=== PATIENT | female | born 1945 | race Caucasian/White ===

== ENCOUNTER → 2016-09-20 | Outpatient (CLI) | payer MEDICARE, MEDICAID ==
[~2016-09-20] MED LIST: ALPH0.156 OU; ALPH0.1S OU; ARTIDRO OU; FOSA70TA PO; HYDR12.55 PO; MILKSUS PO; MULTCAP11 PO; RECL5INJ2 IV; TIMO5OPG OU; TRAV0.00 OP; TRAZ25TA PO; XALA0.002 OU; ZOCO40TA PO; [UNRECOGNIZED DRUG - CODE] PO
--- NOTE | 2016-09-20 14:56 | REPMRS ---
Patient History The patient states she had a clinical breast exam in Patient is postmenopausal and is nulliparous. No known family history of cancer. Digital Woman Screen Mammo: September 20, 2016 - Exam #: [id number] Bilateral CC and MLO view(s) were taken. Technologist: Lay Velasco, Technologist Prior study comparison: September 19, 2015, digital woman screen mammo performed at [facility]. August 21, 2014, digital woman screen mammo performed at [facility]. June 27, 2013, bilateral digital mammo screening bilat, performed at [facility]. FINDINGS: There are scattered fibroglandular densities. There has been no change in the appearance of the mammogram from the prior studies. There is a mild amount of scattered fibroglandular density which is fairly symmetric. There is no interval development of dominant mass, architectural distortion, or clustered microcalcification suggestive of malignancy. ASSESSMENT: BI-RADS/ACR category 1 mammogram. Negative. Recommendation Routine screening mammogram in 1 year (for women over age 40). This mammogram was interpreted with the aid of an FDA-approved computer-aided dectection system. Electronically Signed By: David Perez MD 09/20/16 1923
== END ==
LOC: M WHC 13:10
PROVIDERS: ATTEND Nurse Practitioner Family
DX: Z12.31 Encounter for screening mammogram for malignant neoplasm of breast (principal); Z78.0 Asymptomatic menopausal state; Z12.12 Encounter for screening for malignant neoplasm of rectum; Z92.89 Personal history of other medical treatment
CPT/HCPCS: 82270; G0101; G0202

== ENCOUNTER → 2016-09-25 | Outpatient (CLI) | payer MEDICARE, MEDICAID ==
[2016-09-25 18:18] LABS: BASO # 0.1 K/mm3 (0.0-0.2); BASO % 0.6 % (0.0-1.0); EOS # 0.3 K/mm3 (0.0-0.50); EOS % 2.9 % (0.0-3.0); LARGE UNSTAINED CELL # 0.1 K/mm3 (0.0-0.4); LARGE UNSTAINED CELL % 1.2 % (0.0-4.0); LYMPH # 2.3 K/mm3 (1.5-4.5); LYMPH % 20.7 % (24.0-44.0); MEAN CORPUSCULAR HEMOGLOBIN 31.3 pg (27.0-33.0); MEAN CORPUSCULAR HGB CONC 33.1 g/dl (32.0-36.5); MEAN CORPUSCULAR VOLUME 94.4 fl (80.0-96.0); MONO # 0.6 K/mm3 (0.0-0.8); MONO % 5.8 % (0.0-5.0); NEUTROPHILS # 7.1 K/mm3 (1.8-7.7); NEUTROPHILS % 68.9 % (36.0-66.0); PLATELET COUNT, AUTOMATED 261 k/mm3 (150-450); RED CELL DISTRIBUTION WIDTH 14.1 % (11.5-14.5); WHITE BLOOD COUNT 10.3 K/mm3 (4.0-10.0)
[2016-09-25 18:35] LABS: ALBUMIN 3.3 GM/DL (3.2-5.2); ALBUMIN/GLOBULIN RATIO 0.92 (1.00-1.93); ALKALINE PHOSPHATASE 137 U/L (45-117); ALT/SGPT 32 U/L (12-78); ANION GAP 9 MEQ/L (8-16); AST/SGOT 36 U/L (15-37); BILIRUBIN,TOTAL 0.3 MG/DL (0.2-1.0); BLOOD UREA NITROGEN 11 MG/DL (7-18); CALCIUM LEVEL 8.9 MG/DL (8.8-10.2); CARBON DIOXIDE LEVEL 33 MEQ/L (21-32); CHLORIDE LEVEL 101 MEQ/L (98-107); CHOLESTEROL LEVEL 190 MG/DL (<200); CREATININE FOR GFR 0.76 MG/DL (0.55-1.02); GLOMERULAR FILTRATION RATE > 60.0 (>39); GLUCOSE, FASTING 114 MG/DL (83-110); POTASSIUM SERUM 4.2 MEQ/L (3.5-5.1); SODIUM LEVEL 143 MEQ/L (136-145); TOTAL PROTEIN 6.9 GM/DL (6.4-8.2); TRIGLYCERIDES LEVEL 182 MG/DL (<150)
== END ==
LOC: M WUC 10:05
PROVIDERS: ATTEND Family Medicine
DX: M81.0 Age-related osteoporosis without current pathological fracture (principal); I10 Essential (primary) hypertension

== ENCOUNTER 2016-10-06 11:26 | Outpatient (CLI) | payer MEDICARE, MEDICAID ==
[~2016-10-06] VITALS: Ht 154.9 cm; Wt 80.0 kg
[2016-10-06] MEDS ORDERED: ZOLEDRONIC ACID 5 MG in APPROPRIATE DILUENT 1 EA IV ONE (12:00)
== END 2016-10-06 12:30 | disposition home or self-care (01) ==
LOC: M INFU 11:26
PROVIDERS: ATTEND Family Medicine
DX: M81.0 Age-related osteoporosis without current pathological fracture (principal); R13.10 Dysphagia, unspecified; Z79.899 Other long term (current) drug therapy
CPT/HCPCS: 96365; J3489

== ENCOUNTER 2017-02-14 17:22 | Emergency (ER) | payer MEDICARE, MEDICAID ==
--- NOTE | 2017-02-14 19:08 | REP ---
Clinical: Pain. Technique: AP and lateral views of the right tibia / fibula. Findings: Advanced arthritic degenerative changes at the knee and ankle joints noted including osteophytosis, chondrocalcinosis, subchondral sclerosis and joint space narrowing. No acute fracture dislocation. Surrounding soft tissues normal. Impression: Advanced arthritic degenerative changes at the knee and ankle. No acute fracture or dislocation. Signed by Renato Meadows MD 02/14/2017 07:00 P
--- NOTE | 2017-02-14 19:10 | REP ---
Clinical: Lower back pain. Technique: AP, lateral, bilateral oblique and coned-down views. Comparison: 09/21/2005. Findings: Multilevel degenerative changes include bridging fused osteophytes, endplate sclerosis, disc space narrowing, and hypertrophic facet changes. Compression fracture at T12 is relatively new compared to 2006 although likely nonacute given the adjacent osteophytosis. Impression: Advanced multilevel degenerative changes. Likely nonacute compression fracture at T12. Signed by Renato Meadows MD 02/14/2017 07:02 P
--- NOTE | 2017-02-14 19:11 | REP ---
Clinical: Right lower extremity pain. Technique: AP view of the pelvis. Comparison: 09/21/2005. Findings: Advanced degenerative changes include diffuse enthesopathy as well as advanced arthritic degenerative changes to the bilateral hips including osteophytosis, joint space narrowing, and increase sclerosis to the acetabulum. No acute fracture dislocation. Impression: Advanced degenerative changes. No acute fracture or dislocation. Signed by Renato Meadows MD 02/14/2017 07:03 P
--- NOTE | 2017-02-14 19:21 | REP ---
Clinical: Pain and swelling primarily noted at the calf. Technique: Segovia scale and color Doppler evaluation using linear high frequency transducer. Findings: Moderate subcutaneous edema noted. Ultrasound examination of the right lower extremity deep venous structures from the common femoral vein to the popliteal vein demonstrates normal compressibility flow and wave patterns in response to respiration and augmentation. There is no evidence for deep venous thrombosis. Luis's cyst in the popliteal fossa measures 13 x 9 x 9 mm. Impression: No evidence for deep venous thrombosis. Subcutaneous edema. Small Luis's cyst in the popliteal fossa. Signed by Renato Meadows MD 02/14/2017 07:13 P
[2017-02-14] MEDS ORDERED: TYLE325T5 PO (19:49)
[2017-02-14 19:55] VITALS: BP 127/63
== END 2017-02-14 19:56 | disposition home or self-care (01) ==
LOC: M ED 18:08
DX: M71.21 Synovial cyst of popliteal space [Baker], right knee (principal)

== ENCOUNTER → 2017-03-31 | Outpatient (REF) | payer MEDICARE, MEDICAID ==
[~2017-03-31] MED LIST changes: +TYLE325T5 PO; -XALA0.002 OU; +XALA0.007 OU
== END ==
LOC: M SFHCLERA 14:17
PROVIDERS: ATTEND Family Medicine
DX: Z13.1 Encounter for screening for diabetes mellitus (principal); Z79.899 Other long term (current) drug therapy
CPT/HCPCS: 83036; G0463

== ENCOUNTER → 2017-06-30 | Outpatient (REF) | payer MEDICARE, MEDICAID ==
[2017-06-30 17:11] LABS: ALBUMIN/GLOBULIN RATIO 0.91 (1.00-1.93); ALKALINE PHOSPHATASE 133 U/L (45-117); ALT/SGPT 37 U/L (12-78); ANION GAP 7 MEQ/L (8-16); AST/SGOT 32 U/L (7-37); BILIRUBIN,TOTAL 0.3 MG/DL (0.2-1.0); BLOOD UREA NITROGEN 11 MG/DL (7-18); CALCIUM LEVEL 9.4 MG/DL (8.8-10.2); CARBON DIOXIDE LEVEL 35 MEQ/L (21-32); CHLORIDE LEVEL 98 MEQ/L (98-107); CREATININE FOR GFR 0.72 MG/DL (0.55-1.02); GLOMERULAR FILTRATION RATE > 60.0 (>39); GLUCOSE, FASTING 129 MG/DL (83-110); POTASSIUM SERUM 3.8 MEQ/L (3.5-5.1); SODIUM LEVEL 140 MEQ/L (136-145); TOTAL PROTEIN 6.3 GM/DL (6.4-8.2)
[2017-06-30 17:16] LABS: MEAN CORPUSCULAR HEMOGLOBIN 31.1 pg (27.0-33.0); MEAN CORPUSCULAR HGB CONC 32.8 g/dl (32.0-36.5); MEAN CORPUSCULAR VOLUME 94.9 fl (80.0-96.0); PLATELET COUNT, AUTOMATED 279 10^3/uL (150-450); RED CELL DISTRIBUTION WIDTH 13.7 % (11.5-14.5); WHITE BLOOD COUNT 8.6 10^3/uL (4.0-10.0)
== END ==
LOC: M SFHCLERA 14:00
PROVIDERS: ATTEND Family Medicine
DX: E11.9 Type 2 diabetes mellitus without complications (principal)
CPT/HCPCS: 80053; 85027; G0463

== ENCOUNTER 2017-09-13 06:57 | Day surgery (SDC) | payer MEDICARE, MEDICAID ==
[2017-09-13] MEDS: NS 1,000 ML IV (07:21)
[2017-09-13] MEDS ORDERED: PROPOFOL 200 MG/20 ML VIAL As Ordered ×2 (08:01→08:29)
[2017-09-13] MEDS ORDERED: LIDOCAINE 2% INJ 100 MG/5 ML SDV (FOR ANES.) As Ordered (08:01)
[2017-09-13] MEDS ORDERED: ATROPINE SULF 0.4 MG/ML 1ML VIAL (J0461) As Ordered (08:29)
[2017-09-13] MEDS ORDERED: hydrALAZINE INJ 20 MG/ML VIAL As Ordered (08:30)
[2017-09-13] MEDS: ALBUTEROL SULFATE 2.5 MG/0.5 ML INH NEB SOLN INH (09:24)
== END 2017-09-13 09:46 | disposition home or self-care (01) ==
LOC: M OPP 06:57
DX: Z12.11 Encounter for screening for malignant neoplasm of colon (principal); D12.0 Benign neoplasm of cecum; D12.5 Benign neoplasm of sigmoid colon; K57.30 Diverticulosis of large intestine without perforation or abscess without bleeding; K64.8 Other hemorrhoids; E11.9 Type 2 diabetes mellitus without complications; Z87.81 Personal history of (healed) traumatic fracture; J44.9 Chronic obstructive pulmonary disease, unspecified; E78.5 Hyperlipidemia, unspecified; M81.0 Age-related osteoporosis without current pathological fracture; G31.84 Mild cognitive impairment of uncertain or unknown etiology; Z79.899 Other long term (current) drug therapy
CPT/HCPCS: 45385

== ENCOUNTER → 2017-09-20 | Outpatient (CLI) | payer MEDICARE, MEDICAID ==
[2017-09-20 10:29] LABS: ESTIMATED AVERAGE GLUCOSE 126 MG/DL (60-110)
== END ==
LOC: M WUC 08:08
DX: E11.9 Type 2 diabetes mellitus without complications (principal)
CPT/HCPCS: 84443

== ENCOUNTER → 2017-09-21 | Outpatient (REF) | payer MEDICARE, MEDICAID ==
[2017-09-21 20:05] LABS: CREATININE, URINE 14.3 MG/DL; MALB URINE SIEMENS < 5.0 MG/L; MAU/CREAT RATIO 34.9 MCG/MG (0.0-30.0)
== END ==
LOC: M LAB REF 18:00
DX: E11.9 Type 2 diabetes mellitus without complications (principal)
CPT/HCPCS: 82043

== ENCOUNTER → 2017-10-20 | Outpatient (CLI) | payer MEDICARE, MEDICAID | LOC: M LRY 14:36 | DX: R05 Cough (principal) | CPT/HCPCS: 71046; 87804 ==

== ENCOUNTER 2017-11-03 14:54 | Emergency (ER) | payer MEDICARE, MEDICAID ==
[2017-11-03 16:33] LABS: BASO # 0.1 10^3/uL (0.0-0.2); BASO % 0.4 % (0.0-1.0); EOS # 0.1 10^3/uL (0.0-0.50); IMMATURE GRANULOCYTE % 0.6 % (0-3.0); LYMPH # 0.6 10^3/uL (1.5-4.5); LYMPH % 4.8 % (24.0-44.0); MEAN CORPUSCULAR HEMOGLOBIN 30.5 pg (27.0-33.0); MEAN CORPUSCULAR HGB CONC 33.3 g/dl (32.0-36.5); MEAN CORPUSCULAR VOLUME 91.5 fl (80.0-96.0); MONO # 0.7 10^3/uL (0.0-0.8); MONO % 5.5 % (0.0-5.0); NEUTROPHILS # 11.4 10^3/uL (1.8-7.7); NEUTROPHILS % 87.7 % (36.0-66.0); PLATELET COUNT, AUTOMATED 244 10^3/uL (150-450); RED BLOOD COUNT 4.92 10^6/uL (4.00-5.40); RED CELL DISTRIBUTION WIDTH 13.3 % (11.5-14.5)
[2017-11-03 17:01] LABS: ALBUMIN 3.5 GM/DL (3.2-5.2); ALKALINE PHOSPHATASE 136 U/L (45-117); ALT/SGPT 26 U/L (12-78); ANION GAP 10 MEQ/L (8-16); AST/SGOT 23 U/L (7-37); BILIRUBIN,DIRECT 0.1 MG/DL (0.0-0.2); BILIRUBIN,TOTAL 0.5 MG/DL (0.2-1.0); BLOOD UREA NITROGEN 8 MG/DL (7-18); CALCIUM LEVEL 8.6 MG/DL (8.8-10.2); CARBON DIOXIDE LEVEL 29 MEQ/L (21-32); CHLORIDE LEVEL 98 MEQ/L (98-107); CPK CREATINE PHOSPHOKINASE 76 U/L (26-192); CREATININE FOR GFR 0.67 MG/DL (0.55-1.30); GLOMERULAR FILTRATION RATE > 60.0 (>39); GLUCOSE, FASTING 115 MG/DL (70-100); POTASSIUM SERUM 3.9 MEQ/L (3.5-5.1); SODIUM LEVEL 137 MEQ/L (136-145); TROPONIN I < 0.02 NG/ML (< 0.10)
[2017-11-03 17:02] LABS: MB/CK RELATIVE INDEX 1.31 (< OR =4); NT-PRO BNP 55 PG/ML (<125)
== END 2017-11-03 18:05 | disposition home or self-care (01) ==
LOC: M ED 14:54
DX: J06.9 Acute upper respiratory infection, unspecified (principal); E11.9 Type 2 diabetes mellitus without complications; F71 Moderate intellectual disabilities; G93.9 Disorder of brain, unspecified; H40.9 Unspecified glaucoma; Z79.84 Long term (current) use of oral hypoglycemic drugs; Z79.899 Other long term (current) drug therapy
CPT/HCPCS: 71045

== ENCOUNTER → 2017-11-07 | Outpatient (REF) | payer MEDICARE, MEDICAID | LOC: M SFHCLERA 08:03 | DX: R05 Cough (principal) ==

== ENCOUNTER → 2017-11-07 | Outpatient (CLI) | payer MEDICARE, MEDICAID ==
[2017-11-07 20:03] LABS: BASO % 0.3 % (0.0-1.0); EOS # 0.1 10^3/uL (0.0-0.50); EOS % 0.7 % (0.0-3.0); HEMATOCRIT 44.7 % (36.0-47.0); HEMOGLOBIN 14.7 g/dl (12.0-16.0); IMMATURE GRANULOCYTE % 0.4 % (0-3.0); LYMPH # 1.8 10^3/uL (1.5-4.5); LYMPH % 25.6 % (24.0-44.0); MEAN CORPUSCULAR HEMOGLOBIN 30.2 pg (27.0-33.0); MEAN CORPUSCULAR HGB CONC 32.9 g/dl (32.0-36.5); MONO # 0.9 10^3/uL (0.0-0.8); MONO % 12.3 % (0.0-5.0); NEUTROPHILS # 4.3 10^3/uL (1.8-7.7); NEUTROPHILS % 60.7 % (36.0-66.0); PLATELET COUNT, AUTOMATED 196 10^3/uL (150-450); RED BLOOD COUNT 4.86 10^6/uL (4.00-5.40); RED CELL DISTRIBUTION WIDTH 13.9 % (11.5-14.5)
[2017-11-07 20:08] LABS: ANION GAP 11 MEQ/L (8-16); BLOOD UREA NITROGEN 8 MG/DL (7-18); CALCIUM LEVEL 8.9 MG/DL (8.8-10.2); CARBON DIOXIDE LEVEL 34 MEQ/L (21-32); CHLORIDE LEVEL 89 MEQ/L (98-107); CREATININE FOR GFR 0.57 MG/DL (0.55-1.30); GLOMERULAR FILTRATION RATE > 60.0 (>39); GLUCOSE, FASTING 99 MG/DL (70-100); POTASSIUM SERUM 3.6 MEQ/L (3.5-5.1); SODIUM LEVEL 134 MEQ/L (136-145)
== END ==
LOC: M WUC 15:45
DX: R05 Cough (principal)
CPT/HCPCS: 80048

== ENCOUNTER 2017-12-12 07:28 | Day surgery (SDC) | payer MEDICARE, MEDICAID ==
[2017-12-12] MEDS ORDERED: NS 1,000 ML IV (08:00)
[2017-12-12] MEDS ORDERED: PROPOFOL 500 MG/50 ML VIAL As Ordered (09:20)
[2017-12-12] MEDS ORDERED: LIDOCAINE 2% INJ 100 MG/5 ML SDV (FOR ANES.) As Ordered (09:20)
== END 2017-12-12 09:39 | disposition home or self-care (01) ==
LOC: M OPP 07:28
DX: K64.8 Other hemorrhoids (principal); K63.5 Polyp of colon; K57.30 Diverticulosis of large intestine without perforation or abscess without bleeding; Z86.010 Personal history of colon polyps; E11.9 Type 2 diabetes mellitus without complications; E78.00 Pure hypercholesterolemia, unspecified; K59.00 Constipation, unspecified; J44.9 Chronic obstructive pulmonary disease, unspecified; F79 Unspecified intellectual disabilities; M81.0 Age-related osteoporosis without current pathological fracture; Z79.84 Long term (current) use of oral hypoglycemic drugs; Z79.899 Other long term (current) drug therapy; Z78.0 Asymptomatic menopausal state; Z09 Encounter for follow-up examination after completed treatment for conditions other than malignant neoplasm
CPT/HCPCS: 45385

== ENCOUNTER → 2018-02-02 | Outpatient (CLI) | payer MEDICARE, MEDICAID | LOC: M WHC 11:20 | DX: Z12.31 Encounter for screening mammogram for malignant neoplasm of breast (principal); Z01.419 Encounter for gynecological examination (general) (routine) without abnormal findings (principal) | CPT/HCPCS: 77067 ==

== ENCOUNTER → 2018-03-01 | Outpatient (CLI) | payer MEDICARE, MEDICAID | LOC: M LRY 15:30 | DX: R05 Cough (principal) | CPT/HCPCS: 71046; G0463 ==

== ENCOUNTER → 2018-03-09 | Outpatient (CLI) | payer MEDICARE, MEDICAID | LOC: M LRY 10:05 | DX: R05 Cough (principal); W19.XXXA Unspecified fall, initial encounter; V48.4XXA Person boarding or alighting a car injured in noncollision transport accident, initial encounter; R06.1 Stridor; Y92.481 Parking lot as the place of occurrence of the external cause | CPT/HCPCS: 70360; 94640 ==

== ENCOUNTER → 2018-04-04 | Outpatient (REF) | payer MEDICARE, MEDICAID ==
[2018-04-04 17:44] LABS: ESTIMATED AVERAGE GLUCOSE 126 MG/DL (60-110)
[2018-04-04 17:49] LABS: BASO # 0.1 10^3/uL (0.0-0.2); BASO % 0.7 % (0.0-1.0); EOS # 0.2 10^3/uL (0.0-0.50); EOS % 2.2 % (0.0-3.0); HEMATOCRIT 42.3 % (36.0-47.0); HEMOGLOBIN 13.8 g/dl (12.0-15.5); IMMATURE GRANULOCYTE % 0.7 % (0-3.0); LYMPH % 27.7 % (24.0-44.0); MEAN CORPUSCULAR HEMOGLOBIN 30.5 pg (27.0-33.0); MEAN CORPUSCULAR HGB CONC 32.6 g/dl (32.0-36.5); MEAN CORPUSCULAR VOLUME 93.6 fl (80.0-96.0); MONO # 1.1 10^3/uL (0.0-0.8); MONO % 9.9 % (0.0-5.0); NEUTROPHILS # 6.3 10^3/uL (1.8-7.7); NEUTROPHILS % 58.8 % (36.0-66.0); PLATELET COUNT, AUTOMATED 303 10^3/uL (150-450); RED BLOOD COUNT 4.52 10^6/uL (4.00-5.40); RED CELL DISTRIBUTION WIDTH 13.5 % (11.5-14.5); WHITE BLOOD COUNT 10.7 10^3/uL (4.0-10.0)
[2018-04-04 18:07] LABS: ALBUMIN/GLOBULIN RATIO 0.91 (1.00-1.93); ALKALINE PHOSPHATASE 114 U/L (45-117); ALT/SGPT 25 U/L (12-78); ANION GAP 9 MEQ/L (8-16); AST/SGOT 21 U/L (7-37); BILIRUBIN,TOTAL 0.2 MG/DL (0.2-1.0); BLOOD UREA NITROGEN 12 MG/DL (7-18); CALCIUM LEVEL 9.1 MG/DL (8.8-10.2); CARBON DIOXIDE LEVEL 32 MEQ/L (21-32); CHLORIDE LEVEL 99 MEQ/L (98-107); CHOLESTEROL LEVEL 195 MG/DL (<200); CHOLESTEROL RISK RATIO 3.362 (<5); CREATININE FOR GFR 0.57 MG/DL (0.55-1.30); GLOMERULAR FILTRATION RATE > 60.0 (>39); GLUCOSE, FASTING 88 MG/DL (70-100); HDL CHOLESTEROL 58 MG/DL (>40); LDL CHOLESTEROL 88.8 MG/DL (<100); NON-HDL-C 137 MG/DL; POTASSIUM SERUM 3.9 MEQ/L (3.5-5.1); SODIUM LEVEL 140 MEQ/L (136-145); THYROID STIMULATING HORMONE 0.923 uIU/ML (0.358-3.740); TOTAL PROTEIN 6.3 GM/DL (6.4-8.2); TRIGLYCERIDES LEVEL 241 MG/DL (<150)
[2018-04-05 11:03] LABS: CREATININE, URINE 41.2 MG/DL; MALB URINE SIEMENS < 5.0 MG/L; MAU/CREAT RATIO 12.1 MCG/MG (0.0-30.0)
== END ==
LOC: M SFHCLERA 14:47
DX: E11.9 Type 2 diabetes mellitus without complications (principal)
CPT/HCPCS: 84443

== ENCOUNTER → 2018-06-07 | Outpatient (CLI) | payer MEDICARE, MEDICAID | LOC: M WHC 08:56 | DX: M81.0 Age-related osteoporosis without current pathological fracture (principal) | CPT/HCPCS: 77080 ==

== ENCOUNTER → 2018-09-24 | Outpatient (CLI) | payer MEDICARE, MEDICAID ==
[~2018-09-24] MED LIST changes: +ALBU83IN INH; +CALCTAB29 PO; +COLA100C5 PO; +DEBR6.5S4 AU; +DULC10SU2 PR; +METF500T13 PO; +MILK120011 PO; -MILKSUS PO; +OYST1TAB5 PO; +PROAAER10 INH
[2018-09-24 18:40] LABS: HEMOGLOBIN A1c 5.9 %
== END ==
LOC: M WUC 13:58
PROVIDERS: ATTEND Family Medicine
DX: E11.9 Type 2 diabetes mellitus without complications (principal)

== ENCOUNTER → 2019-02-05 | Outpatient (CLI) | payer MEDICARE, MEDICAID ==
[~2019-02-05] MED LIST changes: +TIMO0.5S7 OU; -TIMO5OPG OU; +TRAZ1TAB36 PO; -TRAZ25TA PO
--- NOTE | 2019-02-05 11:54 | REPMRS ---
Patient History The patient states she had a clinical breast exam in 01/2019. Patient is postmenopausal and is nulliparous. No known family history of cancer. No Hormone Replacement Therapy [facility] lifetime risk for breast cancer is 5.4%. Digital Woman Screen Mammo: February 05, 2019 - Exam #: [id number] Bilateral CC and MLO view(s) were taken. Technologist: Jeniffer Trejo, Technologist Prior study comparison: February 02, 2018, bilateral digital woman screen mammo performed at [facility]. September 20, 2016, digital woman screen mammo performed at [facility] [employer] [facility]. FINDINGS: There are scattered fibroglandular densities. There has been no change in the appearance of the mammogram from the prior studies. There is a mild amount of residual fibroglandular tissue which is fairly symmetric. There is no interval development of dominant mass, architectural distortion, or clustered microcalcification suggestive of malignancy. Assessment: BI-RADS/ACR category 1 mammogram. Negative Mammogram. Recommendation Routine screening mammogram in 1 year (for women over age 40). This mammogram was interpreted with the aid of an FDA-approved computer-aided dectection system. Electronically Signed By: Jaiden Segovia MD 02/05/19 [id number]
== END ==
LOC: M WHC 10:20
PROVIDERS: ATTEND Nurse Practitioner Family
DX: Z01.419 Encounter for gynecological examination (general) (routine) without abnormal findings (principal); Z12.31 Encounter for screening mammogram for malignant neoplasm of breast; Z78.0 Asymptomatic menopausal state
CPT/HCPCS: 77067; G0101

== ENCOUNTER → 2019-03-20 | Outpatient (REF) | payer MEDICARE, MEDICAID ==
[2019-03-20 20:27] LABS: BASO # 0.1 10^3/uL (0.0-0.2); BASO % 0.4 % (0.0-1.0); EOS # 0.2 10^3/uL (0.0-0.50); HEMATOCRIT 41.5 % (36.0-47.0); HEMOGLOBIN 13.4 g/dl (12.0-15.5); LYMPH # 2.9 10^3/uL (1.5-4.5); LYMPH % 25.4 % (24.0-44.0); MEAN CORPUSCULAR HEMOGLOBIN 32.1 pg (27.0-33.0); MEAN CORPUSCULAR HGB CONC 32.3 g/dl (32.0-36.5); MEAN CORPUSCULAR VOLUME 99.5 fl (80.0-96.0); MONO # 1.1 10^3/uL (0.0-0.8); MONO % 9.9 % (0.0-5.0); NEUTROPHILS # 6.9 10^3/uL (1.8-7.7); NEUTROPHILS % 61.8 % (36.0-66.0); PLATELET COUNT, AUTOMATED 262 10^3/uL (150-450); RED BLOOD COUNT 4.17 10^6/uL (4.00-5.40); WHITE BLOOD COUNT 11.2 10^3/uL (4.0-10.0)
[2019-03-20 20:31] LABS: ALBUMIN 3.3 GM/DL (3.2-5.2); ALT/SGPT 25 U/L (12-78); BILIRUBIN,TOTAL 0.3 MG/DL (0.2-1.0); BLOOD UREA NITROGEN 13 MG/DL (7-18); CALCIUM LEVEL 9.4 MG/DL (8.8-10.2); CARBON DIOXIDE LEVEL 30 MEQ/L (21-32); CHLORIDE LEVEL 103 MEQ/L (98-107); CHOLESTEROL LEVEL 208 MG/DL (<200); CREATININE FOR GFR 0.63 MG/DL (0.55-1.30); GLOMERULAR FILTRATION RATE > 60.0 (>39); GLUCOSE, FASTING 81 MG/DL (70-100); HDL CHOLESTEROL 52 MG/DL (>40); NON-HDL-C 156 MG/DL; POTASSIUM SERUM 4.5 MEQ/L (3.5-5.1); SODIUM LEVEL 139 MEQ/L (136-145); TOTAL PROTEIN 6.5 GM/DL (6.4-8.2); TRIGLYCERIDES LEVEL 404 MG/DL (<150)
[2019-03-20 20:42] LABS: HEMOGLOBIN A1c 5.6 %
== END ==
LOC: M SFHCLERA 15:11
PROVIDERS: ATTEND Family Medicine
DX: E11.9 Type 2 diabetes mellitus without complications (principal)
CPT/HCPCS: 80053; 80061; 83036; 85025; G0463

== ENCOUNTER → 2019-10-25 | Outpatient (REF) | payer MEDICARE, MEDICAID ==
[2019-10-25 17:13] LABS: BLOOD UREA NITROGEN 14 MG/DL (7-18); CALCIUM LEVEL 9.4 MG/DL (8.8-10.2); CARBON DIOXIDE LEVEL 32 MEQ/L (21-32); CHLORIDE LEVEL 101 MEQ/L (98-107); CREATININE FOR GFR 0.62 MG/DL (0.55-1.30); GLOMERULAR FILTRATION RATE > 60.0 (>39); GLUCOSE, FASTING 102 MG/DL (70-100); SODIUM LEVEL 137 MEQ/L (136-145)
[2019-10-25 17:24] LABS: HEMOGLOBIN A1c 5.5 %
== END ==
LOC: M SFHCLERA 13:55
PROVIDERS: ATTEND Family Medicine
DX: E11.9 Type 2 diabetes mellitus without complications (principal)
CPT/HCPCS: 80048; 83036; G0463

== ENCOUNTER → 2020-03-06 | Outpatient (CLI) | payer MEDICARE, MEDICAID ==
[~2020-03-06] MED LIST changes: +BRIM0.2S13 OD; +CALC600C3 PO; +DEBR6.5S4 OU; +DULC5TAB PO; +LISI-542 PO; +MOM30SS PO; +MULT1TAB7 PO; +TIMO0.2529 OU; +TRAZ-252 PO; +VENTAER INH
== END ==
LOC: M LABSMTC 12:23
PROVIDERS: ATTEND Anesthesiology
DX: Z01.818 Encounter for other preprocedural examination (principal); Z11.59 Encounter for screening for other viral diseases
CPT/HCPCS: C9803; U0003

== ENCOUNTER 2020-03-11 06:55 | Day surgery (SDC) | payer MEDICARE, MEDICAID ==
[~2020-03-11] VITALS: Ht 152.4 cm; Wt 72.1 kg
[~2020-03-11 06:55] MED LIST changes: +NS 1,000 ML IV ONE
[2020-03-11] MEDS ORDERED: propofoL 200 MG/20 ML VIAL As Ordered ONE (07:53)
[2020-03-11] MEDS ORDERED: LIDOCAINE 2% 100MG/5ML SDV (FOR ANES.) As Ordered ONE (07:53)
[2020-03-11] MEDS ORDERED: ePHEDrine SULFATE 25 MG/5 ML(5MG/ML) SYRINGE As Ordered ONE (08:49)
--- NOTE | 2020-03-11 08:55 | ROOR ---
Patient Name: Carmen Chambers Procedure Date: 03/11/2020 8:17 AM Date of : 1945 Age: 74 Room: [facility] Gender: Female Note Status: Finalized Procedure: Colonoscopy Indications: High risk colon cancer surveillance: Personal history of colonic polyps, Surveillance: History of piecemeal removal adenoma on last colonoscopy (< 3 yrs), Last colonoscopy: November 2017 Providers: Chris MICHAUD MD Referring MD: Valentin Carwtright DO Requesting Provider: Medicines: Monitored Anesthesia Care Complications: No immediate complications. Procedure: Pre-Anesthesia Assessment: - The heart rate, respiratory rate, oxygen saturations, blood pressure, adequacy of pulmonary ventilation, and response to care were monitored throughout the procedure. The Colonoscope was introduced through the anus and advanced to the terminal ileum, with identification of the appendiceal orifice and IC valve. The colonoscopy was performed without difficulty. The patient tolerated the procedure well. The quality of the bowel preparation was adequate. Findings: The perianal and digital rectal examinations were normal. A 8 mm polyp was found in the ileocecal valve. The polyp was flat. The polyp was removed with a cold snare. Resection and retrieval were complete. A 5 mm polyp was found in the sigmoid colon. The polyp was sessile. The polyp was removed with a cold snare. Resection and retrieval were complete. Multiple medium-mouthed diverticula were found in the sigmoid colon. Internal hemorrhoids were found during retroflexion. The hemorrhoids were medium-sized. Impression: - One 8 mm polyp at the ileocecal valve, removed with a cold snare. Resected and retrieved. - One 5 mm polyp in the sigmoid colon, removed with a cold snare. Resected and retrieved. - Diverticulosis in the sigmoid colon. - Internal hemorrhoids. Recommendation: - Repeat colonoscopy in 3 years for surveillance of polyps greater than 1 cm in size (2018). - Incomplete removal of cecal adenoma 08/2017. repeat exam 11/2017 showed small residual. Todays exam again showed small residual. This was visually removed completely today. Rec repeat exam in about 3 years, before increasing intervals. Chris Michaud MD Chris MICHAUD MD 03/11/2020 8:55:04 AM Electronically signed by Chris MICHAUD MD Number of Addenda: 0 Note Initiated On: 03/11/2020 8:17 AM Estimated Blood Loss: Estimated blood loss: none.
[2020-03-11 09:38] VITALS: BP 147/69
== END 2020-03-11 09:35 | disposition home or self-care (01) ==
LOC: M OPP 06:55
PROVIDERS: ATTEND Internal Medicine Gastroenterology
DX: Z12.11 Encounter for screening for malignant neoplasm of colon (principal); Z86.010 Personal history of colon polyps; K64.8 Other hemorrhoids; K57.30 Diverticulosis of large intestine without perforation or abscess without bleeding; K63.5 Polyp of colon; Z79.84 Long term (current) use of oral hypoglycemic drugs; Z79.899 Other long term (current) drug therapy

== ENCOUNTER → 2020-05-29 | Outpatient (CLI) | payer MEDICARE, MEDICAID ==
[~2020-05-29] MED LIST changes: -NS 1,000 ML IV ONE
--- NOTE | 2020-06-02 09:46 | DEXA ---
AP SPINE L1 - L4 1.743 4.4 6.2 LT FEMUR TOTAL 0.816 -1.5 0.1 LT NECK 0.764 -2.0 -0.1 RT FEMUR TOTAL 0.797 -1.7 0.0 RT NECK 0.775 -1.9 0.0 TOTAL BODY TOTAL OTHER COMMENTS: Normal bone densitometry of the spine. There is low bone density of the hips. The density of the spine has increased 48.1% since initial exam on 06/10/2004. The increased 0.9% since most recent exam on 06/07/2018. The density of the left hip has increased 6.0% since the initial exam on 06/10/2004. The density of the left hip has increased 3.3% since the most recent exam on 06/07/2018. The density of the right hip has increased 10.8% since the initial exam on 06/10/2004. The density of the right hip has decreased 3.0% since the most recent exam on 06/07/2018. FOLLOW-UP: Recommendation for the next bone density exam: 2 years. SHERIF
== END ==
LOC: M WHC 09:07
PROVIDERS: ATTEND Family Medicine
DX: Z13.820 Encounter for screening for osteoporosis (principal); M85.851 Other specified disorders of bone density and structure, right thigh; M85.852 Other specified disorders of bone density and structure, left thigh

== ENCOUNTER → 2020-11-19 | Outpatient (CLI) | payer MEDICARE, MEDICAID ==
[~2020-11-19] MED LIST changes: -LISI-542 PO; +LISI-898 PO
[2020-11-19 10:35] LABS: BLOOD UREA NITROGEN 17 MG/DL (7-18); CALCIUM LEVEL 9.6 MG/DL (8.8-10.2); CARBON DIOXIDE LEVEL 33 MEQ/L (21-32); CHLORIDE LEVEL 104 MEQ/L (98-107); CHOLESTEROL LEVEL 227 MG/DL (<200); CHOLESTEROL RISK RATIO 3.783 (<5); CREATININE FOR GFR 0.66 MG/DL (0.55-1.30); GLOMERULAR FILTRATION RATE > 60.0 (>39); GLUCOSE, FASTING 87 MG/DL (70-100); HDL CHOLESTEROL 60 MG/DL (>40); LDL CHOLESTEROL 102 MG/DL (<100); NON-HDL-C 167 MG/DL; POTASSIUM SERUM 5.2 MEQ/L (3.5-5.1); SODIUM LEVEL 140 MEQ/L (136-145); TRIGLYCERIDES LEVEL 327 MG/DL (<150)
[2020-11-19 10:43] LABS: HEMOGLOBIN A1c 5.4 %
[2020-11-19 17:11] LABS: CREATININE, URINE 16.2 MG/DL; MALB URINE SIEMENS 18.1 MG/L; MAU/CREAT RATIO 111.7 MCG/MG (0.0-30.0)
== END ==
LOC: M WUC 08:21
PROVIDERS: ATTEND Family Medicine
DX: E11.9 Type 2 diabetes mellitus without complications (principal); E78.5 Hyperlipidemia, unspecified; I10 Essential (primary) hypertension

== ENCOUNTER → 2021-03-02 | Outpatient (CLI) | payer MEDICARE, MEDICAID ==
--- NOTE | 2021-03-02 13:10 | REPMRS ---
Patient History The patient states she had a clinical breast exam in February 2021. Patient is postmenopausal and is nulliparous. No Hormone Replacement Therapy [facility] Direct care staff states no breast complaints today. Digital Woman Screen Mammo: March 02, 2021 - Exam #: [id number] Bilateral CC and MLO view(s) were taken. Technologist: Mei Hurtado, Technologist Prior study comparison: February 28, 2020, bilateral digital woman screen mammo performed at [facility]. February 05, 2019, bilateral digital woman screen mammo performed at [facility]. FINDINGS: There are scattered fibroglandular densities. Screening. Digital screening (2D) mammography was performed bilaterally in the CC and MLO projections. Todays exam was compared to the prior exam/exams. By history, the patient has no complaints of a palpable breast abnormality or other significant breast complaints. The breasts are unchanged in size and shape. There are no juan-soft tissue densities or spiculated masses. There is no internal architectural distortion.Once again, stable benign appearing calcifications are seen. There are no suspicious juan-calcific clusters. Skin thickening or nipple retraction is not present. IMPRESSION: BI-RADS Category 2- Benign Findings. There is no evidence of malignant alteration of the breasts. Followup examination recommended in one year. The Volpara volumetric breast density category is B, there are scattered areas of fibroglandular densities. This mammogram was read with the assistance of [employer] [employer],an FDA approved computer aided detection system for mammography. The lifetime Tyrer-Cuzick score is 4.7 % Negative x-ray reports should not delay surgical consultation if a dominant or clinically suspicious mass is present. Not all breast cancers can be identified by mammography. Therefore, we recommend that you continue to perform regular breast self-examination and physical examination and then promptly contact your physician of any concerns or changes. Adenosis and dense breasts may obscure an underlying neoplasm. Assessment: BI-RADS/ACR category 2 mammogram. Benign Findings. Recommendation Routine screening mammogram in 1 year. Electronically Signed By: Nikolas Paz DO 03/02/21 [id number]
== END ==
LOC: M WHC 10:53
PROVIDERS: ATTEND Nurse Practitioner Women's Health
DX: Z12.31 Encounter for screening mammogram for malignant neoplasm of breast (principal); Z78.0 Asymptomatic menopausal state

== ENCOUNTER → 2021-04-30 | Outpatient (CLI) | payer MEDICARE, MEDICAID | LOC: M LABSMTC 09:16 | PROVIDERS: ATTEND Pediatrics | DX: Z20.822 Contact with and (suspected) exposure to COVID-19 (principal) | CPT/HCPCS: C9803; U0003 ==

== ENCOUNTER → 2021-05-08 | Outpatient (REF) | payer MEDICARE, MEDICAID ==
[2021-05-08 20:10] LABS: APPEARANCE, URINE CLEAR (CLEAR); BACTERIA, URINE AUTO 3+ (NEGATIVE); BILIRUBIN, URINE AUTO NEGATIVE (NEGATIVE); BLOOD, URINE BLOOD NEGATIVE (NEGATIVE); COLOR, URINE STRAW (YELLOW); GLUCOSE, URINE (UA) AUTO NEGATIVE (NEGATIVE); KETONE, URINE AUTO NEGATIVE (NEGATIVE); LEUKOCYTE ESTERASE, URINE AUTO 1+ (NEGATIVE); MUCUS, URINE SMALL (NEGATIVE); NITRITE, URINE AUTO NEGATIVE (NEGATIVE); PROTEIN, URINE AUTO NEGATIVE (NEGATIVE); RBC, URINE AUTO 1 /HPF (0-3); SPECIFIC GRAVITY URINE AUTO 1.004 (1.002-1.035); SQUAMOUS EPITHELIAL CELL UR AU 1 /HPF (0-6); UROBILINOGEN, URINE AUTO 0.2 mg/dL (0.0-2.0); WBC, URINE AUTO 10 /HPF (0-3)
== END ==
LOC: M LAB REF 19:35
PROVIDERS: ATTEND Family Medicine
DX: R35.0 Frequency of micturition (principal)

== ENCOUNTER → 2021-05-20 | Outpatient (REF) | payer MEDICARE, MEDICAID ==
[2021-05-20 18:13] LABS: APPEARANCE, URINE CLEAR (CLEAR); BACTERIA, URINE AUTO NEGATIVE (NEGATIVE); BILIRUBIN, URINE AUTO NEGATIVE (NEGATIVE); BLOOD, URINE BLOOD NEGATIVE (NEGATIVE); COLOR, URINE STRAW (YELLOW); GLUCOSE, URINE (UA) AUTO NEGATIVE (NEGATIVE); KETONE, URINE AUTO NEGATIVE (NEGATIVE); LEUKOCYTE ESTERASE, URINE AUTO NEGATIVE (NEGATIVE); NITRITE, URINE AUTO NEGATIVE (NEGATIVE); PROTEIN, URINE AUTO NEGATIVE (NEGATIVE); RBC, URINE AUTO 0 /HPF (0-3); SPECIFIC GRAVITY URINE AUTO 1.003 (1.002-1.035); SQUAMOUS EPITHELIAL CELL UR AU 1 /HPF (0-6); UROBILINOGEN, URINE AUTO 0.2 mg/dL (0.0-2.0); WBC, URINE AUTO 1 /HPF (0-3)
== END ==
LOC: M SFHCLERA 15:32
PROVIDERS: ATTEND Family Medicine
DX: R32 Unspecified urinary incontinence (principal)

== ENCOUNTER → 2021-06-24 | Outpatient (CLI) | payer MEDICARE, MEDICAID ==
--- NOTE | 2021-06-24 16:40 | REPVR ---
PROCEDURE INFORMATION: Exam: CT Head Without Contrast Exam date and time: 06/24/2021 1:28 PM Age: 75 years old Clinical indication: Dizziness TECHNIQUE: Imaging protocol: Computed tomography of the head without contrast. Radiation optimization: All CT scans at this facility use at least one of these dose optimization techniques: automated exposure control; mA and/or kV adjustment per patient size (includes targeted exams where dose is matched to clinical indication); or iterative reconstruction. COMPARISON: CR SOFT TISSUE NECK 03/09/2018 10:13 AM FINDINGS: Brain: There is no acute intracranial hemorrhage or mass effect. Moderate diffuse volume loss is within the range of normal for patient age. There are small vessel ischemic changes within the periventricular and subcortical white matter, but the normal melendez-white matter delineation is maintained. Cerebral ventricles: N prominence of the ventricular system is commensurate with volume loss. Paranasal sinuses: Visualized sinuses are unremarkable. No fluid levels. Mastoid air cells: Visualized mastoid air cells are well aerated. Bones/joints: Unremarkable. No acute fracture. Soft tissues: Unremarkable. IMPRESSION: No acute hemorrhage or edema. Electronically signed by: Anny Correa On 06/24/2021 16:39:57 PM
== END ==
LOC: M PLAIMG 13:03
PROVIDERS: ATTEND Psychiatry & Neurology Neurology
DX: F48.2 Pseudobulbar affect (principal); R26.81 Unsteadiness on feet

== ENCOUNTER 2021-07-13 02:08 | Emergency (ER) | payer MEDICARE, MEDICAID ==
--- NOTE | 2021-07-13 02:48 | REPVR ---
PROCEDURE INFORMATION: Exam: CT Head Without Contrast Exam date and time: 07/13/2021 2:30 AM Age: 75 years old Clinical indication: Injury or trauma; Fall; Blunt trauma (contusions or hematomas); Additional info: Fall with head trauma TECHNIQUE: Imaging protocol: Computed tomography of the head without contrast. Radiation optimization: All CT scans at this facility use at least one of these dose optimization techniques: automated exposure control; mA and/or kV adjustment per patient size (includes targeted exams where dose is matched to clinical indication); or iterative reconstruction. COMPARISON: 1. CT Head without contrast 2021-06-24 13:08 2. CR SOFT TISSUE NECK 2018-03-09 10:13 FINDINGS: Brain: Diffuse severe cerebral volume loss. Diffuse moderate to severe patchy low attenuation in the white matter compatible with chronic small vessel ischemic disease. No midline shift, mass, fluid collection, or evidence of hemorrhage. Scattered chronic appearing lacunae in the deep melendez structures and/or periventricular white matter. Cerebral ventricles: Ventricular enlargement proportional to volume loss. Paranasal sinuses: Visualized sinuses are unremarkable. No fluid levels. Mastoid air cells: Visualized mastoid air cells are well aerated. Bones/joints: Unremarkable. No acute fracture. Soft tissues: Unremarkable. IMPRESSION: Moderate to severe involutional changes, no acute intracranial abnormality. Electronically signed by: Chris Evans On 07/13/2021 02:47:49 AM
--- NOTE | 2021-07-13 03:04 | REPVR ---
PROCEDURE INFORMATION: Exam: CT Cervical Spine Without Contrast Exam date and time: 07/13/2021 2:30 AM Age: 75 years old Clinical indication: Injury or trauma; Fall; Blunt trauma; Additional info: Fall with head trauma TECHNIQUE: Imaging protocol: Computed tomography images of the cervical spine without contrast. Radiation optimization: All CT scans at this facility use at least one of these dose optimization techniques: automated exposure control; mA and/or kV adjustment per patient size (includes targeted exams where dose is matched to clinical indication); or iterative reconstruction. COMPARISON: 1. CT Head without contrast 2021-06-24 13:08 2. CR SOFT TISSUE NECK 2018-03-09 10:13 FINDINGS: Bones/joints: Maintained vertebral body heights. No acute vertebral fracture/subluxation. Discs/Spinal canal/Neural foramina: Ankylosis of the cervical spine. 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 The spinal canal in general measures 6 mm. Trachea: Tracheal malacia. Lungs: Lung apices are normal. Soft tissues: Unremarkable. IMPRESSION: 1. Ankylosis of the cervical spine. 2. No acute vertebral fracture/subluxation. 3. 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 The spinal canal in general measures 6 mm. Electronically signed by: Chris Evans On 07/13/2021 03:04:02 AM
[2021-07-13 04:27] VITALS: BP 146/62
--- OUTSIDE RECORDS SUMMARY | 2021-07-13 04:33 | CCD ---
Author Author [facility] Organization [facility] Address Unknown Phone Unavailable Care Team Providers Care Clinical Education Assistant Name Role Phone Gabbie Valentin Unavailable PROBLEMS Type Condition ICD9-CM Code VWY10-LS Code Onset Dates Condition S tatus W/U Status Risk SNOMED Code Notes Problem Compression fracture of body of thoracic vertebra M48.54XA Active confirmed 459255262 Problem New onset of diabetes mellitus in pediatric patient E11.9 Active confirmed 424164489 Problem Type 2 diabetes mellitus wit hout complication, without long-term current use of insulin E11.9 Active confirmed 410310583 Problem Senile osteoporosis M81.0 Active confirmed 36837125 Problem Age related osteoporosis, unspecified pathologic al fracture presence M81.0 Active confirmed 343743943 Problem Mental retardation F79 Active confirmed 9 7997649 Problem Dyslipidemia E78.5 Active confirmed 7710149 07 Problem Constipation, unspecified constipation type K59.00 Active confirmed 94781527 Problem Essential hypertension I10 Active confirmed 84317502 Problem Sinusitis, unspecified chronicity, unspecified location J32.9 Active confirmed 11378037 Problem Bronchitis, mucopurulent recurrent J41.1 Activ e confirmed 05657045 Problem Osteoporosis, unspecified os teoporosis type, unspecified pathological fracture presence M81.0 Active confirmed 91662911 ALLERGIES No Known Allergies ENCOUNTERS from 1945 to 2021-04-15 Encounter Location Date Provider Diagnosis [facility] [address] [phone] [place] [address] Mar, Valentin Cartwright IMMUNIZATIONS Vaccine Route Administration Date Status Influenza 18 yrs & older Flublok IM Intramuscular Jun 11, 2020 Administered Pneumococcal 0.5mL Prevnar 13 Unknown January 05, 2016 Ad ministered TD Adult 0.5mL Tetanus Unknown December 04, 2014 Administe red Influenza 6mo & up Fluzone Unknown Jun 20, 2017 Admin istered Hepatitis B Adult 1.0mL Engerix-B IM Intramuscular October 28 1 Administered Hepatitis B Adult 1.0mL Engerix-B IM Intramuscular Jun 11, 2020 Administered Hepatitis B Adult 1.0mL Engerix-B IM Intramuscular Apr 29, 2020 Administered SOCIAL HISTORY Tobacco Use: Social History Observation Description Date Details (start date - stop date) Never Smoker Sex Assigned At : Social History Observation Description Sex Assigned At Unknown Language: Question Answer Notes Languages spoken: Bangladeshi Alcohol Screening: Question Answer Notes Did you have a drink containing alcohol in the past year? No Points 0 Interpretation Negative BMI Care Goal Follow-Up Question Answer Notes Above Normal BMI Follow-Up Giving encouragement to exercise Tobacco Use: Question Answer Notes Are you a: never smoker never smoker REASON FOR REFERRAL No Information VITAL SIGNS No information MEDICATIONS Medication SIG (Take, Route, Frequency, Duration) Notes Start Da te End Date Status Albuterol Sulfate HFA 108 (90 Base) MCG/ACT 2 puffs as needed for wheezing Inhalation every 6 hrs for 25 Ac tive May Use - Food allergy: None Diet cons istency: one inch pieces Diet: Meditteranean, heart healty, diabetic, regular liquids May, 020 Active Lisinopril 5 MG 1 tablet orally Once a day for 90 days Active Tab-A-Yashira - TAKE ONE TABLET BY MOUTH ONCE DAILY for 60 Not-Taking guaiFENesin 200 MG 2 tablet as needed Orally ev may 4 hrs (MDD 2400mg) for 15 days Feb, Not-Taking Multivitamins MULTIVITAMIN 1 tab(s) Orally daily for 90 days Jul, Active Debrox 6.5 % 5 drops into affected ear Otic once a we ek for 30 day(s) May drop into patient's ears as directed Active Trazodone HCl 50 MG TAKE ONE TABLET BY MOUTH AT BEDTIME Orally Daily for 90 days Active Reclast 5 MG/100ML Intravenous yearly/last given 08/20/13 Not-Taking Multivitamin - TAKE ONE TABLET BY MOUTH ONCE DAILY for 30 Active Sudafed 30 MG 1 tablet as needed Orally every 6 hrs for 5 day(s) Feb, Not-Taking Milk of Magnesia 30 ml on day 3 or 4 if no bm. Active Augmentin 875-125 MG 1 tablet Orally every 12 hrs for 10 day(s) Feb, Not-Taking Colace 100 MG 1 capsule Orally bid for 90 days Active Medrol 4 MG as directed per dose pack Or ally as directed per dose pack for 6 days Feb, Not-Taking predniSONE 20 MG 2 tablet Orally Once a day for 5 day(s) 2 Jan, Not-Taking Fleet Enema 7-19 GM/118ML 1 Rectal on day 6 if no bm Not-Taking Latanoprost 0.005 % 1 drop into affected eye in the evening Ophthalmic Once a day Active Trazodone 50 50mg 1 tab orally qhs for 90 day(s) Not-Taking Occupational Therapy as directed fine motor tasks and ADLsDx: F79 Mar, Active Shingrix 50 mcg/0.5 mL As Directed Intramuscular as directed for 2 days Apr, Not-Taking Timolol Hemihydrate 0.5 % 1 drop into affected eye Ophthalmic Once a day Active Mucinex DM 30-600 MG 1 tablet as needed Orally every 12 hrs for 10 day(s) Feb, Not-Taking Zocor 40 40mg 1 tab(s) oral before bedtime Active Calcium + D3 600-200 MG-UNIT 1 tablet with a meal Orally Once a day Active Brimonidine Tartrate 0.2 % 1 drop into affected eye Ophthalmic twic e daily Active Simvastatin 40 MG 1 tablet in the evening Daily for 90 days Active metFORMIN HCl 500 MG 1 tablet with food Orally Daily for 90 days Active PROCEDURES No Information RESULTS No Results REASON FOR VISIT Refills MEDICAL (GENERAL) HISTORY Type Description Date Medical History mental retardation Medical History hyperlipidemia Medical History osteoporosis/RIGHT HIP-2008, LOW BONE DENSITY-LEFT HIP started bisphosphonates [place] in 2003 then reclast 2012 Medical History HX. 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 Michaud, repeat 3 years 2019 Goals Section No Information Health Concerns No Information MEDICAL EQUIPMENT No Information MENTAL STATUS No Information FUNCTIONAL STATUS No Information ASSESSMENTS No Information PLAN OF TREATMENT Medication Medication Name Sig Start Date Stop Date Simvastatin 40 MG 1 tablet in the evening Daily for 90 days metFORMIN HCl 500 MG 1 tablet with food Orally Daily for 90 days Lisinopril 5 MG 1 tablet orally Once a day for 90 days Zocor 40 40mg 1 tab(s) oral before bedtime Multivitamin - TAKE ONE TABLET BY MOUTH ONCE DAILY for 30 Albuterol Sulfate HFA 108 (90 Base) MCG/ACT 2 puffs as needed for wheezing Inhalation every 6 hrs for 25 Trazodone HCl 50 MG TAKE ONE TABLET BY MOUTH AT BEDTIME Orally Daily for 90 days Occupational Therapy as directed Mar, Next Appt Details Provider Name:Valentin Cartwright, 2021-04-28 11:30:00 AM, [id number] [phone], [place], [address], Provider Name:Valentin Cartwright, 2021-06-15 10:00:00 AM, [address] [phone], [place], [address], Insurance Providers Payer Name Payer Address Payer Phone Insured Name Patient Relati onship to Insured Coverage Start Date Coverage End Date MEDICAID [employer] [address] [facility] [id number] SANDY BREWER MEDICARE Part A and B [address] [facility] [phone] SANDY BREWER self
--- OUTSIDE RECORDS SUMMARY | 2021-07-13 04:33 | CCD ---
Author Author [facility] Organization [facility] Address Unknown Phone Unavailable Care Team Providers Care Slide Fastener Repairer Name Role Phone Valentin Cartwright Unavailable PROBLEMS Type Condition ICD9-CM Code XII53-PK Code Onset Dates Condition S tatus W/U Status Risk SNOMED Code Notes Problem Senile osteoporosis M81.0 Active confirmed 93531601 Problem Mental retardation F79 Active confirmed 9 9641427 Problem Constipation, unspecified constipation type K59.00 Active confirmed 25036375 Problem Essential hypertension I10 Active confirmed 75990137 Problem Type 2 diabetes mellitus wit hout complication, without long-term current use of insulin E11.9 Active confirmed 534672337 Problem Sinusitis, unspecified chronicity, unspecified location J32.9 Active confirmed 05515588 Problem Pseudobulbar affect F48.2 Active confirmed 694868767 Problem New onset of diabetes mellitus in pediatric patient E11.9 Active confirmed 647613671 Problem Urinary incontinence, unspecified type R32 A ctive confirmed 527988124 Problem Compression fracture of body of thoracic vertebra M48.54XA Active confirmed 583598923 Problem Bronchitis, mucopurulent recurrent J41.1 Activ e confirmed 48822150 Problem Osteoporosis, unspecified os teoporosis type, unspecified pathological fracture presence M81.0 Active confirmed 73843639 Problem Age related osteoporosis, unspecified pathologic al fracture presence M81.0 Active confirmed 632058444 Problem Dyslipidemia E78.5 Active confirmed 7307451 07 ALLERGIES No Known Allergies ENCOUNTERS from 1945 to 2021-06-18 Encounter Location Date Provider Diagnosis [facility] [id number] [place] [address] [place] [address] May, Valentin Cartwright Pseudobulbar affect F48.2 ; Annual physical exam Z00.00 ; Bronchitis, mucopurulent recurrent J41.1 ; Urinary frequency R35.0 ; Breast cancer screening by mammogram Z12.31 ; Cervical cancer screening Z12.4 and Impacted cerumen of both ears H61.23 IMMUNIZATIONS Vaccine Route Administration Date Status COVID-19 dose #2 given elsewhere Unspecified Unknown Oct 15, 2020 Administered COVID-19 dose #1 given elsewhere Unspecified Unknown Aug 26, 2020 Administered Influenza 18 yrs & older Flublok IM Intramuscular Jun 11, 2020 Administered Pneumococcal 0.5mL Prevnar 13 Unknown January 05, 2016 Ad ministered TD PED 0.5mL Tetanus Unknown December 04, 2014 Administere d Influenza 6mo & up Fluzone Unknown Jun 20, 2017 Admin istered Hepatitis B Adult 1.0mL Engerix-B IM Intramuscular October 28 Administered Hepatitis B Adult 1.0mL Engerix-B IM Intramuscular Jun 11, 2020 Administered Hepatitis B Adult 1.0mL Engerix-B IM Intramuscular Apr 29, 2020 Administered SOCIAL HISTORY Tobacco Use: Social History Observation Description Date Details (start date - stop date) Never Smoker Sex Assigned At : Social History Observation Description Sex Assigned At Unknown Language: Question Answer Notes Languages spoken: Eritrean Alcohol Screening: Question Answer Notes Did you have a drink containing alcohol in the past year? No Points 0 Interpretation Negative BMI Care Goal Follow-Up Question Answer Notes Above Normal BMI Follow-Up Giving encouragement to exercise Tobacco Use: Question Answer Notes Are you a: never smoker never smoker REASON FOR REFERRAL from 1945 to 2021-06-18 Reason Please evaluate and treat as needed|Dr. Weaver or raffaele caldwell please Diagnosis 1 Pseudobulbar affect (F48.2) Referral Organization [facility] Rylie Referring Provider First Name Valentin Referring Provider Last Name Gabbie Referring Provider Specialty Family Medicine Referred Provider [facility],Neurology Referred Provider Specialty Neurology Referral Priority Routine General Notes Martha Ortez 06/15/2021 12:43:35 PM > referral sent. VITAL SIGNS Weight 164 lbs May, Weight-kg 74.39 kg May, Height 59 in May, BMI 33.12 kg/m2 May, Heart Rate 59 /min May, Respiratory Rate 18 /min May, Temperature 97.5 degrees Fahrenheit May, Oximetry 99 May, Blood pressure systolic 113 mm Hg May, Blood pressure diastolic 73 mm Hg May, MEDICATIONS Medication SIG (Take, Route, Frequency, Duration) Notes Start Da te End Date Status Simvastatin 40 MG 1 tablet in the evening Daily for 90 days Unknown Trazodone 50 50mg 1 tab orally qhs for 90 day(s) Active predniSONE 20 MG 2 tablet Orally Once a day for 5 day(s) 2 Jan, Unknown Lisinopril 5 MG 1 tablet orally Once a day for 90 days Active metFORMIN HCl 500 MG 1 tablet with food Orally Daily for 90 days Unknown Albuterol Sulfate HFA 108 (90 Base) MCG/ACT 2 puffs as needed for wheezing Inhalation every 6 hrs for 25 Ac tive guaiFENesin 200 MG 2 tablet as needed Orally ev may 4 hrs (MDD 2400mg) for 15 days Feb, Unknown Zocor 40 40mg 1 tab(s) oral before bedtime Active Debrox 6.5 % 5 drops into affected ear Otic once a we ek for 30 day(s) May drop into patient's ears as directed Active May Use - Food allergy: None Diet cons istency: one inch pieces Diet: Meditteranean, heart healty, diabetic, regular liquids May, 2 020 Unknown Multivitamins MULTIVITAMIN 1 tab(s) Orally daily for 90 days Jul, Active Sudafed 30 MG 1 tablet as needed Orally every 6 hrs for 5 day(s) Feb, Unknown Bactrim DS 800-160 MG 1 tablet Orally Twice a day for 3 days Apr, Not-Taking Fleet Enema 7-19 GM/118ML 1 Rectal on day 6 if no bm Unknown Augmentin 875-125 MG 1 tablet Orally every 12 hrs for 10 day(s) Feb, Unknown Tab-A-Yashira - TAKE ONE TABLET BY MOUTH ONCE DAILY for 60 Unknown Timolol Hemihydrate 0.5 % 1 drop into affected eye Ophthalmic Once a day Unknown Mucinex DM 30-600 MG 1 tablet as needed Orally every 12 hrs for 10 day(s) Feb, Unknown Shingrix 50 mcg/0.5 mL As Directed Intramuscular as directed for 2 days Apr, Unknown Occupational Therapy as directed fine motor tasks and ADLsDx: F79 Mar, Unknown Brimonidine Tartrate 0.2 % 1 drop into affected eye Ophthalmic twic e daily Unknown Reclast 5 MG/100ML Intravenous yearly/last given 08/20/13 Unknown Latanoprost 0.005 % 1 drop into affected eye in the evening Ophthalmic Once a day Active metFORMIN HCl 500 MG 1 tablet with a meal Orally Once a day for 30 da y(s) Active Timolol Maleate 10 MG 1 tablet with food Orally Twice a day for 30 da y(s) Active Trazodone HCl 50 MG TAKE ONE TABLET BY MOUTH AT BEDTIME Orally Daily for 90 days Active Medrol 4 MG as directed per dose pack Or ally as directed per dose pack for 6 days Feb, Unknown Calcium + D3 600-200 MG-UNIT 1 tablet with a meal Orally Once a day Active Milk of Magnesia 30 ml on day 3 or 4 if no bm. Active Colace 100 MG 1 capsule Orally bid for 90 days Active PROCEDURES No Information RESULTS No Results REASON FOR VISIT AWV MEDICAL (GENERAL) HISTORY Type Description Date Medical [...] No Information FUNCTIONAL STATUS No Information ASSESSMENTS Encounter Date Diagnosis Assessment Notes Treatment Notes Treatm ent Clinical Notes May, Pseudobulbar affect (ICD-10 - F48.2) Nurse at [facility] has concern for this. Unsure medication used for this. Refer to neurology for further assistance. Has had these laughter outbursts for many years. Do not seem to affect patient. May, Annual physical exam (ICD-10 - Z00.00) Reviewed PMH, medications, allergies, social history, surgeries, hospitalizations. Preventative medicine discussed. Uptodate with vaccines. Has not had covid booster yet. DEXA scan last year noted osteopenia. Repeat in 1-2 years to determine if need to resume treatment. May, Bronchitis, mucopurulent recurrent (ICD-10 - J41 .1) Has history of. Can use nebulizer as needed. Has not needed lately. Monitor for now. May, Urinary frequency (ICD-10 - R35.0) Noted history of. Nurse suspect from behavior. Monitor for now. Recent urine culture negative. May, Breast cancer screening by mammogram (ICD-10 - Z 12.31) Repeat next year. Uptodate at this time. May, Cervical cancer screening (ICD-10 - Z12.4) Likely up todate and discontinue at this time. Can follow up with PHARMACY TECHNOLOGIST as needed. May, Impacted cerumen of both ears (ICD-10 - H61.23) Some cerumen, not impacted, using debrox the other day. Monitor for now. PLAN OF TREATMENT Treatment Notes Assessment Notes Clinical Notes Pseudobulbar affect Nurse at [facility] has con cern for this. Unsure medication used for this. Refer to neurology for further assistance.Has had these laughter outbursts for many years. Do not seem to affect patient. Annual physical exam Reviewed PMH, medic ations, allergies, social history, surgeries, hospitalizations. Preventative medicine discussed. Uptodate with vaccines. Has not had covid booster yet.DEXA scan last year noted osteopenia. Repeat in 1-2 years to determine if need to resume treatment. Bronchitis, mucopurulent recurrent Has h istory of. Can use nebulizer as needed. Has not needed lately. Monitor for now. Urinary frequency Noted history of. Nu rse suspect from behavior. Monitor for now. Recent urine culture negative. Breast cancer screening by mammogram Rep eat next year. Uptodate at this time. Cervical cancer screening Likely up toda te and discontinue at this time. Can follow up with PHARMACY TECHNOLOGIST as needed. Impacted cerumen of both ears Some cerum en, not impacted, using debrox the other day. Monitor for now. Referrals Referral Date Details Please evaluate and treat as needed|Dr. Weaver or raffaele caldwell please, Neurology [facility] Next Appt Details 6 mth Reason: Provider Name:Valentin Cartwright, 2021-12-14 10:00:00 AM, [address] [facility], , [place], [address], Insurance Providers Payer Name Payer Address Payer Phone Insured Name Patient Relati onship to Insured Coverage Start Date Coverage End Date MEDICARE Part A and B [address] [facility] [id number] SANDY BREWER MEDICAID [employer] [address] [facility] [id number] SANDY BREWER self"
--- OUTSIDE RECORDS SUMMARY | 2021-07-13 04:33 | CCD ---
Author Author [facility] Organization [facility] Address Unknown Phone Unavailable Care Team Providers Care Photograph Finisher Name Role Phone Valentin Cartwrihgt Unavailable PROBLEMS Type Condition ICD9-CM Code ZKT68-NJ Code Onset Dates Condition S tatus W/U Status Risk SNOMED Code Notes Problem Compression fracture of body of thoracic vertebra M48.54XA Active confirmed 994743544 Problem New onset of diabetes mellitus in pediatric patient E11.9 Active confirmed 692281056 Problem Type 2 diabetes mellitus wit hout complication, without long-term current use of insulin E11.9 Active confirmed 698283830 Problem Senile osteoporosis M81.0 Active confirmed 19186587 Problem Age related osteoporosis, unspecified pathologic al fracture presence M81.0 Active confirmed 593974573 Problem Mental retardation F79 Active confirmed 9 0985705 Problem Dyslipidemia E78.5 Active confirmed 1404927 07 Problem Constipation, unspecified constipation type K59.00 Active confirmed 70053496 Problem Essential hypertension I10 Active confirmed 42335389 Problem Sinusitis, unspecified chronicity, unspecified location J32.9 Active confirmed 29159906 Problem Bronchitis, mucopurulent recurrent J41.1 Activ e confirmed 71454338 Problem Osteoporosis, unspecified os teoporosis type, unspecified pathological fracture presence M81.0 Active confirmed 48651185 ALLERGIES No Known Allergies ENCOUNTERS from 1945 to 2021-05-07 Encounter Location Date Provider Diagnosis [facility] [address] [phone] [place] [address] 07 Apr, 2021 Valentin Cartwright Essential hypertension I10 ; Exposure to COVID-19 virus Z20.822 and Mental retardation F79 IMMUNIZATIONS Vaccine Route Administration Date Status Influenza [...] Unknown Language: Question Answer Notes Languages spoken: Occitan Alcohol Screening: Question Answer Notes Did you have a drink containing alcohol in the past year? No Points 0 Interpretation Negative BMI Care Goal Follow-Up Question Answer Notes Above Normal BMI Follow-Up Giving encouragement to exercise Tobacco Use: Question Answer Notes Are you a: never smoker never smoker REASON FOR REFERRAL No Information VITAL SIGNS Weight 161 lbs Apr, Weight-kg 73.03 kg Apr, Height 59 in Apr, BMI 32.51 kg/m2 Apr, Heart Rate 67 /min Apr, Respiratory Rate 18 /min Apr, Temperature 97.7 degrees Fahrenheit Apr, Oximetry 99 Apr, Blood pressure systolic 185 mm Hg Apr, Blood pressure diastolic 85 mm Hg Apr, MEDICATIONS Medication SIG (Take, Route, Frequency, Duration) Notes Start Da te End Date Status Reclast 5 MG/100ML Intravenous yearly/last given 08/20/13 Unknown Tab-A-Yashira - TAKE ONE TABLET BY MOUTH ONCE DAILY for 60 Unknown Calcium + D3 600-200 MG-UNIT 1 tablet with a meal Orally Once a day Unknown Occupational Therapy as directed fine motor tasks and ADLsDx: F79 Mar, Unknown Albuterol Sulfate HFA 108 (90 Base) MCG/ACT 2 puffs as needed for wheezing Inhalation every 6 hrs for 25 Un known Trazodone 50 50mg 1 tab orally qhs for 90 day(s) Unknown Trazodone HCl 50 MG TAKE ONE TABLET BY MOUTH AT BEDTIME Orally Daily for 90 days Unknown guaiFENesin 200 MG 2 tablet as needed Orally ev may 4 hrs (MDD 2400mg) for 15 days Feb, Unknown Zocor 40 40mg 1 tab(s) oral before bedtime Unknown Simvastatin 40 MG 1 tablet in the evening Daily for 90 days Unknown Mucinex DM 30-600 MG 1 tablet as needed Orally every 12 hrs for 10 day(s) Feb, Unknown Medrol 4 MG as directed per dose pack Or ally as directed per dose pack for 6 days Feb, Unknown Timolol Hemihydrate 0.5 % 1 drop into affected eye Ophthalmic Once a day Unknown May Use - Food allergy: None Diet cons istency: one inch pieces Diet: Meditteranean, heart healty, diabetic, regular liquids May, 020 Unknown Lisinopril 5 MG 1 tablet orally Once a day for 90 days Unknown Brimonidine Tartrate 0.2 % 1 drop into affected eye Ophthalmic twic e daily Unknown Multivitamins MULTIVITAMIN 1 tab(s) Orally daily for 90 days Jul, Unknown Debrox 6.5 % 5 drops into affected ear Otic once a we ek for 30 day(s) May drop into patient's ears as directed Unknown metFORMIN HCl 500 MG 1 tablet with food Orally Daily for 90 days Unknown Milk of Magnesia 30 ml on day 3 or 4 if no bm. Unknown Colace 100 MG 1 capsule Orally bid for 90 days Unknown Sudafed 30 MG 1 tablet as needed Orally every 6 hrs for 5 day(s) Feb, Unknown predniSONE 20 MG 2 tablet Orally Once a day for 5 day(s) 2 Jan, Unknown Shingrix 50 mcg/0.5 mL As Directed Intramuscular as directed for 2 days Apr, Unknown Fleet Enema 7-19 GM/118ML 1 Rectal on day 6 if no bm Unknown Augmentin 875-125 MG 1 tablet Orally every 12 hrs for 10 day(s) Feb, Unknown Latanoprost 0.005 % 1 drop into affected eye in the evening Ophthalmic Once a day Unknown PROCEDURES No Information RESULTS No Results REASON FOR VISIT 4-6 Month F/U MEDICAL (GENERAL) HISTORY Type Description Date Medical [...] Notes Treatment Notes Treatm ent Clinical Notes Apr, Essential hypertension (ICD-10 - I10) BP not well controlled. Monitor outside office. Call office if not controlled/ concerned. Repeat next visit. Apr, Exposure to COVID-19 virus (ICD-10 - Z20.822) Caregiver at work tested positive Tuesday, 4 days ago. No symptoms at this time. No testing at this time. If symptoms develop, call office/ get tested. Apr, Mental retardation (ICD-10 - F79) Continued care under [facility]. PLAN OF TREATMENT Treatment Notes Assessment Notes Clinical Notes Essential hypertension BP not well contr olled. Monitor outside office. Call office if not controlled/ concerned. Repeat next visit. Exposure to COVID-19 virus Caregiver at work tested positive Tuesday, 4 days ago. No symptoms at this time. No testing at this time. If symptoms develop, call office/ get tested. Mental retardation Continued care under [facility]. Next Appt Details scheduled appt Reason: Provider Name:MariuszGene Cartwright, 2021-06-15 10:00:00 AM, [address] [facility], , [place], [address], Insurance Providers Payer Name Payer Address Payer Phone Insured Name Patient Relati onship to Insured Coverage Start Date Coverage End Date MEDICARE Part A and B [address] [facility] [address] [phone] SANDY BREWER MEDICAID [employer] [address] [facility] [id number] SANDY BREWER self
--- OUTSIDE RECORDS SUMMARY | 2021-07-13 04:33 | CCD ---
Author Author [facility] Organization [facility] Address Unknown Phone Unavailable Care Team Providers Care Cloth Measurer Machine Name Role Phone Valentin Cartwright Unavailable PROBLEMS Type Condition ICD9-CM Code MOG71-LS Code Onset Dates Condition S tatus W/U Status Risk SNOMED Code Notes Problem Compression fracture of body of thoracic vertebra M48.54XA Active confirmed 819824389 Problem New onset of diabetes mellitus in pediatric patient E11.9 Active confirmed 250301701 Problem Type 2 diabetes mellitus wit hout complication, without long-term current use of insulin E11.9 Active confirmed 162129295 Problem Senile osteoporosis M81.0 Active confirmed 03886733 Problem Age related osteoporosis, unspecified pathologic al fracture presence M81.0 Active confirmed 786265328 Problem Mental retardation F79 Active confirmed 9 7905465 Problem Dyslipidemia E78.5 Active confirmed 1878894 07 Problem Constipation, unspecified constipation type K59.00 Active confirmed 07709619 Problem Essential hypertension I10 Active confirmed 34634004 Problem Sinusitis, unspecified chronicity, unspecified location J32.9 Active confirmed 74941672 Problem Bronchitis, mucopurulent recurrent J41.1 Activ e confirmed 16985691 Problem Osteoporosis, unspecified os teoporosis type, unspecified pathological fracture presence M81.0 Active confirmed 58357324 ALLERGIES No Known Allergies ENCOUNTERS from 1945 to 2021-05-08 Encounter Location Date Provider Diagnosis [facility] [address] [phone] [place] [address] 16 Apr, 2021 Valentin Cartwright Urinary frequency R35.0 IMMUNIZATIONS Vaccine Route Administration Date Status Influenza [...] Unknown Language: Question Answer Notes Languages spoken: Malay Alcohol Screening: Question Answer Notes Did you [...] Information RESULTS No Results REASON FOR VISIT UA Order MEDICAL (GENERAL) HISTORY Type Description Date Medical [...] Treatment Notes Treatm ent Clinical Notes Apr, Urinary frequency (ICD-10 - R35.0) PLAN OF TREATMENT Treatment Notes Test Name Order Date URINE CULTURE 2021-05-07 [facility] URINALYSIS 2021-05-07 Next Appt Details Provider Name:Valentin Cartwright, 2021-06-15 10:00:00 AM, [address] [facility], , [place], [address], Insurance Providers Payer Name Payer Address Payer Phone Insured Name Patient Relati onship to Insured Coverage Start Date Coverage End Date MEDICARE Part A and B [address] [facility] [id number] JONATHAN BREWERIA self MEDICAID [employer] [address] [facility] [id number] OSMAN,SANDY self
--- OUTSIDE RECORDS SUMMARY | 2021-07-13 04:33 | CCD ---
Author Author [facility] Organization [facility] Address Unknown Phone Unavailable Care Team Providers Care Corporate Quality Engineer Name Role Phone Gabbie Valentin Unavailable PROBLEMS Type Condition ICD9-CM Code LXV72-BL Code Onset Dates Condition S tatus W/U Status Risk SNOMED Code Notes Problem Constipation, unspecified constipation type K59.00 Active confirmed 18586343 Problem Senile osteoporosis M81.0 Active confirmed 88327050 Problem New onset of diabetes mellitus in pediatric patient E11.9 Active confirmed 879840890 Problem Type 2 diabetes mellitus wit hout complication, without long-term current use of insulin E11.9 Active confirmed 130526743 Problem Essential hypertension I10 Active confirmed 81955773 Problem Dyslipidemia E78.5 Active confirmed 7131587 07 Problem Compression fracture of body of thoracic vertebra M48.54XA Active confirmed 424173973 Problem Urinary incontinence, unspecified type R32 A ctive confirmed 462789110 Problem Mental retardation F79 Active confirmed 9 7064769 Problem Sinusitis, unspecified chronicity, unspecified location J32.9 Active confirmed 63324173 Problem Bronchitis, mucopurulent recurrent J41.1 Activ e confirmed 15583997 Problem Osteoporosis, unspecified os teoporosis type, unspecified pathological fracture presence M81.0 Active confirmed 73945297 Problem Age related osteoporosis, unspecified pathologic al fracture presence M81.0 Active confirmed 359704127 ALLERGIES No Known Allergies ENCOUNTERS from 1945 to 2021-06-04 Encounter Location Date Provider Diagnosis [facility] [address] [facility] [phone] [place] [address] May, Valentin Cartwright IMMUNIZATIONS Vaccine Route Administration Date [...] Unknown Language: Question Answer Notes Languages spoken: Ukrainian Alcohol Screening: Question Answer Notes Did you [...] Notes Start Da te End Date Status Colace 100 MG 1 capsule Orally bid for 90 days Unknown Occupational Therapy as directed fine motor tasks and ADLsDx: F79 Mar, Unknown May Use - Food allergy: None Diet cons istency: one inch pieces Diet: Meditteranean, heart healty, diabetic, regular liquids May, 020 Unknown metFORMIN HCl 500 MG 1 tablet with food Orally Daily for 90 days Unknown Reclast 5 MG/100ML Intravenous yearly/last given 08/20/13 Unknown guaiFENesin 200 MG 2 tablet as needed Orally ev may 4 hrs (MDD 2400mg) for 15 days Feb, Unknown Calcium + D3 600-200 MG-UNIT 1 tablet with a meal Orally Once a day Unknown Tab-A-Yashira - TAKE ONE TABLET BY MOUTH ONCE DAILY for 60 Unknown Simvastatin 40 MG 1 tablet in the evening Daily for 90 days Unknown Albuterol Sulfate HFA 108 (90 Base) MCG/ACT 2 puffs as needed for wheezing Inhalation every 6 hrs for 25 Un known Trazodone 50 50mg 1 tab orally qhs for 90 day(s) Unknown Sudafed 30 MG 1 tablet as needed Orally every 6 hrs for 5 day(s) Feb, Unknown Brimonidine Tartrate 0.2 % 1 drop into affected eye Ophthalmic twic e daily Unknown predniSONE 20 MG 2 tablet Orally Once a day for 5 day(s) 2 Jan, Unknown Mucinex DM 30-600 MG 1 tablet as needed Orally every 12 hrs for 10 day(s) Feb, Unknown Debrox 6.5 % 5 drops into affected ear Otic once a we ek for 30 day(s) May drop into patient's ears as directed Unknown Milk of Magnesia 30 ml on day 3 or 4 if no bm. Unknown Medrol 4 MG as directed per dose pack Or ally as directed per dose pack for 6 days Feb, Unknown Zocor 40 40mg 1 tab(s) oral before bedtime Unknown Lisinopril 5 MG 1 tablet orally Once a day for 90 days Unknown Timolol Hemihydrate 0.5 % 1 drop into affected eye Ophthalmic Once a day Unknown Multivitamins MULTIVITAMIN 1 tab(s) Orally daily for 90 days Jul, Unknown Trazodone HCl 50 MG TAKE ONE TABLET BY MOUTH AT BEDTIME Orally Daily for 90 days Active Fleet Enema 7-19 GM/118ML 1 Rectal on day 6 if no bm Unknown Augmentin 875-125 MG 1 tablet Orally every 12 hrs for 10 day(s) Feb, Unknown Shingrix 50 mcg/0.5 mL As Directed Intramuscular as directed for 2 days Apr, Unknown Latanoprost 0.005 % 1 drop into affected eye in the evening Ophthalmic Once a day Unknown Bactrim DS 800-160 MG 1 tablet Orally Twice a day for 3 days Apr, Active PROCEDURES No Information RESULTS No Results REASON FOR VISIT Trazodone Refill MEDICAL (GENERAL) HISTORY Type Description Date Medical [...] Medication Name Sig Start Date Stop Date Trazodone HCl 50 MG TAKE ONE TABLET BY MOUTH AT BEDTIME Orally Daily for 90 days Bactrim DS 800-160 MG 1 tablet Orally Twice a day for 3 days Apr, Next Appt Details Provider Name:Valentin Cartwright, 2021-06-15 10:00:00 AM, [address] [facility], , [place], [address], Insurance Providers Payer Name Payer Address Payer Phone Insured Name Patient Relati onship to Insured Coverage Start Date Coverage End Date MEDICAID [employer] [address] [facility] [address] SANDY BREWER MEDICARE Part A and B [address] [facility] [id number] SANDY BREWER self
--- OUTSIDE RECORDS SUMMARY | 2021-07-13 04:33 | CCD ---
Author Author [facility] Organization [facility] Address Unknown Phone Unavailable Care Team Providers Care Box Office Clerk Name Role Phone Valentin Cartwright Unavailable PROBLEMS Type Condition ICD9-CM Code BIQ79-OR Code Onset Dates Condition S tatus W/U Status Risk SNOMED Code Notes Problem Senile osteoporosis M81.0 Active confirmed 64995530 Problem Mental retardation F79 Active confirmed 9 2479311 Problem Constipation, unspecified constipation type K59.00 Active confirmed 36374494 Problem Essential hypertension I10 Active confirmed 61072908 Problem Type 2 diabetes mellitus wit hout complication, without long-term current use of insulin E11.9 Active confirmed 775690301 Problem Sinusitis, unspecified chronicity, unspecified location J32.9 Active confirmed 95908666 Problem Pseudobulbar affect 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 Active confirmed 937734643 Problem New onset of diabetes mellitus in pediatric patient E11.9 Active confirmed 730717567 Problem Urinary incontinence, unspecified type R32 A ctive confirmed 318010248 Problem Compression fracture of body of thoracic vertebra M48.54XA Active confirmed 151192015 Problem Bronchitis, mucopurulent recurrent J41.1 Activ e confirmed 15771379 Problem Osteoporosis, unspecified os teoporosis type, unspecified pathological fracture presence M81.0 Active confirmed 30758233 Problem Age related osteoporosis, unspecified pathologic al fracture presence M81.0 Active confirmed 550617726 Problem Dyslipidemia E78.5 Active confirmed 8509347 07 ALLERGIES No Known Allergies ENCOUNTERS from 1945 to 2021-06-18 Encounter Location Date Provider Diagnosis [address] [phone] [place] [address] May, Valentin [place] IMMUNIZATIONS Vaccine Route Administration Date Status COVID-19 [...] Unknown Language: Question Answer Notes Languages spoken: Mongolian Alcohol Screening: Question Answer Notes Did you [...] Information RESULTS No Results REASON FOR VISIT referral, question? MEDICAL (GENERAL) HISTORY Type Description Date Medical [...] Information ASSESSMENTS No Information PLAN OF TREATMENT Next Appt Details Provider Name:Valentin Cartwright, 2021-12-14 10:00:00 AM, [address] [facility], , [place], [address], Insurance Providers Payer Name Payer Address Payer Phone Insured Name Patient Relati onship to Insured Coverage Start Date Coverage End Date MEDICARE Part A and B [address] [facility] [id number] [phone] SANDY BREWER self MEDICAID [employer] [address] [facility] [id number] SANDY BREWER self
--- OUTSIDE RECORDS SUMMARY | 2021-07-13 04:33 | CCD | Continuity of Care Document ---
Author Author Carmen WHEELER M.D. Organization Unknown Address [address] [place] [address] Phone [phone] Care Team Providers Care Hospital Nurse Liaison Name Role Phone Valentin Cartwright M.D. AUTM [phone] Problems Active Problems Provider Date Delayed milestone Robert Wheeler M.D. Onset: 06/17/2021 Abnormal gait Robert Wheeler M.D. Onset: 06/17/2021 Pseudobulbar affect Robert Wheeler M.D. Onset: 06/17/2021 Social History Type Date Description Comments Sex Unknown Tobacco Use Start: Unknown Patient has never smoked Allergies and adverse reactions Description No Known Drug Allergies Medications Active Medications SIG Qnty Indications Ordering Provide r Date Nuedexta 20-10mg Capsules 1 by mouth bid. 60caps Robert Wheeler M.D. 06/17/2021 Immunizations Description No Information Available Vital Signs Date Vital Result Comment 06/17/2021 12:15pm BP Systolic 115 mmHg BP Diastolic 70 mmHg Heart Rate 70 /min Respiratory Rate 14 /min Height 60 inches 5'0" Weight 162.00 lb BMI (Body Mass Index) 31.6 kg/m2 [place] Body Weight 100 lb Results Description No Information Available Procedures Date Code Description Status 06/17/2021 80850 Office/Outpatient New Low MDM 30 -44 Minutes Completed Medical Devices Description No Information Available Encounters Type Date Location Provider Dx Diagnosis Office Visit 06/17/2021 11:45a Main office - [place] Kika Hinojosa F48.2 Pseudobulbar affect R62.0 Delayed milestone in childho od R26.81 Unsteadiness on feet Assessments Date Code Description Provider 06/17/2021 F48.2 Pseudobulbar affect Robert Wheeler M.D. 06/17/2021 R62.0 Delayed milestone in childhood Maxim Wheeler M.D. 06/17/2021 R26.81 Unsteadiness on feet Robert Wheeler M.D. Plan of Treatment Future Appointment(s):* 08/04/2021 2:00 pm - Michell Humphreys P.A.-C. at Main office - [place] Functional Status Description No Information Available Mental Status Description No Information Available Referrals Description No Information Available
--- OUTSIDE RECORDS SUMMARY | 2021-07-13 04:33 | CCD ---
Author Author [facility] Organization [facility] Address Unknown Phone Unavailable Care Team Providers Care Tracer Bullet Section Supervisor Name Role Phone Valentin Cartwright Unavailable PROBLEMS Type Condition ICD9-CM Code EHH99-SV Code Onset Dates Condition S tatus W/U Status Risk SNOMED Code Notes Problem Compression fracture of body of thoracic vertebra M48.54XA Active confirmed 799030402 Problem New onset of diabetes mellitus in pediatric patient E11.9 Active confirmed 702580099 Problem Type 2 diabetes mellitus wit hout complication, without long-term current use of insulin E11.9 Active confirmed 933578003 Problem Senile osteoporosis M81.0 Active confirmed 86915916 Problem Age related osteoporosis, unspecified pathologic al fracture presence M81.0 Active confirmed 174050975 Problem Mental retardation F79 Active confirmed 9 0190441 Problem Dyslipidemia E78.5 Active confirmed 5411503 07 Problem Constipation, unspecified constipation type K59.00 Active confirmed 23421654 Problem Essential hypertension I10 Active confirmed 21785409 Problem Sinusitis, unspecified chronicity, unspecified location J32.9 Active confirmed 52474248 Problem Bronchitis, mucopurulent recurrent J41.1 Activ e confirmed 55783958 Problem Osteoporosis, unspecified os teoporosis type, unspecified pathological fracture presence M81.0 Active confirmed 08309268 ALLERGIES No Known Allergies ENCOUNTERS from 1945 to 2021-05-11 Encounter Location Date Provider Diagnosis [facility] [address] [phone] [place] [address] Apr, Valentin Cartwright Urinary tract infection with out hematuria, site unspecified N39.0 IMMUNIZATIONS Vaccine Route Administration Date Status Influenza [...] Unknown Language: Question Answer Notes Languages spoken: Hong Konger Alcohol Screening: Question Answer Notes Did you [...] Notes Start Da te End Date Status Calcium + D3 600-200 MG-UNIT 1 tablet with a meal Orally Once a day Unknown Occupational Therapy as directed fine motor tasks and ADLsDx: F79 Mar, Unknown Colace 100 MG 1 capsule Orally bid for 90 days Unknown metFORMIN HCl 500 MG 1 tablet with food Orally Daily for 90 days Unknown Trazodone HCl 50 MG TAKE ONE TABLET BY MOUTH AT BEDTIME Orally Daily for 90 days Unknown guaiFENesin 200 MG 2 tablet as needed Orally ev mya 4 hrs (MDD 2400mg) for 15 days Feb, Unknown Reclast 5 MG/100ML Intravenous yearly/last given [...] tab orally qhs for 90 day(s) Unknown Medrol 4 MG as directed per dose pack Or ally as directed per dose pack for 6 days Feb, Unknown Sudafed 30 MG 1 tablet as needed Orally every 6 hrs for 5 day(s) Feb, Unknown predniSONE 20 MG 2 tablet Orally Once a day for 5 day(s) 2 8 Jan, 2019 Unknown Multivitamins MULTIVITAMIN 1 tab(s) Orally daily for 90 days Jul, Unknown Debrox 6.5 % 5 drops into affected ear Otic once a we ek for 30 day(s) May drop into patient's ears as directed Unknown Milk of Magnesia 30 ml on day 3 or 4 if no bm. Unknown Mucinex DM 30-600 MG 1 tablet as needed Orally every 12 hrs for 10 day(s) Feb, Unknown Zocor 40 40mg 1 tab(s) oral before bedtime Unknown Lisinopril 5 MG 1 tablet orally Once a day for 90 days Unknown Timolol Hemihydrate 0.5 % 1 drop into affected eye Ophthalmic Once a day Unknown May Use - Food allergy: None Diet cons istency: one inch pieces Diet: Meditteranean, heart healty, diabetic, regular liquids May, 2 020 Unknown Brimonidine Tartrate 0.2 % 1 drop into affected eye Ophthalmic twic e daily Unknown Fleet Enema 7-19 GM/118ML 1 Rectal [...] Information RESULTS No Results REASON FOR VISIT UTI MEDICAL (GENERAL) HISTORY Type Description Date Medical [...] Surgical History colonscopy Dr. Michaud, repeat 3 2019 Goals Section No Information Health Concerns No Information MEDICAL EQUIPMENT No Information MENTAL STATUS No Information FUNCTIONAL STATUS No Information ASSESSMENTS Encounter Date Diagnosis Assessment Notes Treatment Notes Treatm ent Clinical Notes Apr, Urinary tract infection with out hematuria, site unspecified (ICD-10 - N39.0) PLAN OF TREATMENT Medication Medication Name Sig Start Date Stop Date Bactrim DS 800-160 MG 1 tablet Orally Twice a day for 3 days Apr, Next Appt Details Provider Name:Mariusz Cartwright, 2021-06-15 10:00:00 AM, [address] [facility], , [place], [address], Insurance Providers Payer Name Payer Address Payer Phone Insured Name Patient Relati onship to Insured Coverage Start Date Coverage End Date MEDICAID L-3 [employer] [address] [facility] [id number] [phone] SANDY BREWER MEDICARE Part A and B [address] [facility] [address] [phone] SANDY BREWER self
--- OUTSIDE RECORDS SUMMARY | 2021-07-13 04:33 | CCD ---
Author Author [facility] Organization [facility] Address Unknown Phone Unavailable Care Team Providers Care Library Circulation Technician Name Role Phone Valentin Cartwright Unavailable PROBLEMS Type Condition ICD9-CM Code GXV75-LQ Code Onset Dates Condition S tatus W/U Status Risk SNOMED Code Notes Problem Constipation, unspecified constipation type K59.00 Active confirmed 30732622 Problem Senile osteoporosis M81.0 Active confirmed 67826282 Problem New onset of diabetes mellitus in pediatric patient E11.9 Active confirmed 526803547 Problem Type 2 diabetes mellitus wit hout complication, without long-term current use of insulin E11.9 Active confirmed 140133851 Problem Essential hypertension I10 Active confirmed 93895017 Problem Dyslipidemia E78.5 Active confirmed 1095882 07 Problem Compression fracture of body of thoracic vertebra M48.54XA Active confirmed 172966266 Problem Urinary incontinence, unspecified type R32 A ctive confirmed 140546312 Problem Mental retardation F79 Active confirmed 9 0157705 Problem Sinusitis, unspecified chronicity, unspecified location J32.9 Active confirmed 45274212 Problem Bronchitis, mucopurulent recurrent J41.1 Activ e confirmed 81771038 Problem Osteoporosis, unspecified os teoporosis type, unspecified pathological fracture presence M81.0 Active confirmed 51533273 Problem Age related osteoporosis, unspecified pathologic al fracture presence M81.0 Active confirmed 246978590 ALLERGIES No Known Allergies ENCOUNTERS from 1945 to 2021-05-15 Encounter Location Date Provider Diagnosis [facility] [address] [facility] [phone] [place] [address] Apr, Valentin Cartwright Urinary incontinence, unspec ified type R32 IMMUNIZATIONS Vaccine Route Administration Date Status Influenza [...] Unknown Language: Question Answer Notes Languages spoken: Beninese Alcohol Screening: Question Answer Notes Did you [...] day for 5 day(s) 2 Jan, Unknown Multivitamins MULTIVITAMIN 1 tab(s) Orally daily [...] Information RESULTS No Results REASON FOR VISIT another MEDICAL (GENERAL) HISTORY Type Description Date Medical [...] Notes Treatm ent Clinical Notes Apr, Urinary incontinence, unspecified type (ICD-10 - R32) PLAN OF TREATMENT Medication Medication Name Sig Start Date Stop Date Bactrim DS 800-160 MG 1 tablet Orally Twice a day for 3 days Apr, Treatment Notes Test Name Order Date UA URINALYSIS 2021-05-15 URINE CULTURE 2021-05-15 Next Appt Details Provider Name:Valentin Mills Cartwright, 2021-06-15 10:00:00 AM, [address] [facility], , [place], [address], Insurance Providers Payer Name Payer Address Payer Phone Insured Name Patient Relati onship to Insured Coverage Start Date Coverage End Date MEDICARE Part A and B [address] [facility] [phone] SANDY BREWER self MEDICAID [employer] [address] [facility] [address] SANDY BREWER self
--- OUTSIDE RECORDS SUMMARY | 2021-07-13 04:33 | CCD | Continuity of Care Document ---
Author Author Carmen GHOSH DPM Organization Unknown Address [address] [place] [address], [address] [place] [address] Phone [phone] Care Team Providers Care Rn Discharge Name Role Phone Sylvie Lorenz MD AUTM [phone] Problems Active Problems Provider Date Onychomycosis Dennis Ghosh DPM Onset: 06/21/2017 Type 2 diabetes mellitus Dennis Ghosh DPM Onset: 017 Social History Type Date Description Comments Sex Unknown ETOH Use Never used alcohol Tobacco Use Start: Unknown Patient has never smoked Allergies and adverse reactions Description No Known Drug Allergies Medications Active Medications SIG Qnty Indications Ordering Provide r Date Fluzone High-Dose 0.5ml Kristen Administer as Directed Unknown Brimonidine Tartrate 0.2% Solution Unknown Lisinopril 5mg Tablets MD Homer, Jaiden Timolol Maleate 0.5% Solution Unknown Latanoprost 0.005% Solution Unknown Trazodone HCL 50mg Tablets MD Homer, Jaiden Metformin HCL 500mg Tablets MD Homer, Jaiden Simvastatin 40mg Tablets MD Homer, Jaiden Ventolin HFA 108(90Base) mcg/Act A erosol Mari Murray [employer] Prednisone 10mg Tablets Mari Murray [employer] Immunizations Description No Information Available Vital Signs Date Vital Result Comment 06/20/2017 10:01am Height 59 inches 4'11" Weight 169.00 lb BP Systolic 141 mmHg BP Diastolic 80 mmHg Heart Rate 59 /min BMI (Body Mass Index) 34.1 kg/m2 Results Description No Information Available Procedures Date Code Description Status 05/14/2021 67338 Debridement 6-10 Nails Electric Completed 03/05/2021 32668 Office/Outpatient Established SF MDM 10-19 Min Completed 12/25/2020 20380 Office/Outpatient Established SF MDM 10-19 Min Completed Medical Devices Description No Information Available Encounters Type Date Location Provider Dx Diagnosis Office Visit 03/05/2021 1:30p [place] [facility] Dennis Ghosh DPM B35.1 Tinea unguium E11.9 Type 2 diabetes mellitus wit hout complications Office Visit 12/25/2020 1:30p [place] [facility] Dennis Ghosh DPM B35.1 Tinea unguium E11.9 Type 2 diabetes mellitus wit hout complications Assessments Date Code Description Provider 05/14/2021 B35.1 Tinea unguium Dennis Ghosh DPM 05/14/2021 L60.0 Ingrowing nail Dennis Ghosh DPM 05/14/2021 M79.676 Pain in unspecified toe(s) Rosendo Ghosh DPM 05/14/2021 E11.9 Type 2 diabetes mellitus without complications Dennis Ghosh DPM 03/05/2021 B35.1 Tinea unguium Dennis Ghosh DPM 03/05/2021 E11.9 Type 2 diabetes mellitus without complications Dennis Ghosh DPM 12/25/2020 B35.1 Tinea unguium Dennis Ghosh DPM 12/25/2020 E11.9 Type 2 diabetes mellitus without complications Dennis Ghosh DPM Plan of Treatment Future Appointment(s):* 07/23/2021 11:00 am - Dennis Ghosh DPM at [facility] Functional Status Description No Information Available Mental Status Description No Information Available Referrals Description No Information Available
--- OUTSIDE RECORDS SUMMARY | 2021-07-13 04:33 | CCD | Continuity of Care Document ---
Author Author Carmen WHEELER M.D. Organization Unknown Address [address] [place] [address] Phone [phone] Care Team Providers Care Aprn Name Role Phone Valentin Cartwright M.D. AUTM [phone] Problems Active Problems Provider Date Delayed milestone [...] lb BMI (Body Mass Index) 31.6 kg/m2 [place] Body Weight 100 lb Results Description No Information Available Procedures Date Code Description Status 06/17/2021 74071 Office/Outpatient New Low MDM 30 -44 Minutes Completed Medical Devices Description No Information Available Encounters Type Date Location Provider Dx Diagnosis Office Visit 06/17/2021 11:45a Main office - [place] Kika Hinojosa F48.2 Pseudobulbar affect R62.0 Delayed milestone in childho od R26.81 Unsteadiness on feet Assessments Date Code Description Provider 06/17/2021 F48.2 Pseudobulbar affect Robert Wheeler M.D. 06/17/2021 R62.0 Delayed milestone in childhood Maxim Wheeler M.D. 06/17/2021 R26.81 Unsteadiness on feet Robert Wheeler M.D. Plan of Treatment No Information Available Functional Status Description No Information Available Mental Status Description No Information Available Referrals Description No Information Available
--- OUTSIDE RECORDS SUMMARY | 2021-07-13 04:34 | CCD ---
Author Author [facility] Organization [facility] Address Unknown Phone Unavailable Care Team Providers Care Nut Sorter Operator Name Role Phone Umesh Solorzano MD Unavailable Unavailable Umesh Solorzano MD Unavailable Unavailable Umesh Solorzano MD Unavailable Unavailable Umesh Solorzano MD Unavailable Unavailable Umesh Solorzano MD Unavailable Unavailable Umesh Solorzano MD Unavailable Unavailable Umesh Solorzano MD Unavailable Unavailable Umesh Solorzano MD Unavailable Unavailable Umesh Solorzano MD Unavailable Unavailable Umesh Solorzano MD Unavailable Unavailable Umesh Solorzano MD Unavailable Unavailable Umesh Solorzano MD Unavailable Unavailable Umesh Solorzano MD Unavailable Unavailable Umesh Solorzano MD Unavailable Unavailable Umesh Solorzano MD Unavailable Unavailable Umesh Solorzano MD Unavailable Unavailable Umesh Solorzano MD Unavailable Unavailable Umesh Solorzano MD Unavailable Unavailable Umesh Solorzano MD Unavailable Unavailable Umesh Solorzano MD Unavailable Unavailable Umesh Solorzano MD Unavailable Unavailable Umesh Solorzano MD Unavailable Unavailable Umesh Solorzano MD Unavailable Unavailable Umesh Solorzano MD Unavailable Unavailable Umesh Solorzano MD Unavailable Unavailable Umesh Solorzano MD Unavailable Unavailable Umesh Solorzano MD Unavailable Unavailable Umesh Solorzano MD Unavailable Unavailable Umesh Solorzano MD Unavailable Unavailable Umesh Solorzano MD Unavailable Unavailable Umesh Solorzano MD Unavailable Unavailable Umesh Solorzano MD Unavailable Unavailable Umesh Solorzano MD Unavailable Unavailable Umesh Solorzano MD Unavailable Unavailable Umesh Solorzano MD Unavailable Unavailable Umesh Solorzano MD Unavailable Unavailable Umesh Solorzano MD Unavailable Unavailable Umesh Solorzano MD Unavailable Unavailable Umesh Solorzano MD Unavailable Unavailable Umesh Solorzano MD Unavailable Unavailable Umesh Solorzano MD Unavailable Unavailable Umesh Solorzano MD Unavailable Unavailable Umesh Solorzano MD Unavailable Unavailable Umesh Solorzano MD Unavailable Unavailable Umesh Solorzano MD Unavailable Unavailable Umesh Solorzano MD Unavailable Unavailable Umesh Solorzano MD Unavailable Unavailable Umesh Solorzano MD Unavailable Unavailable Umesh Solorzano MD Unavailable Unavailable Umesh Solorzano MD Unavailable Unavailable Umesh Solorzano MD Unavailable Unavailable Umesh Solorzano MD Unavailable Unavailable Umesh Solorzano MD Unavailable Unavailable Umesh Solorzano MD Unavailable Unavailable Umesh Solorzano MD Unavailable Unavailable Umesh Solorzano MD Unavailable Unavailable Umesh Solorzano MD Unavailable Unavailable Umesh Solorzano MD Unavailable Unavailable Umesh Solorzano MD Unavailable Unavailable Umesh Solorzano MD Unavailable Unavailable Umesh Solorzano MD Unavailable Unavailable Umesh Solorzano MD Unavailable Unavailable Umesh Solorzano MD Unavailable Unavailable Umesh Solorzano MD Unavailable Unavailable Umesh Solorzano MD Unavailable Unavailable Umesh Solorzano MD Unavailable Unavailable Umesh Solorzano MD Unavailable Unavailable Umesh Solorzano MD Unavailable Unavailable Umesh Solorzano MD Unavailable Unavailable Umesh Solorzano MD Unavailable Unavailable Umesh Solorzano MD Unavailable Unavailable Umesh Solorzano MD Unavailable Unavailable Umesh Solorzano MD Unavailable Unavailable Umesh Solorzano MD Unavailable Unavailable Umesh Solorzano MD Unavailable Unavailable Umesh Solorzano MD Unavailable Unavailable Umesh Solorzano MD Unavailable Unavailable Umesh Solorzano MD Unavailable Unavailable Umesh Solorzano MD Unavailable Unavailable Umesh Solorzano MD Unavailable Unavailable Umesh Solorzano MD Unavailable Unavailable Umesh Solorzano MD Unavailable Unavailable Umesh Solorzano MD Unavailable Unavailable Umesh Solorzano MD Unavailable Unavailable Umesh Solorzano MD Unavailable Unavailable Umesh Solorzano MD Unavailable Unavailable Umesh Solorzano MD Unavailable Unavailable Umesh Solorzano MD Unavailable Unavailable Umesh Solorzano MD Unavailable Unavailable Umesh Solorzano MD Unavailable Unavailable Umesh Solorzano MD Unavailable Unavailable Umesh Solorzano MD Unavailable Unavailable Umseh Solorzano MD Unavailable Unavailable Ali, Robert MD Unavailable Unavailable Ali, Robert MAXWELL Unavailable Unavailable Ali, Robert MD Unavailable Unavailable Ali, Robert MD Unavailable Unavailable Ali, Robert Unavailable Unavailable Ali, Robert Unavailable Unavailable Ali, Robert Unavailable Unavailable Ali, Robert MD Unavailable Unavailable Ali, Robert MD Unavailable Unavailable Ali, Robert MD Unavailable Unavailable Ali, Robert MD Unavailable Unavailable Ali, Robert MD Unavailable Unavailable Ali, Robert MD Unavailable Unavailable Ali, Robert MD Unavailable Unavailable Ali, Robert MD Unavailable Unavailable Ali, Robert MD Unavailable Unavailable Ali, Robert MD Unavailable Unavailable Ali, Robert MD Unavailable Unavailable Ali, Robert MD Unavailable Unavailable Ali, Robert MD Unavailable Unavailable Ali, Robert MD Unavailable Unavailable Ali, Robert MD Unavailable Unavailable Ali, Robert MD Unavailable Unavailable Ali, Robert MD Unavailable Unavailable Ali, Robert MD Unavailable Unavailable Ali, Robert MD Unavailable Unavailable Ali, Robert Unavailable Unavailable Ali, Robert MAXWELL Unavailable Unavailable Ali, Robert MAXWELL Unavailable Unavailable Ali, Robert MD Unavailable Unavailable Ali, Robert MD Unavailable Unavailable Ali, Robert MD Unavailable Unavailable Ali, Robert MD Unavailable Unavailable Ali, Robert MAXWELL Unavailable Unavailable Ali, Robert Unavailable Unavailable Ali, Robert MAXWELL Unavailable Unavailable Ali, Robert MAXWELL Unavailable Unavailable Ali, Robert MAXWELL Unavailable Unavailable Ali, Robert MAXWELL Unavailable Unavailable Ali, Robert MAXWELL Unavailable Unavailable Ali, Robert Unavailable Unavailable Ali, Robert Unavailable Unavailable Ali, Robert MAXWELL Unavailable Unavailable Ali, Robert MAXWELL Unavailable Unavailable Ali, Robert MAXWELL Unavailable Unavailable Ali, Robert MAXWELL Unavailable Unavailable Ali, Robert MAXWELL Unavailable Unavailable Ali, Robert MAXWELL Unavailable Unavailable Ali, Robert MAXWELL Unavailable Unavailable Ali, Robert MAXWELL Unavailable Unavailable Ali, Robert MAXWELL Unavailable Unavailable Ali, Robert MAXWELL Unavailable Unavailable MAJAK, R MINISTERIO DPM Unavailable Unavailable MAJAK, R MINISTERIO DPM Unavailable Unavailable MAJAK, R MINISTERIO DPM Unavailable Unavailable MAJAK, R MINISTERIO DPM Unavailable Unavailable MAJAK, R MINISTERIO DPM Unavailable Unavailable MAJAK, R MINISTERIO DPM Unavailable Unavailable MAJAK, R MINITSERIO DPM Unavailable Unavailable MAJAK, R MINISTERIO DPM Unavailable Unavailable MAJAK, R MINISTERIO DPM Unavailable Unavailable MAJAK, R MINISTERIO DPM Unavailable Unavailable MAJAK, R MINISTERIO DPM Unavailable Unavailable MAJAK, R MINISTERIO DPM Unavailable Unavailable MAJAK, R MINISTERIO DPM Unavailable Unavailable MAJAK, R MINISTERIO DPM Unavailable Unavailable MAJAK, R MINISTERIO DPM Unavailable Unavailable MAJAK, R MINISTERIO DPM Unavailable Unavailable MAJAK, R MINISTERIO DPM Unavailable Unavailable MAJAK, R MINISTERIO DPM Unavailable Unavailable MAJAK, R MINISTERIO DPM Unavailable Unavailable MAJAK, R MINISTERIO DPM Unavailable Unavailable MAJAK, R MINISTERIO DPM Unavailable Unavailable MAJAK, R MINISTERIO DPM Unavailable Unavailable MAJAK, R MINISTERIO DPM Unavailable Unavailable MAJAK, R MINISTERIO DPM Unavailable Unavailable MAJAK, R MINISTERIO DPM Unavailable Unavailable MAJAK, R MINISTERIO DPM Unavailable Unavailable MAJAK, R MINISTERIO DPM Unavailable Unavailable MAJAK, R MINISTERIO DPM Unavailable Unavailable MAJAK, R MINISTERIO DPM Unavailable Unavailable MAJAK, R MINISTERIO DPM Unavailable Unavailable MAJAK, R MINISTERIO DPM Unavailable Unavailable MAJAK, R MINISTERIO DPM Unavailable Unavailable Dille, E Jacque DDS Unavailable Unavailable Dille, E Jacque DDS Unavailable Unavailable Dille, E Jacque DDS Unavailable Unavailable Dille, E Jacque DDS Unavailable Unavailable Re-disclosure Warning The records that you are about to access may contain information from federally-assisted alcohol or drug abuse programs. If such information is present, then the following federally mandated warning applies: This information has been disclosed to you from records protected by federal confidentiality rules (42 CFR part 2). The federal rules prohibit you from making any further disclosure of this information unless further disclosure is expressly permitted by the written consent of the person to whom it pertains or as otherwise permitted by 42 CFR part 2. A general authorization for the release of medical or other information is NOT sufficient for this purpose. The Federal rules restrict any use of the information to criminally investigate or prosecute any alcohol or drug abuse patient.The records that you are about to access may contain highly sensitive health information, the redisclosure of which is protected by Article 27-F of the [facility] Public Health law. If you continue you may have access to information: Regarding HIV / AIDS; Provided by facilities licensed or operated by the [facility] Office of Mental Health; or Provided by the [facility] Office for People With Developmental Disabilities. If such information is present, then the following [facility] mandated warning applies: This information has been disclosed to you from confidential records which are protected by state law. State law prohibits you from making any further disclosure of this information without the specific written consent of the person to whom it pertains, or as otherwise permitted by law. Any unauthorized further disclosure in violation of state law may result in a fine or detention sentence or both. A general authorization for the release of medical or other information is NOT sufficient authorization for further disc losure. Allergies and Adverse Reactions Type Description Substance Reaction Status Data Source(s ) Allergy to substance Allergy to substance Allergy to substance [facility] ([facility]) Allergy to substance Allergy to substance Allergy to substance [facility] ([facility]) Family History Family Member Name Family Member Gender Family Member Status Date o f Status Description Data Source(s) Unknown Unknown Problem [facility] ([facility] Unknown Unknown Problem MEDENT ([facility], ) Unknown Unknown Problem MEDENT ([facility] Unknown Unknown Problem MEDENT ([facility]) Encounters Encounter Providers Location Date Indications Data Source(s ) Outpatient Attender: Robert Wheeler MD Main office - [place] 06/17/2021 11:45:00 AM EDT MED[facility] ([facility], ) [place] [address] [facility] [place] [address] 06/15/2021 12:00:00 AM EDT eCW1 ([facility]) Outpatient [address] [facility] [place] [address] 06/15/2021 12:00:00 AM EDT eCW1 ([facility]) Unknown [address] [facility] [place] [address] 06/03/2021 12:00:00 AM EDT eCW1 ([facility]) Unknown [address] [facility] [place] [address] 05/15/2021 12:00:00 AM EDT eCW1 ([facility]) Unknown [address] [facility] [place] [address] 05/11/2021 12:00:00 AM EDT eCW1 ([facility]) Unknown [address] [facility] [place] [address] 05/07/2021 12:00:00 AM EDT eCW1 ([facility]) Outpatient [address] [facility] [place] [address] 04/28/2021 12:00:00 AM EDT eCW1 ([facility]) Unknown [address] [facility] [address] 04/15/2021 12:00:00 AM EDT eCW1 ([facility]) Unknown [address] [facility] [address] 03/30/2021 12:00:00 AM EDT eCW1 ([facility]) Outpatient Attender: MINISTERIO GHOSH [facility] Office 02/19 01:30:00 PM EDT MED[facility] ([facility] Unknown [address] [facility] [place] [address] 03/03/2021 12:00:00 AM EDT eCW1 ([facility]) Outpatient Attender: MINISTERIO GHOSH [facility] Office 01/2021 01:30:00 PM EDT MED[facility] ([facility] [place] [address] [facility] [address] 12/03/2020 12:00:00 AM EDT eCW1 ([facility]) Outpatient [address] [facility] [place] [address] 11/26/2020 12:00:00 AM EDT eCW1 ([facility]) Unknown [address] [facility] [place] [address] 10/28/2020 12:00:00 AM EST eCW1 ([facility]) Outpatient [address] [facility] [place] [address] 10/28/2020 12:00:00 AM EST eCW1 ([facility]) Outpatient Attender: MINISTERIO GHOSH [facility] Office 09/23 01:30:00 PM EST MEDENT ([facility] Unknown [address] [facility] [address] 10/14/2020 12:00:00 AM EST eCW1 ([facility]) Unknown [address] [facility] [address] 10/06/2020 12:00:00 AM EST eCW1 ([facility]) Unknown [address] [facility] [id number] 10/01/2020 12:00:00 AM EST eCW1 ([facility]) Unknown [address] [facility] [address] 09/29/2020 12:00:00 AM EST eCW1 ([facility]) Victorino Solorzano MD: [address] [place] [phone], Ph. Attender: Victorino Solorzano MD [facility] Medical 08/26/2020 12:00:00 AM EST [facility] ([facility]) Victorino Solorzano MD: [address] [place] [phone], Ph. Attender: Victorino Solorzano MD [facility] Medical 08/26/2020 12:00:00 AM EST [facility] ([facility]) Outpatient Attender: MINISTERIO GHOSH [facility] Office 07/22 01:15:00 PM EST MEDENT ([facility] Unknown [address] [facility] [id number] 07/24/2020 12:00:00 AM EST eCW1 ([facility]) Unknown [address] [facility] [address] 07/14/2020 12:00:00 AM EST eCW1 ([facility]) Outpatient Attender: Jacque FANGTram 06/20/2020 09:32:00 A M EDT [facility] Outpatient Attender: Jacque FANG 06/20/2020 09:31:01 A M EDT [facility] Outpatient Attender: Jacque RAMIRES 06/19/2020 12:46:00 P M EDT [facility] Unknown [address] [facility] [place] [address] 06/18/2020 12:00:00 AM EDT eCW1 ([facility]) Unknown [address] [facility] [place] [address] 06/17/2020 12:00:00 AM EDT eCW1 ([facility]) Outpatient Attender: Jacque FANGTram 06/16/2020 09:51:01 A M EDT [facility] Outpatient Attender: Jacque RAMIRES 06/13/2020 02:48:01 P M EDT [facility] Outpatient [address] [facility] [place] [address] 06/11/2020 12:00:00 AM EDT eCW1 ([facility]) Unknown [address] [facility] [place] [address] 06/11/2020 12:00:00 AM EDT eCW1 ([facility]) Unknown [address] [facility] [place] [address] 05/23/2020 12:00:00 AM EDT eCW1 ([facility]) Unknown [address] [facility] [place] [address] 05/22/2020 12:00:00 AM EDT eCW1 ([facility]) Immunizations Vaccine Date Status Description Data Source(s) VARICELLA-ZOSTER [id number] 04/22/2021 12:00:00 AM EDT completed [facility] As of April 1999, a 2-dose hepatitis B schedule for adolescents (11-15 year olds) was FDA approved for [employer]'s Recombivax HB adult formulation. Use code 43 for the 2-dose. This code should be used for any use of standard adult formulation of hepatitis B vaccine. 10/28/2020 10:51:00 AM EST completed eCW1 ([facility]) As of April 1999, a 2-dose hepatitis B schedule for adolescents (11-15 year olds) was FDA approved for [employer]'s Recombivax HB adult formulation. Use code 43 for the 2-dose. This code should be used for any use of standard adult formulation of hepatitis B vaccine. 10/28/2020 10:51:00 AM EST completed eCW1 ([facility]) As of April 1999, a 2-dose hepatitis B schedule for adolescents (11-15 year olds) was FDA approved for [employer]'s Recombivax HB adult formulation. Use code 43 for the 2-dose. This code should be used for any use of standard adult formulation of hepatitis B vaccine. 10/28/2020 10:51:00 AM EST completed eCW1 ([facility]) As of April 1999, a 2-dose hepatitis B schedule for adolescents (11-15 year olds) was FDA approved for [employer]'s Recombivax HB adult formulation. Use code 43 for the 2-dose. This code should be used for any use of standard adult formulation of hepatitis B vaccine. 10/28/2020 10:51:00 AM EST completed eCW1 ([facility]) As of April 1999, a 2-dose hepatitis B schedule for adolescents (11-15 year olds) was FDA approved for [employer]'s Recombivax HB adult formulation. Use code 43 for the 2-dose. This code should be used for any use of standard adult formulation of hepatitis B vaccine. 10/28/2020 10:51:00 AM EST completed eCW1 ([facility]) As of April 1999, a 2-dose hepatitis B schedule for adolescents (11-15 year olds) was FDA approved for Mer[employer]'s Recombivax HB adult formulation. Use code 43 for the 2-dose. This code should be used for any use of standard adult formulation of hepatitis B vaccine. 10/28/2020 10:51:00 AM EST completed eCW1 ([facility]) As of April 1999, a 2-dose hepatitis B schedule for adolescents (11-15 year olds) was FDA approved for Merck's Recombivax HB adult formulation. Use code 43 for the 2-dose. This code should be used for any use of standard adult formulation of hepatitis B vaccine. 10/28/2020 10:51:00 AM EST completed eCW1 ([facility]) As of April 1999, a 2-dose hepatitis B schedule for adolescents (11-15 year olds) was FDA approved for Merck's Recombivax HB adult formulation. Use code 43 for the 2-dose. This code should be used for any use of standard adult formulation of hepatitis B vaccine. 10/28/2020 10:51:00 AM EST completed eCW1 ([facility]) As of April 1999, a 2-dose hepatitis B schedule for adolescents (11-15 year olds) was FDA approved for Merck's Recombivax HB adult formulation. Use code 43 for the 2-dose. This code should be used for any use of standard adult formulation of hepatitis B vaccine. 10/28/2020 10:51:00 AM EST completed eCW1 ([facility]) As of April 1999, a 2-dose hepatitis B schedule for adolescents (11-15 year olds) was FDA approved for Merck's Recombivax HB adult formulation. Use code 43 for the 2-dose. This code should be used for any use of standard adult formulation of hepatitis B vaccine. 10/28/2020 10:51:00 AM EST completed eCW1 ([facility]) As of April 1999, a 2-dose hepatitis B schedule for adolescents (11-15 year olds) was FDA approved for Merck's Recombivax HB adult formulation. Use code 43 for the 2-dose. This code should be used for any use of standard adult formulation of hepatitis B vaccine. 10/28/2020 10:51:00 AM EST completed eCW1 ([facility]) As of April 1999, a 2-dose hepatitis B schedule for adolescents (11-15 year olds) was FDA approved for Merck's Recombivax HB adult formulation. Use code 43 for the 2-dose. This code should be used for any use of standard adult formulation of hepatitis B vaccine. 10/28/2020 10:51:00 AM EST completed eCW1 ([facility]) As of April 1999, a 2-dose hepatitis B schedule for adolescents (11-15 year olds) was FDA approved for Merck's Recombivax HB adult formulation. Use code 43 for the 2-dose. This code should be used for any use of standard adult formulation of hepatitis B vaccine. 10/28/2020 10:51:00 AM EST completed eCW1 ([facility]) As of April 1999, a 2-dose hepatitis B schedule for adolescents (11-15 year olds) was FDA approved for Merck's Recombivax HB adult formulation. Use code 43 for the 2-dose. This code should be used for any use of standard adult formulation of hepatitis B vaccine. 10/28/2020 10:51:00 AM EST completed eCW1 ([facility]) COVID-19 dose #2 given elsewhere Unspecified 10/15/2020 10:1 9:00 AM EST completed eCW1 ([facility]) COVID-19 dose #2 given elsewhere Unspecified 10/15/2020 10:1 9:00 AM EST completed eCW1 ([facility]) COVID-19 VACCINE Moderna 09/25/2020 12:00:00 AM EST completed [facility] Vaccine Series Complete: YESThis Data wa s Submitted to [facility] Via [employer]. COVID-19, mRNA, LNP-S, PF, 100 mcg/0.5 mL dose 08/26/2020 10 :42:26 AM EST completed 10.5 mL [facility] ([facility]) COVID-19, mRNA, LNP-S, PF, 100 mcg/0.5 mL dose 08/26/2020 10 :42:26 AM EST completed .5 mL [facility] ([facility]) COVID-19 dose #1 given elsewhere Unspecified 08/26/2020 10:1 8:00 AM EST completed eCW1 ([facility]) COVID-19 dose #1 given elsewhere Unspecified 08/26/2020 10:1 8:00 AM EST completed eCW1 ([facility]) COVID-19 VACCINE Moderna 08/26/2020 12:00:00 AM EST completed [facility] Vaccine Series Complete: NOThis Data was Submitted to [facility] Via [employer]. As of April 1999, a 2-dose hepatitis B schedule for adolescents (11-15 year olds) was FDA approved for Merck's Recombivax HB adult formulation. Use code 43 for the 2-dose. This code should be used for any use of standard adult formulation of hepatitis B vaccine. 06/11/2020 02:18:00 PM EDT completed eCW1 ([facility]) influenza, recombinant, quadrIvalent,injectable, prese rvative free 06/11/2020 02:18:00 PM EDT completed eCW1 ([facility]) As of April 1999, a 2-dose hepatitis B schedule for adolescents (11-15 year olds) was FDA approved for Merck's Recombivax HB adult formulation. Use code 43 for the 2-dose. This code should be used for any use of standard adult formulation of hepatitis B vaccine. 06/11/2020 02:18:00 PM EDT completed eCW1 ([facility]) influenza, recombinant, quadrIvalent,injectable, prese rvative free 06/11/2020 02:18:00 PM EDT completed eCW1 ([facility]) As of April 1999, a 2-dose hepatitis B schedule for adolescents (11-15 year olds) was FDA approved for Merck's Recombivax HB adult formulation. Use code 43 for the 2-dose. This code should be used for any use of standard adult formulation of hepatitis B vaccine. 06/11/2020 02:18:00 PM EDT completed eCW1 ([facility]) influenza, recombinant, quadrIvalent,injectable, prese rvative free 06/11/2020 02:18:00 PM EDT completed eCW1 ([facility]) As of April 1999, a 2-dose hepatitis B schedule for adolescents (11-15 year olds) was FDA approved for Merck's Recombivax HB adult formulation. Use code 43 for the 2-dose. This code should be used for any use of standard adult formulation of hepatitis B vaccine. 06/11/2020 02:18:00 PM EDT completed eCW1 ([facility]) influenza, recombinant, quadrIvalent,injectable, prese rvative free 06/11/2020 02:18:00 PM EDT completed eCW1 ([facility]) As of April 1999, a 2-dose hepatitis B schedule for adolescents (11-15 year olds) was FDA approved for Merck's Recombivax HB adult formulation. Use code 43 for the 2-dose. This code should be used for any use of standard adult formulation of hepatitis B vaccine. 06/11/2020 02:18:00 PM EDT completed eCW1 ([facility]) influenza, recombinant, quadrIvalent,injectable, prese rvative free 06/11/2020 02:18:00 PM EDT completed eCW1 ([facility]) As of April 1999, a 2-dose hepatitis B schedule for adolescents (11-15 year olds) was FDA approved for Merck's Recombivax HB adult formulation. Use code 43 for the 2-dose. This code should be used for any use of standard adult formulation of hepatitis B vaccine. 06/11/2020 02:18:00 PM EDT completed eCW1 ([facility]) influenza, recombinant, quadrIvalent,injectable, prese rvative free 06/11/2020 02:18:00 PM EDT completed eCW1 ([facility]) As of April 1999, a 2-dose hepatitis B schedule for adolescents (11-15 year olds) was FDA approved for Merck's Recombivax HB adult formulation. Use code 43 for the 2-dose. This code should be used for any use of standard adult formulation of hepatitis B vaccine. 06/11/2020 02:18:00 PM EDT completed eCW1 ([facility]) influenza, recombinant, quadrIvalent,injectable, prese rvative free 06/11/2020 02:18:00 PM EDT completed eCW1 ([facility]) As of April 1999, a 2-dose hepatitis B schedule for adolescents (11-15 year olds) was FDA approved for Merck's Recombivax HB adult formulation. Use code 43 for the 2-dose. This code should be used for any use of standard adult formulation of hepatitis B vaccine. 06/11/2020 02:18:00 PM EDT completed eCW1 ([facility]) influenza, recombinant, quadrIvalent,injectable, prese rvative free 06/11/2020 02:18:00 PM EDT completed eCW1 ([facility]) As of April 1999, a 2-dose hepatitis B schedule for adolescents (11-15 year olds) was FDA approved for Merck's Recombivax HB adult formulation. Use code 43 for the 2-dose. This code should be used for any use of standard adult formulation of hepatitis B vaccine. 06/11/2020 02:18:00 PM EDT completed eCW1 ([facility]) influenza, recombinant, quadrIvalent,injectable, prese rvative free 06/11/2020 02:18:00 PM EDT completed eCW1 ([facility]) As of April 1999, a 2-dose hepatitis B schedule for adolescents (11-15 year olds) was FDA approved for Merck's Recombivax HB adult formulation. Use code 43 for the 2-dose. This code should be used for any use of standard adult formulation of hepatitis B vaccine. 06/11/2020 02:18:00 PM EDT completed eCW1 ([facility]) influenza, recombinant, quadrIvalent,injectable, prese rvative free 06/11/2020 02:18:00 PM EDT completed eCW1 ([facility]) As of April 1999, a 2-dose hepatitis B schedule for adolescents (11-15 year olds) was FDA approved for Merck's Recombivax HB adult formulation. Use code 43 for the 2-dose. This code should be used for any use of standard adult formulation of hepatitis B vaccine. 06/11/2020 02:18:00 PM EDT completed eCW1 ([facility]) influenza, recombinant, quadrIvalent,injectable, prese rvative free 06/11/2020 02:18:00 PM EDT completed eCW1 ([facility]) As of April 1999, a 2-dose hepatitis B schedule for adolescents (11-15 year olds) was FDA approved for Merck's Recombivax HB adult formulation. Use code 43 for the 2-dose. This code should be used for any use of standard adult formulation of hepatitis B vaccine. 06/11/2020 02:18:00 PM EDT completed eCW1 ([facility]) influenza, recombinant, quadrIvalent,injectable, prese rvative free 06/11/2020 02:18:00 PM EDT completed eCW1 ([facility]) As of April 1999, a 2-dose hepatitis B schedule for adolescents (11-15 year olds) was FDA approved for Merck's Recombivax HB adult formulation. Use code 43 for the 2-dose. This code should be used for any use of standard adult formulation of hepatitis B vaccine. 06/11/2020 02:18:00 PM EDT completed eCW1 ([facility]) influenza, recombinant, quadrIvalent,injectable, prese rvative free 06/11/2020 02:18:00 PM EDT completed eCW1 ([facility]) As of April 1999, a 2-dose hepatitis B schedule for adolescents (11-15 year olds) was FDA approved for Merck's Recombivax HB adult formulation. Use code 43 for the 2-dose. This code should be used for any use of standard adult formulation of hepatitis B vaccine. 06/11/2020 02:18:00 PM EDT completed eCW1 ([facility]) influenza, recombinant, quadrIvalent,injectable, prese rvative free 06/11/2020 02:18:00 PM EDT completed eCW1 ([facility]) As of April 1999, a 2-dose hepatitis B schedule for adolescents (11-15 year olds) was FDA approved for Merck's Recombivax HB adult formulation. Use code 43 for the 2-dose. This code should be used for any use of standard adult formulation of hepatitis B vaccine. 06/11/2020 02:18:00 PM EDT completed eCW1 ([facility]) influenza, recombinant, quadrIvalent,injectable, prese rvative free 06/11/2020 02:18:00 PM EDT completed eCW1 ([facility]) As of April 1999, a 2-dose hepatitis B schedule for adolescents (11-15 year olds) was FDA approved for Merck's Recombivax HB adult formulation. Use code 43 for the 2-dose. This code should be used for any use of standard adult formulation of hepatitis B vaccine. 06/11/2020 02:18:00 PM EDT completed eCW1 ([facility]) influenza, recombinant, quadrIvalent,injectable, prese rvative free 06/11/2020 02:18:00 PM EDT completed eCW1 ([facility]) As of April 1999, a 2-dose hepatitis B schedule for adolescents (11-15 year olds) was FDA approved for Merck's Recombivax HB adult formulation. Use code 43 for the 2-dose. This code should be used for any use of standard adult formulation of hepatitis B vaccine. 06/11/2020 02:18:00 PM EDT completed eCW1 ([facility]) influenza, recombinant, quadrIvalent,injectable, prese rvative free 06/11/2020 02:18:00 PM EDT completed eCW1 ([facility]) As of April 1999, a 2-dose hepatitis B schedule for adolescents (11-15 year olds) was FDA approved for Merck's Recombivax HB adult formulation. Use code 43 for the 2-dose. This code should be used for any use of standard adult formulation of hepatitis B vaccine. 06/11/2020 02:18:00 PM EDT completed eCW1 ([facility]) influenza, recombinant, quadrIvalent,injectable, prese rvative free 06/11/2020 02:18:00 PM EDT completed eCW1 ([facility]) As of April 1999, a 2-dose hepatitis B schedule for adolescents (11-15 year olds) was FDA approved for Merck's Recombivax HB adult formulation. Use code 43 for the 2-dose. This code should be used for any use of standard adult formulation of hepatitis B vaccine. 06/11/2020 02:18:00 PM EDT completed eCW1 ([facility]) influenza, recombinant, quadrIvalent,injectable, prese rvative free 06/11/2020 02:18:00 PM EDT completed eCW1 ([facility]) As of April 1999, a 2-dose hepatitis B schedule for adolescents (11-15 year olds) was FDA approved for Merck's Recombivax HB adult formulation. Use code 43 for the 2-dose. This code should be used for any use of standard adult formulation of hepatitis B vaccine. 06/11/2020 02:18:00 PM EDT completed eCW1 ([facility]) influenza, recombinant, quadrIvalent,injectable, prese rvative free 06/11/2020 02:18:00 PM EDT completed eCW1 ([facility]) As of April 1999, a 2-dose hepatitis B schedule for adolescents (11-15 year olds) was FDA approved for Merck's Recombivax HB adult formulation. Use code 43 for the 2-dose. This code should be used for any use of standard adult formulation of hepatitis B vaccine. 06/11/2020 02:18:00 PM EDT completed eCW1 ([facility]) influenza, recombinant, quadrIvalent,injectable, prese rvative free 06/11/2020 02:18:00 PM EDT completed eCW1 ([facility]) As of April 1999, a 2-dose hepatitis B schedule for adolescents (11-15 year olds) was FDA approved for Merck's Recombivax HB adult formulation. Use code 43 for the 2-dose. This code should be used for any use of standard adult formulation of hepatitis B vaccine. 06/11/2020 02:18:00 PM EDT completed eCW1 ([facility]) influenza, recombinant, quadrIvalent,injectable, prese rvative free 06/11/2020 02:18:00 PM EDT completed eCW1 ([facility]) As of April 1999, a 2-dose hepatitis B schedule for adolescents (11-15 year olds) was FDA approved for Merck's Recombivax HB adult formulation. Use code 43 for the 2-dose. This code should be used for any use of standard adult formulation of hepatitis B vaccine. 06/11/2020 02:18:00 PM EDT completed eCW1 ([facility]) influenza, recombinant, quadrIvalent,injectable, prese rvative free 06/11/2020 02:18:00 PM EDT completed eCW1 ([facility]) As of April 1999, a 2-dose hepatitis B schedule for adolescents (11-15 year olds) was FDA approved for Merck's Recombivax HB adult formulation. Use code 43 for the 2-dose. This code should be used for any use of standard adult formulation of hepatitis B vaccine. 06/11/2020 02:18:00 PM EDT completed eCW1 ([facility]) influenza, recombinant, quadrIvalent,injectable, prese rvative free 06/11/2020 02:18:00 PM EDT completed eCW1 ([facility]) Medications Medication Brand Name Start Date Product Form Dose Route Admi nistrative Instructions Pharmacy Instructions Status Indications Reaction Description Data Source(s) Dextromethorphan Hydrobromide 20 MG / Qu inidine Sulfate 10 MG Oral Capsule [Nuedexta] Nuedexta 06/17/2021 12:00:00 AM EDT ORAL act jonelle MEDENT ([facility], ) Sulfamethoxazole 800 MG / Trimethoprim 1 60 MG Oral Tablet [Bactrim] Bactrim DS 800-160 MG Bactrim DS 800-160 MG 05/11/2021 12:00:00 AM EDT 1.0 {table t} suspended Bactrim DS 800-160 MG eCW1 ( [facility]) Sulfamethoxazole 800 MG / Trimethoprim 1 60 MG Oral Tablet [Bactrim] Bactrim DS 800-160 MG Bactrim DS 800-160 MG 05/11/2021 12:00:00 AM EDT 1.0 {table t} active Bactrim DS 800-160 MG eCW1 ( [facility]) Sulfamethoxazole 800 MG / Trimethoprim 1 60 MG Oral Tablet [Bactrim] Bactrim DS 800-160 MG Bactrim DS 800-160 MG 05/11/2021 12:00:00 AM EDT 1.0 {table t} suspended Bactrim DS 800-160 MG eCW1 ( [facility]) Sulfamethoxazole 800 MG / Trimethoprim 1 60 MG Oral Tablet [Bactrim] Bactrim DS 800-160 MG Bactrim DS 800-160 MG 05/11/2021 12:00:00 AM EDT 1.0 {table t} active Bactrim DS 800-160 MG eCW1 ( [facility]) Sulfamethoxazole 800 MG / Trimethoprim 1 60 MG Oral Tablet [Bactrim] Bactrim DS 800-160 MG Bactrim DS 800-160 MG 05/11/2021 12:00:00 AM EDT 1.0 {table t} active Bactrim DS 800-160 MG eCW1 ( [facility]) Occupational Therapy UNK 03/30/2021 12:00:00 AM EDT active Occupational Therapy eCW1 ([facility]) Occupational Therapy UNK 03/30/2021 12:00:00 AM EDT active Occupational Therapy eCW1 ([facility]) Occupational Therapy UNK 03/30/2021 12:00:00 AM EDT active Occupational Therapy eCW1 ([facility]) Occupational Therapy UNK 03/30/2021 12:00:00 AM EDT active Occupational Therapy eCW1 ([facility]) Occupational Therapy UNK 03/30/2021 12:00:00 AM EDT active Occupational Therapy eCW1 ([facility]) Occupational Therapy UNK 03/30/2021 12:00:00 AM EDT active Occupational Therapy eCW1 ([facility]) Occupational Therapy UNK 03/30/2021 12:00:00 AM EDT active Occupational Therapy eCW1 ([facility]) Occupational Therapy UNK 03/30/2021 12:00:00 AM EDT active Occupational Therapy eCW1 ([facility]) Occupational Therapy UNK 03/30/2021 12:00:00 AM EDT active Occupational Therapy eCW1 ([facility]) May Use - UNK 06/18/2020 12:00:00 AM EDT active May Use - eCW1 ([facility]) May Use - UNK 06/18/2020 12:00:00 AM EDT active May Use - eCW1 ([facility]) May Use - UNK 06/18/2020 12:00:00 AM EDT active May Use - eCW1 ([facility]) May Use - UNK 06/18/2020 12:00:00 AM EDT active May Use - eCW1 ([facility]) May Use - UNK 06/18/2020 12:00:00 AM EDT active May Use - eCW1 ([facility]) May Use - UNK 06/18/2020 12:00:00 AM EDT active May Use - eCW1 ([facility]) May Use - UNK 06/18/2020 12:00:00 AM EDT active May Use - eCW1 ([facility]) May Use - UNK 06/18/2020 12:00:00 AM EDT active May Use - eCW1 ([facility]) May Use - UNK 06/18/2020 12:00:00 AM EDT active May Use - eCW1 ([facility]) May Use - UNK 06/18/2020 12:00:00 AM EDT active May Use - eCW1 ([facility]) May Use - UNK 06/18/2020 12:00:00 AM EDT active May Use - eCW1 ([facility]) May Use - UNK 06/18/2020 12:00:00 AM EDT active May Use - eCW1 ([facility]) May Use - UNK 06/18/2020 12:00:00 AM EDT active May Use - eCW1 ([facility]) May Use - UNK 06/18/2020 12:00:00 AM EDT active May Use - eCW1 ([facility]) May Use - UNK 06/18/2020 12:00:00 AM EDT active May Use - eCW1 ([facility]) May Use - K 06/18/2020 12:00:00 AM EDT active May Use - eCW1 ([facility]) May Use - UNK 06/18/2020 12:00:00 AM EDT active May Use - eCW1 ([facility]) May Use - UNK 06/18/2020 12:00:00 AM EDT active May Use - eCW1 ([facility]) May Use - UNK 06/18/2020 12:00:00 AM EDT active May Use - eCW1 ([facility]) May Use - UNK 06/18/2020 12:00:00 AM EDT active May Use - eCW1 ([facility]) May Use - UNK 06/18/2020 12:00:00 AM EDT active May Use - eCW1 ([facility]) May Use - UNK 06/18/2020 12:00:00 AM EDT active May Use - eCW1 ([facility]) May Use - UNK 06/18/2020 12:00:00 AM EDT active May Use - eCW1 ([facility]) Insurance Providers Payer name Policy type / Coverage type Policy ID Covered alliance party ID Covered alliance party's relationship to lux Policy Lux Plan Information MEDICARE [id number] SP [id number] A MEDICARE A [id number] Self [id number] A [id number] A MEDICAID M [id number] Self [id number] Medicaid Dental S [id number] S [id number] 028N Medicaid Dental S [id number] S [id number] 028N Medicaid Dental P [id number] S [id number] 028N [place] Med[place] Part [place] [id number] Self [id number] Medicare [place] Primary [id number] Self [id number] MEDICAID [id number] SP [id number] MEDICAID [id number] SP [id number] Medicaid S [id number] S [id number] MEDICAID [id number] SP [id number] ANS-Medicaid [id number] ANSI-Medicare Part B [id number] ANSI-Medicaid [id number] ANS-Medicare Part B [id number] ANSMedicare Part B [id number] ANSI-Medicaid [id number] ANSI-Medicaid [id number] ANSI-Medicare Part B [id number] ANSI-Medicare Part B [id number] ANSI-Medicaid [id number] ANSI-Medicare Part B [id number] ANSI-Medicaid [id number] ANSI-Medicare Part B [id number] ANSI-Medicaid [id number] ANSI-Medicare Part B [id number] ANSI-Medicaid [id number] ANSI-Medicare Part B [id number] ANSI-Medicaid [id number] Medicaid Medicaid [id number] Self [id number] Medicare Medicare Primary [id number] Self [id number] ANSI-Medicaid [id number] ANSI-Medicare Part B [id number] Medicaid P [id number] S [id number] ANSI-Medicare Part B [id number] ANSI-Medicaid [id number] Medicaid Medicaid [id number] Se lf [id number] Medicare Medicare Primary [id number] .1298.0 Self [id number] ANSI-Medicare Part B [id number] ANSI-Medicaid [id number] ANSI-Medicare Part B [id number] ANSI-Medicaid [id number] ANSI-Medicare Part B [id number] ANSI-Medicaid [id number] ANSI-Medicare Part B [id number] ANSI-Medicaid [id number] ANSI-Medicare Part B [id number] ANSI-Medicaid [id number] Medicaid Medicaid [id number] Se [id number] Medicare Medicare Primary [id number] .1298.0 Self [id number] ANSI-Medicare Part B [id number] ANSI-Medicaid [id number] ANSI-Medicare Part B [id number] ANSI-Medicaid [id number] ANSI-Medicaid [id number] ANSI-Medicare Part B [id number] ANSI-Medicaid [id number] ANSI-Medicare Part B [id number] ANSI-Medicare Part B [id number] ANSI-Medicaid [id number] ANSI-Medicare Part B [id number] ANSI-Medicaid [id number] Medicaid Medicaid [id number] Se lf [id number] Medicare Medicare Primary [id number] .1298.0 Self [id number] MEDICAID M [id number] S [id number] MEDICARE C [id number] S [id number] A Medicaid [place] [facility] Part B [id number] .1014.0 Self [id number] Medicare Natl Gov't Servi Medicare Primary [id number] Self 1 [id number] MEDICAID [id number] SP [id number] [place] [facility] Part B [id number] Self [id number] [place] Medicare Primary [id number] Self [id number] Medicaid Medicaid [id number] Se lf [id number] Medicare Medicare Primary [id number] .1298.0 Self [id number] [place] [id number] .1014.0 Self [id number] Medicare Natl Gov't Servi Medicare Primary [id number] Self 1 [id number] [place] 1051 Self Medicare Natl Gov't Servi Medicare Primary [id number] Self Medicaid MRDD Dental O [id number] S [id number] Medicaid Dental S [id number] S [id number] MEDICAID W [id number] S [id number] MEDICARE INPATIENT M [id number] S [id number] MEDICARE -O/P [id number] 18 [id number] MEDICAID-O/P [id number] N MEDICAID - O/P EMERGENCY ROOM [id number] 18 [id number] MEDICARE PART A-O/P [id number] 18 [id number] M [id number] S [id number] A W [id number] S [id number] [facility] MEDICAID [id number] SP [id number] N [id number] MEDICARE [id number] SP [id number] [facility] MEDICAID [id number] SP [id number] N [place] [id number] SP [id number] SELF PAY SP Medicare P [id number] S [id number] [place] [id number] SP [id number] MEDICARE [id number] SP [id number] A Medicare P [id number] S [id number] A ANSI-Medicare Part B [id number] ANSI-Medicaid [id number] MEDICAID [id number] SP [id number] Problems, Conditions, and Diagnoses Code Display Name Description Problem Type Effective Dates Data Source(s) F48.2 Pseudobulbar affect Pseudobulbar affect Problem 1 12:00:00 AM EDT MEDENT ([facility], ) R26.81 Abnormal gait Abnormal gait Problem 06/17/2021 12:00:00 AM EDT MEDENT ([facility], ) R62.0 Delayed milestone Delayed milestone Problem 06/17/2021 12:00:00 AM EDT MEDENT ([facility], ) F48.2 [id number] Pseudobulbar affect Problem 06/15/2021 12:00 :00 AM EDT eCW1 ([facility]) R32 [id number] Urinary incontinence, unspecified type Pr oblem 05/15/2021 12:00:00 AM EDT eCW1 ([facility]) Surgeries/Procedures Procedure Description Date Indications Data Source(s) OFFICE OUTPATIENT NEW 30 MINUTES 06/17/2021 12:00:00 A M EDT [facility] ([facility], ) DEBRIDEMENT NAIL ANY METHOD 6/> 05/14/2021 12:00:00 AM EDT [facility] ([facility] OFFICE OUTPATIENT VISIT 10 MINUTES 03/05/2021 12:00:00 AM EDT [facility] ([facility] OFFICE OUTPATIENT VISIT 10 MINUTES 12/25/2020 12:00:00 AM EDT [facility] ([facility] HEPATITIS B VACCINE ADULT DOSAGE INTRAMUSCULAR 021 12:00:00 AM EST eCW1 ([facility]) OFFICE OUTPATIENT VISIT 10 MINUTES 10/15/2020 12:00:00 AM EST [facility] ([facility] Immunization: Flublok Quadrivalent (18 years & older) 0.5mL IM (Influenza) 06/11/2020 12:00:00 AM EDT eCW1 ([facility]) HEPATITIS B VACCINE ADULT DOSAGE INTRAMUSCULAR 020 12:00:00 AM EDT eCW1 ([facility]) Results ID Date Data Source [id number] 06/13/2020 01:36:38 PM EDT [facility] Patient History Medical History: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 *can't turn head far for x-rays*Family History:Social/Personal History: Smoking Status: former smokerCurrent Problems: Teeth extraction (ICD-525.10) (ICD10- K08.499)Other disturbances of oral epithelium, including tongue (ICD-528.79) (RKA72-G70.29)Leukoplakia of oral mucosa, 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) (TPX90-K34.21)Hypertension (ICD-401.9) (UKV57-O37)Hyperlipidemia (ICD-272.4) (URP01-S33.5)Osteoporosis (ICD-733.00) (ZYW10-K44.0)ORAL LESION, UNSPECIFIED (ICD-528.9)Current Medications: * ALBUTEROL PRN * DEBROX EAR DROPS * LANTANOPROST eye drops* BRIMONIDINE TARTRATE eye gtts* TIMOLOL eye gtts* DULCOLAX * MOM * RECLAST * TRAZODONE * HYDROCHOROTHIAZIDE * MVI * CALCIUM WITH VIT D * ZOCOR Past Medical History:(reviewed - no changes required) GlacomaPinched nerve in neck- previous fx neck *can't turn head far for x-rays* Dental Chart: Procedures:Type - CDT Code - Description B - (D1110) Prophylaxis, adult (Performed by Leeanne Luis) B - (D0120) Periodic oral evaluation - established patient (Performed by Janelle Kan DMD) Existing:Type - CDT Code - Description[E] Missing - [place] [address] [place] XR Chart Alert:Prophy 1 per 6 month periodchild through age 13adult +13next avail has an appt 05/17/16Exam 1 per 6 month periodnext avail has an appt 05/17/16FL2 per 6 month periodthrough age 21next availBWX 4 films per 6 month periodnext avail 05/17/16Panorex 1 every 3 yearsnext avail 05/07/2014Sealants every 5 yearsage 5-15 Chart Notes:kerri (Jun 13 2020 2:16PM): [facility] with patient- No changes per aide. No problems or concerns today. Adult prophy - handscaled, brushed, albanian, flossOH-PoorPatient referred to OS for extraction of # 3, 7 and 12. Informed the aide that patient needs to have teeth extracted, otherwise patient can land with infectionPatient is helped with brushing am pm, flossing using plackers. Heavy generalized marginal biofilm and marginal and interproximal calculus in sextant 5. Food impaction between mandibular molars Tissues- inflammed and severe bleeding. Radiographs revealed generalized horizontal bone loss and localized vertical bone loss. Recommended- brushing am pm, flossing with plackers and then use Listerine zero total care. NV-6 months recall Leeanne Luis by kerri (06/13/2020 2:16 PM): ; rhonda (Jun 16 2020 9:50AM): [facility] CC: none. Reviewed Xrays. Exam: fractured teeth and multiple teeth with mobility detected, very poor OH. OCS: WNL, IO/ EO completed, No significant hard findings upon clinical exam.Additional PPE requirements due to COVID-19 in the dental setting, N95, surgical mask, hair covering, gown and shieldPt was cooperative. OHI given Referral: Advised Aid to min to get a consult with OS first then treat as sym progress NV:recallLeeanne Luis by rhonda (06/16/2020 9:50 AM): Tooth Notes and Watches:- Tooth 12 Note: Mobility presentHouppert Lesly ORTIZ by abby (11/01/2013 11:40 AM): Amber Silva by elvira (05/17/2016 11:48 AM): Judie Cali by heidi (02/09/2018 11:51 AM): - Tooth 12 Watch: Lakeisha Mack by lou (11/11/2015 10:30 AM): - Tooth 15 Note: DNRHouppLesly burris RDH by abby (11/01/2013 11:44 AM): - Tooth 18 Watch: Leeanne Shepherd by kerri (04/16/2019 9:48 AM): - Tooth 18 Note: grade 4 mobilityLeeanne Luis by kerri (06/13/2020 2:18 PM): - Tooth 19 Note: grade 4 mobilityBaSierra garciaasha by kerri (06/13/2020 2:18 PM): - Tooth 20 Note: grade 2 mobiltyBaLeeanne garcia by kerri (06/13/2020 2:18 PM): - Tooth 20 Watch: MesialLakeisha Zaragoza by lou (11/11/2015 10:30 AM): - Tooth 21 Note: grade 2 mobiltyLanSierra garciaasha by kerri (06/13/2020 2:18 PM): - Tooth 29 Note: grade 1 mobiltyTobySierraLeeanne by kerri (06/13/2020 2:19 PM): - Tooth 29 Watch: DistalLakeisha Zaragoza by lou (11/11/2015 10:30 AM): - Tooth 8 Note: No further attempts at filling. Pt chews on her lap belt and has had numerous fillings placed on this tooth.Lakeisha Zaragoza by lou (11/11/2015 10:30 AM): Assessment & Plan Medications:ALBUTEROL PRNDEBROX EAR DROPSLANTANOPROSTBRIMONIDINE TARTRATETIMOLOLDULCOLAXMOMRECLASTTRAZODONEHYDROCHOROTHIAZIDEMVICALCIUM WITH VIT DZOCORAllergies:No Known Allergies (updated 06/13/2020) Name Value Range Interpretation Code Description Data Heidi rce(s) Supporting Document(s) Procedure Social History Code Duration Value Status Description Data Source(s ) Smoking 06/15/2021 12:00:00 AM EDT Never Smoker completed Never S moker eCW1 ([facility]) Smoking 06/15/2021 12:00:00 AM EDT Never Smoker completed Never S moker eCW1 ([facility]) Smoking 04/28/2021 12:00:00 AM EDT Never Smoker completed Never S moker eCW1 ([facility]) Smoking 04/28/2021 12:00:00 AM EDT Never Smoker completed Never S moker eCW1 ([facility]) Smoking 04/28/2021 12:00:00 AM EDT Never Smoker completed Never S moker eCW1 ([facility]) Smoking 04/28/2021 12:00:00 AM EDT Never Smoker completed Never S moker eCW1 ([facility]) Smoking 04/28/2021 12:00:00 AM EDT Never Smoker completed Never S moker eCW1 ([facility]) Smoking 12/02/2020 12:00:00 AM EDT Never Smoker completed Never S moker eCW1 ([facility]) Smoking 12/02/2020 12:00:00 AM EDT Never Smoker completed Never S moker eCW1 ([facility]) Smoking 12/02/2020 12:00:00 AM EDT Never Smoker completed Never S moker eCW1 ([facility]) Smoking 12/02/2020 12:00:00 AM EDT Never Smoker completed Never S moker eCW1 ([facility]) Smoking 12/02/2020 12:00:00 AM EDT Never Smoker completed Never S moker eCW1 ([facility]) Smoking 06/24/2020 12:00:00 AM EST Never Smoker completed Never S moker eCW1 ([facility]) Smoking 06/24/2020 12:00:00 AM EST Never Smoker completed Never S moker eCW1 ([facility]) Smoking 06/24/2020 12:00:00 AM EST Never Smoker completed Never S moker eCW1 ([facility]) Smoking 06/24/2020 12:00:00 AM EST Never Smoker completed Never S moker eCW1 ([facility]) Smoking 06/24/2020 12:00:00 AM EST Never Smoker completed Never S moker eCW1 ([facility]) Smoking 06/24/2020 12:00:00 AM EST Never Smoker completed Never S moker eCW1 ([facility]) Smoking 06/24/2020 12:00:00 AM EST Never Smoker completed Never S moker eCW1 ([facility]) Smoking 06/24/2020 12:00:00 AM EST Never Smoker completed Never S moker eCW1 ([facility]) Smoking 06/24/2020 12:00:00 AM EST Never Smoker completed Never S moker eCW1 ([facility]) Smoking 06/11/2020 12:00:00 AM EDT Never Smoker completed Never S moker eCW1 ([facility]) Smoking 06/11/2020 12:00:00 AM EDT Never Smoker completed Never S moker eCW1 ([facility]) Smoking 06/11/2020 12:00:00 AM EDT Never Smoker completed Never S moker eCW1 ([facility]) Vital Signs ID Date Data Source UNK Name Value Range Interpretation Code Description Data Source(s) Body weight 162.00 [lb_av] 162.00 [lb_av] MEDEN T ([facility], ) Body mass index (BMI) [Ratio] 31.6 kg/m2 31.6 k g/m2 MEDENT ([facility], ) Diastolic blood pressure 70 mm[Hg] 70 mm[Hg] MEDENT ([facility], ) Systolic blood pressure 115 mm[Hg] 115 mm[Hg] M EDENT ([facility], ) [place] body weight 100 [lb_av] 100 [lb_av] MEDEN T ([facility], ) Heart rate 70 /min 70 /min MEDENT ([facility], ) Respiratory rate 14 /min 14 /min MEDENT ( [facility], ) Body height 60 [in_i] 60 [in_i] MEDENT ([facility], ) 5'0" Body weight 164 [lb_av] 164 [lb_av] eCW1 ([facility]) Body weight 74.39 kg 74.39 kg eCW1 (Counts include 234 beds at the [facility]) Body height 59 [in_i] 59 [in_i] eCW1 (Counts include 234 beds at the [facility]) Body mass index (BMI) [Ratio] 33.12 kg/m2 33.12 kg/m2 eCW1 ([facility]) Heart rate 59 /min 59 /min eCW1 ([facility]) Respiratory rate 18 /min 18 /min eCW1 ([facility]) Body temperature 97.5 [degF] 97.5 [degF] eCW1 ( [facility]) Systolic blood pressure 113 mm[Hg] 113 mm[Hg] e CW1 ([facility]) Diastolic blood pressure 73 mm[Hg] 73 mm[Hg] eCW1 ([facility]) Body weight 161 [lb_av] 161 [lb_av] eCW1 ([facility]) Body temperature 97.7 [degF] 97.7 [degF] eCW1 ( [facility]) Systolic blood pressure 185 mm[Hg] 185 mm[Hg] e CW1 ([facility]) Diastolic blood pressure 85 mm[Hg] 85 mm[Hg] eCW1 ([facility]) Body weight 73.03 kg 73.03 kg eCW1 (Counts include 234 beds at the [facility]) Body height 59 [in_i] 59 [in_i] eCW1 (Counts include 234 beds at the [facility]) Body mass index (BMI) [Ratio] 32.51 kg/m2 32.51 kg/m2 eCW1 ([facility]) Heart rate 67 /min 67 /min eCW1 ([facility]) Respiratory rate 18 /min 18 /min eCW1 ([facility]) Body weight 1 [lb_av] 1 [lb_av] eCW1 (Counts include 234 beds at the [facility]) Body height 59 [in_i] 59 [in_i] eCW1 (Counts include 234 beds at the [facility]) Body mass index (BMI) [Ratio] 0.20 kg/m2 0.20 k g/m2 eCW1 ([facility]) Heart rate 61 /min 61 /min eCW1 ([facility]) Respiratory rate 18 /min 18 /min eCW1 ([facility]) Body temperature 97.7 [degF] 97.7 [degF] eCW1 ( [facility]) Systolic blood pressure 168 mm[Hg] 168 mm[Hg] e CW1 ([facility]) Diastolic blood pressure 80 mm[Hg] 80 mm[Hg] eCW1 ([facility]) Body temperature 97.4 [degF] 97.4 [degF] eCW1 ( [facility]) Systolic blood pressure 147 mm[Hg] 147 mm[Hg] e CW1 ([facility]) Body weight 163 [lb_av] 163 [lb_av] eCW1 ([facility]) Diastolic blood pressure 83 mm[Hg] 83 mm[Hg] eCW1 ([facility]) Body height 59 [in_i] 59 [in_i] eCW1 (Counts include 234 beds at the [facility]) Body mass index (BMI) [Ratio] 32.92 kg/m2 32.92 kg/m2 eCW1 ([facility]) Heart rate 66 /min 66 /min eCW1 ([facility]) Respiratory rate 18 /min 18 /min eCW1 ([facility]) Patient Treatment Plan of Care Planned Activity Planned Date Details Description Data Source (s) Sulfamethoxazole 800 MG / Trimethoprim 160 MG Oral Tab let [Bactrim] 05/11/2021 12:00:00 AM EDT eCW1 ([facility]) Sulfamethoxazole 800 MG / Trimethoprim 160 MG Oral Tab let [Bactrim] 05/11/2021 12:00:00 AM EDT eCW1 ([facility]) Sulfamethoxazole 800 MG / Trimethoprim 160 MG Oral Tab let [Bactrim] 05/11/2021 12:00:00 AM EDT eCW1 ([facility]) Occupational Therapy 03/30/2021 12:00:00 AM EDT eCW1 ([facility]) Occupational Therapy 03/30/2021 12:00:00 AM EDT eCW1 ([facility]) May Use - 06/18/2020 12:00:00 AM EDT e CW1 ([facility]) May Use - 06/18/2020 12:00:00 AM EDT e CW1 ([facility]) May Use - 06/18/2020 12:00:00 AM EDT e CW1 ([facility]) May Use - 06/18/2020 12:00:00 AM EDT e CW1 ([facility]) May Use - 06/18/2020 12:00:00 AM EDT e CW1 ([facility]) May Use - 06/18/2020 12:00:00 AM EDT e CW1 ([facility]) May Use - 06/18/2020 12:00:00 AM EDT e CW1 ([facility]) May Use - 06/18/2020 12:00:00 AM EDT e CW1 ([facility]) May Use - 06/18/2020 12:00:00 AM EDT e CW1 ([facility]) May Use - 06/18/2020 12:00:00 AM EDT e CW1 ([facility]) May Use - 06/18/2020 12:00:00 AM EDT e CW1 ([facility])
--- NOTE | 2021-07-13 06:45 | ED PDOC ---
Post-Departure Follow-Up dr patten faxed ct c spine for fu Steph Argueta MD Jul 13, 2021 06:45
== END 2021-07-13 06:21 | disposition home or self-care (01) ==
LOC: M ED 02:08 → EDBD 02:08 → M ED 06:21
DX: S00.03XA Contusion of scalp, initial encounter (principal); W18.39XA Other fall on same level, initial encounter; Y92.018 Other place in single-family (private) house as the place of occurrence of the external cause; M94.0 Chondrocostal junction syndrome [Tietze]; E11.9 Type 2 diabetes mellitus without complications; E78.5 Hyperlipidemia, unspecified; H40.9 Unspecified glaucoma; Z79.899 Other long term (current) drug therapy; Z79.84 Long term (current) use of oral hypoglycemic drugs

== ENCOUNTER → 2021-07-23 | Outpatient (CLI) | payer MEDICARE, MEDICAID ==
[~2021-07-23] MED LIST changes: -LISI-898 PO; +LISI5TAB11 PO
[2021-07-23 12:43] LABS: BASO % 0.2 % (0.0-1.0); EOS # 0.1 10^3/uL (0.0-0.5); EOS % 0.5 % (0.0-3.0); HEMATOCRIT 42.1 % (36.0-47.0); LYMPH # 1.5 10^3/uL (1.5-5.0); LYMPH % 8.5 % (24.0-44.0); MEAN CORPUSCULAR HEMOGLOBIN 30.2 pg (27.0-33.0); MEAN CORPUSCULAR HGB CONC 30.9 g/dl (32.0-36.5); MEAN CORPUSCULAR VOLUME 97.9 fl (80.0-96.0); MONO # 1.4 10^3/uL (0.0-0.8); MONO % 7.9 % (2.0-8.0); NEUTROPHILS # 14.2 10^3/uL (1.5-8.5); NEUTROPHILS % 82.4 % (36.0-66.0); PLATELET COUNT, AUTOMATED 220 10^3/uL (150-450); WHITE BLOOD COUNT 17.3 10^3/uL (4.0-10.0)
[2021-07-23 13:04] LABS: BLOOD UREA NITROGEN 27 MG/DL (7-18); CARBON DIOXIDE LEVEL 33 MEQ/L (21-32); CHLORIDE LEVEL 102 MEQ/L (98-107); GLOMERULAR FILTRATION RATE > 60.0 (>39); GLUCOSE, FASTING 79 MG/DL (70-100); POTASSIUM SERUM 4.8 MEQ/L (3.5-5.1); SODIUM LEVEL 139 MEQ/L (136-145)
== END ==
LOC: M WUC 10:11
PROVIDERS: ATTEND Family Medicine
DX: R91.8 Other nonspecific abnormal finding of lung field (principal); J40 Bronchitis, not specified as acute or chronic

== ENCOUNTER → 2021-07-23 | Outpatient (CLI) | payer MEDICARE, MEDICAID ==
[~2021-07-23] MED LIST changes: +LISI-898 PO; -LISI5TAB11 PO
[2021-07-23 13:13] LABS: THYROID STIMULATING HORMONE 2.31 uIU/ML (0.358-3.740)
[2021-07-23 13:14] LABS: FOLATE 5.9 NG/ML (>5.4)
[2021-08-01 16:09] LABS: VITAMIN B1 LEVEL WHOLE BLOOD 240.6 nmol/L (66.5-200.0); VITAMIN B6,PYRIDOXAL PHOSPHATE 4.4 ug/L (2.0-32.8); VITAMIN E(ALPHA TOCOPHEROL) 9.4 mg/L (9.0-29.0)
== END ==
LOC: M WUC 10:14
PROVIDERS: ATTEND Psychiatry & Neurology Neurology
DX: E03.9 Hypothyroidism, unspecified (principal); E53.8 Deficiency of other specified B group vitamins; E51.9 Thiamine deficiency, unspecified
CPT/HCPCS: 36415; 71046; 80048; 82607; 82746; 84207; 84425; 84443; 84446; 85025; 87426; 87804; G0463; U0003

== ENCOUNTER → 2021-09-29 | Outpatient (REF) | payer MEDICARE, MEDICAID ==
[~2021-09-29] MED LIST changes: -LISI-898 PO; +LISI5TAB11 PO
== END ==
LOC: M SFHCLERA 11:27
PROVIDERS: ATTEND Family Medicine
DX: R05.9 Cough, unspecified (principal)

== ENCOUNTER → 2021-10-01 | Outpatient (CLI) | payer MEDICARE, MEDICAID ==
[2021-10-01 12:47] LABS: BASO % 0.3 % (0.0-1.0); EOS # 0.1 10^3/uL (0.0-0.5); EOS % 0.9 % (0.0-3.0); HEMATOCRIT 39.4 % (36.0-47.0); HEMOGLOBIN 12.3 g/dl (12.0-15.5); LYMPH # 1.5 10^3/uL (1.5-5.0); LYMPH % 16.8 % (24.0-44.0); MEAN CORPUSCULAR HEMOGLOBIN 30.8 pg (27.0-33.0); MEAN CORPUSCULAR HGB CONC 31.2 g/dl (32.0-36.5); MEAN CORPUSCULAR VOLUME 98.5 fl (80.0-96.0); MONO # 0.9 10^3/uL (0.0-0.8); MONO % 10.4 % (2.0-8.0); NEUTROPHILS # 6.4 10^3/uL (1.5-8.5); NEUTROPHILS % 71.3 % (36.0-66.0); PLATELET COUNT, AUTOMATED 196 10^3/uL (150-450)
[2021-10-01 13:22] LABS: ALBUMIN 2.8 GM/DL (3.2-5.2); ALT/SGPT 39 U/L (12-78); BILIRUBIN,TOTAL 0.1 MG/DL (0.2-1.0); BLOOD UREA NITROGEN 17 MG/DL (7-18); CALCIUM LEVEL 9.4 MG/DL (8.8-10.2); CARBON DIOXIDE LEVEL 31 MEQ/L (21-32); CHLORIDE LEVEL 102 MEQ/L (98-107); CREATININE FOR GFR 0.72 MG/DL (0.55-1.30); GLOMERULAR FILTRATION RATE > 60.0 (>39); GLUCOSE, FASTING 94 MG/DL (70-100); SODIUM LEVEL 138 MEQ/L (136-145); TOTAL PROTEIN 6.4 GM/DL (6.4-8.2)
== END ==
LOC: M WUC 10:31
PROVIDERS: ATTEND Family Medicine
DX: J18.9 Pneumonia, unspecified organism (principal); J90 Pleural effusion, not elsewhere classified

== ENCOUNTER → 2021-10-12 | Outpatient (CLI) | payer MEDICARE, MEDICAID | LOC: M RAD 09:30 | PROVIDERS: ATTEND Family Medicine | DX: M25.561 Pain in right knee (principal); M17.11 Unilateral primary osteoarthritis, right knee ==

== ENCOUNTER → 2021-12-14 | Outpatient (CLI) | payer MEDICARE, MEDICAID | LOC: M WUC 11:06 | PROVIDERS: ATTEND Family Medicine | DX: J20.9 Acute bronchitis, unspecified (principal) | CPT/HCPCS: 71046; G0463 ==

== ENCOUNTER → 2022-02-08 | Outpatient (CLI) | payer MEDICARE, MEDICAID ==
[~2022-02-08] MED LIST changes: +ALBU2.5V10 INH; -ALBU83IN INH
== END ==
LOC: M WUC 11:37
PROVIDERS: ATTEND Family Medicine
DX: R05.9 Cough, unspecified (principal)

== ENCOUNTER 2022-02-13 06:55 | Inpatient (IN) | payer MEDICARE, MEDICAID ==
[~2022-02-13] VITALS: Ht 154.9 cm; Wt 98.1 kg
[~2022-02-13 06:55] MED LIST changes: -BRIM0.2S13 OD; +BRIM0.2S13 OU
[2022-02-13 07:12] LABS: VENOUS BASE EXCESS -1.1 (-2.0-2.0); VENOUS HCO3 25.3 MEQ/L (23.0-27.0); VENOUS O2 SATURATION 94.7 % (60.0-80.0); VENOUS PARTIAL PRESSURE CO2 49.3 mmHg (38.0-50.0); VENOUS PARTIAL PRESSURE O2 76.5 mmHg (30.0-50.0); VENOUS PH 7.328 UNITS (7.330-7.430); VENOUS STANDARD HCO3 23.5 MEQ/L; VENOUS TOTAL CO2 26.8 MEQ/L (24.0-28.0)
[2022-02-13] MEDS ORDERED: RACEPINEPHrine 2.25 % UD INHA As Ordered ONE (07:13)
[2022-02-13 07:15] LABS: BASO % 0.2 % (0.0-1.0); EOS # 0.2 10^3/uL (0.0-0.5); EOS % 0.8 % (0.0-3.0); HEMOGLOBIN 12.1 g/dl (12.0-15.5); LYMPH % 4.7 % (24.0-44.0); MEAN CORPUSCULAR HEMOGLOBIN 31.5 pg (27.0-33.0); MEAN CORPUSCULAR HGB CONC 31.8 g/dl (32.0-36.5); MONO # 1.4 10^3/uL (0.0-0.8); MONO % 6.7 % (2.0-8.0); NEUTROPHILS # 18.3 10^3/uL (1.5-8.5); NEUTROPHILS % 86.9 % (36.0-66.0); PLATELET COUNT, AUTOMATED 211 10^3/uL (150-450); RED BLOOD COUNT 3.84 10^6/uL (4.00-5.40); WHITE BLOOD COUNT 21.1 10^3/uL (4.0-10.0)
[2022-02-13] MEDS ORDERED: RACEPINEPHrine 2.25 % UD INHA INH ONE (07:15)
[2022-02-13] MEDS ORDERED: CEFEPIME HCL 2 GM in D5W MINI-BAG PLUS 50 ML IV ONE (07:40)
[2022-02-13 07:52] LABS: ALBUMIN 3.3 GM/DL (3.2-5.2); ALT/SGPT 43 U/L (12-78); BILIRUBIN,DIRECT < 0.1 MG/DL (0.0-0.2); BILIRUBIN,TOTAL 0.2 MG/DL (0.2-1.0); BLOOD UREA NITROGEN 44 MG/DL (7-18); CALCIUM LEVEL 9.9 MG/DL (8.8-10.2); CARBON DIOXIDE LEVEL 27 MEQ/L (21-32); CHLORIDE LEVEL 107 MEQ/L (98-107); CREATININE FOR GFR 1.12 MG/DL (0.55-1.30); GLOMERULAR FILTRATION RATE 50.5 (>39); GLUCOSE, FASTING 100 MG/DL (70-100); NT-PRO BNP 132 PG/ML (<450); SODIUM LEVEL 140 MEQ/L (136-145)
[2022-02-13] MEDS ORDERED: ISOVUE-370 76% 100ML VIAL As Ordered ONE (08:48)
[2022-02-13] MEDS ORDERED: HumuLIN R (REGULAR) INSULIN (NovoLIN R) **100U/ML** PER UNIT IV ONE (09:20)
[2022-02-13] MEDS ORDERED: PATIROMER SORBITEX CALCIUM 8.4 GM POWDER PACKET (VELTASSA) PO ONE (09:20)
[2022-02-13] MEDS ORDERED: CALCIUM CHLORIDE 10% 1 GM/10 ML SYR IV ONE (09:20)
[2022-02-13] MEDS ORDERED: SODIUM BICARBONATE 8.4% INJ 50 ML SYRINGE IV ONE (09:20)
[2022-02-13] MEDS ORDERED: NS 1,000 ML IV SCH (09:20)
[2022-02-13] MEDS ORDERED: CETI-24 PO (10:40)
[2022-02-13] MEDS ORDERED: TIMO1DRO OU (10:40)
[2022-02-13] MEDS ORDERED: MILKSUS3 PO (10:40)
[2022-02-13] MEDS ORDERED: HOME MED LIST COMPLETE! XX SCH (10:45)
[2022-02-13] MEDS ORDERED: ALBUTEROL SULFATE 2.5 MG/0.5 ML INH NEB SOLN INH PRN (11:20)
[2022-02-13] MEDS: PIPERACILLIN/TAZOBACTAM SOD 4.5 GM in D5W MINI-BAG PLUS 50 ML IV SCH ×2 (11:20→19:00)
[2022-02-13] MEDS: D5W/0.45% SODIUM CHLORIDE 1,000 ML IV SCH (11:21)
[2022-02-13 15:36] LABS: CALCIUM LEVEL 9.5 MG/DL (8.8-10.2); CREATININE FOR GFR 0.97 MG/DL (0.55-1.30); GLOMERULAR FILTRATION RATE 59.6 (>39); POTASSIUM SERUM 4.9 MEQ/L (3.5-5.1)
[2022-02-13 16:00] VITALS: BP 120/85
[2022-02-13 22:00] VITALS: BP 118/45
[2022-02-13] MEDS: LATANOPROST 0.005% OPHTH SOLN 2.5 ML OU SCH (22:02)
[2022-02-13] MEDS: ENOXAPARIN 40MG/0.4ML SYRINGE (J1650 PER 10MG) SC SCH (22:06)
[2022-02-14] MEDS: PIPERACILLIN/TAZOBACTAM SOD 4.5 GM in D5W MINI-BAG PLUS 50 ML IV SCH ×4 (00:36→17:53)
[2022-02-14] MEDS: D5W/0.45% SODIUM CHLORIDE 1,000 ML IV SCH ×2 (03:13→14:04)
[2022-02-14 06:00] VITALS: BP 125/54
[2022-02-14 06:34] LABS: HEMATOCRIT 36.5 % (36.0-47.0); HEMOGLOBIN 11.2 g/dl (12.0-15.5); MEAN CORPUSCULAR HEMOGLOBIN 31.2 pg (27.0-33.0); MEAN CORPUSCULAR HGB CONC 30.7 g/dl (32.0-36.5); MEAN CORPUSCULAR VOLUME 101.7 fl (80.0-96.0); PLATELET COUNT, AUTOMATED 149 10^3/uL (150-450); RED BLOOD COUNT 3.59 10^6/uL (4.00-5.40); WHITE BLOOD COUNT 17.3 10^3/uL (4.0-10.0)
[2022-02-14 06:59] LABS: BLOOD UREA NITROGEN 32 MG/DL (7-18); CARBON DIOXIDE LEVEL 29 MEQ/L (21-32); CHLORIDE LEVEL 106 MEQ/L (98-107); GLOMERULAR FILTRATION RATE > 60.0 (>39); GLUCOSE, FASTING 95 MG/DL (70-100); SODIUM LEVEL 141 MEQ/L (136-145)
[2022-02-14 14:00] VITALS: BP_SYST 108; BP_SYST 123; BP_DIAS 43; BP_DIAS 54
[2022-02-14 20:26] VITALS: BP 123/54
[2022-02-14] MEDS: ENOXAPARIN 40MG/0.4ML SYRINGE (J1650 PER 10MG) SC SCH (20:34)
[2022-02-14] MEDS: LATANOPROST 0.005% OPHTH SOLN 2.5 ML OU SCH (20:34)
[2022-02-15] MEDS: PIPERACILLIN/TAZOBACTAM SOD 4.5 GM in D5W MINI-BAG PLUS 50 ML IV SCH ×4 (00:44→17:37)
[2022-02-15] MEDS: D5W/0.45% SODIUM CHLORIDE 1,000 ML IV SCH ×3 (01:39→20:29)
[2022-02-15 06:16] LABS: HEMATOCRIT 36.9 % (36.0-47.0); HEMOGLOBIN 11.6 g/dl (12.0-15.5); MEAN CORPUSCULAR HEMOGLOBIN 31.7 pg (27.0-33.0); MEAN CORPUSCULAR HGB CONC 31.4 g/dl (32.0-36.5); MEAN CORPUSCULAR VOLUME 100.8 fl (80.0-96.0); PLATELET COUNT, AUTOMATED 146 10^3/uL (150-450); RED BLOOD COUNT 3.66 10^6/uL (4.00-5.40); WHITE BLOOD COUNT 10.8 10^3/uL (4.0-10.0)
[2022-02-15 06:26] VITALS: BP 155/65
[2022-02-15 06:27] LABS: BLOOD UREA NITROGEN 22 MG/DL (7-18); CALCIUM LEVEL 8.9 MG/DL (8.8-10.2); CARBON DIOXIDE LEVEL 29 MEQ/L (21-32); CHLORIDE LEVEL 107 MEQ/L (98-107); CREATININE FOR GFR 0.73 MG/DL (0.55-1.30); GLOMERULAR FILTRATION RATE > 60.0 (>39); GLUCOSE, FASTING 105 MG/DL (70-100); MAGNESIUM LEVEL 2.1 MG/DL (1.8-2.4); POTASSIUM SERUM 4.4 MEQ/L (3.5-5.1); SODIUM LEVEL 142 MEQ/L (136-145)
[2022-02-15 14:00] VITALS: BP 148/70
[2022-02-15] MEDS: LATANOPROST 0.005% OPHTH SOLN 2.5 ML OU SCH (21:02)
[2022-02-15] MEDS: ENOXAPARIN 40MG/0.4ML SYRINGE (J1650 PER 10MG) SC SCH (21:02)
[2022-02-15 22:00] VITALS: BP 142/68
[2022-02-16] MEDS: PIPERACILLIN/TAZOBACTAM SOD 4.5 GM in D5W MINI-BAG PLUS 50 ML IV SCH ×2 (00:14→05:33)
[2022-02-16 06:00] VITALS: BP 142/68
[2022-02-16 06:14] LABS: HEMATOCRIT 36.6 % (36.0-47.0); HEMOGLOBIN 11.5 g/dl (12.0-15.5); MEAN CORPUSCULAR HEMOGLOBIN 31.3 pg (27.0-33.0); MEAN CORPUSCULAR HGB CONC 31.4 g/dl (32.0-36.5); MEAN CORPUSCULAR VOLUME 99.5 fl (80.0-96.0); PLATELET COUNT, AUTOMATED 151 10^3/uL (150-450); RED BLOOD COUNT 3.68 10^6/uL (4.00-5.40); WHITE BLOOD COUNT 9.8 10^3/uL (4.0-10.0)
[2022-02-16 06:36] LABS: BLOOD UREA NITROGEN 15 MG/DL (7-18); CARBON DIOXIDE LEVEL 30 MEQ/L (21-32); CHLORIDE LEVEL 109 MEQ/L (98-107); CREATININE FOR GFR 0.78 MG/DL (0.55-1.30); GLOMERULAR FILTRATION RATE > 60.0 (>39); GLUCOSE, FASTING 96 MG/DL (70-100); POTASSIUM SERUM 4.1 MEQ/L (3.5-5.1); SODIUM LEVEL 142 MEQ/L (136-145)
[2022-02-16] MEDS ORDERED: VARIBAR PUDDING 40% w/v 230ML TUBE As Ordered ONE (11:01)
[2022-02-16] MEDS ORDERED: VARIBAR NECTAR 40% w/v 240ML SUSP BTL As Ordered ONE (11:01)
[2022-02-16] MEDS ORDERED: E-Z-PAQUE 96% w/w SUSP 176GM BTL As Ordered ONE (11:01)
[2022-02-16] MEDS ORDERED: MOXIFLOXACIN HCL 400 MG in IV 1 EA IV SCH (12:00)
[2022-02-16] MEDS: D5W/0.45% SODIUM CHLORIDE 1,000 ML IV SCH (12:45)
[2022-02-16 14:00] VITALS: BP 153/51
[2022-02-16] MEDS ORDERED: MOM 30ML SUSPENSION UDC PO PRN (16:50)
[2022-02-16] MEDS: ENOXAPARIN 40MG/0.4ML SYRINGE (J1650 PER 10MG) SC SCH (22:08)
[2022-02-16] MEDS: DOCUSATE SODIUM 100MG CAPSULE PO SCH (22:08)
[2022-02-16] MEDS: lisinopriL 5 MG TAB PO SCH (22:08)
[2022-02-16] MEDS: CETIRIZINE (ZyrTEC) 10 MG TAB PO SCH (22:09)
[2022-02-16] MEDS: TIMOLOL MALEATE 0.5% OPHTH SOLN 5 ML OU SCH (22:09)
[2022-02-16] MEDS: BRIMONIDINE 0.15% OPHTH SOLN 5 ML OU SCH (22:09)
[2022-02-16] MEDS: traZODone 50 MG TAB PO SCH (22:09)
[2022-02-16] MEDS: SIMVASTATIN 40 MG TAB PO SCH (22:09)
[2022-02-16] MEDS: LATANOPROST 0.005% OPHTH SOLN 2.5 ML OU SCH (22:10)
[2022-02-17 06:01] LABS: HEMATOCRIT 38.2 % (36.0-47.0); HEMOGLOBIN 11.9 g/dl (12.0-15.5); MEAN CORPUSCULAR HEMOGLOBIN 30.8 pg (27.0-33.0); MEAN CORPUSCULAR HGB CONC 31.2 g/dl (32.0-36.5); PLATELET COUNT, AUTOMATED 171 10^3/uL (150-450); RED BLOOD COUNT 3.86 10^6/uL (4.00-5.40); WHITE BLOOD COUNT 14.8 10^3/uL (4.0-10.0)
[2022-02-17 06:05] VITALS: BP 136/74
[2022-02-17 06:30] LABS: BLOOD UREA NITROGEN 15 MG/DL (7-18); CALCIUM LEVEL 9.2 MG/DL (8.8-10.2); CARBON DIOXIDE LEVEL 30 MEQ/L (21-32); CHLORIDE LEVEL 110 MEQ/L (98-107); CREATININE FOR GFR 0.75 MG/DL (0.55-1.30); GLOMERULAR FILTRATION RATE > 60.0 (>39); GLUCOSE, FASTING 84 MG/DL (70-100); POTASSIUM SERUM 4.1 MEQ/L (3.5-5.1); SODIUM LEVEL 143 MEQ/L (136-145)
[2022-02-17 08:32] LABS: C REACTIVE PROTEIN QUANTITATIV 2.71 MG/DL (0.00-0.30)
[2022-02-17 08:33] LABS: C REACTIVE PROTEIN QUANTITATIV 2.81 MG/DL (0.00-0.30)
[2022-02-17 08:34] LABS: C REACTIVE PROTEIN QUANTITATIV 7.94 MG/DL (0.00-0.30)
[2022-02-17] MEDS: DOCUSATE SODIUM 100MG CAPSULE PO SCH ×2 (10:08→20:25)
[2022-02-17] MEDS: TIMOLOL MALEATE 0.5% OPHTH SOLN 5 ML OU SCH (10:09)
[2022-02-17] MEDS: MULTIVITAMINS/MINERALS THERAP 1 TAB PO SCH (10:09)
[2022-02-17] MEDS: BRIMONIDINE 0.15% OPHTH SOLN 5 ML OU SCH ×2 (10:09→21:05)
[2022-02-17] MEDS ORDERED: FUROSEMIDE 40MG/4ML VIAL (J1940) IV ONE (10:45)
[2022-02-17] MEDS: MOXIFLOXACIN 400 MG TAB PO SCH (11:57)
[2022-02-17] MEDS: traZODone 50 MG TAB PO SCH (21:04)
[2022-02-17] MEDS: SIMVASTATIN 40 MG TAB PO SCH (21:04)
[2022-02-17] MEDS: lisinopriL 5 MG TAB PO SCH (21:04)
[2022-02-17] MEDS: CETIRIZINE (ZyrTEC) 10 MG TAB PO SCH (21:05)
[2022-02-17] MEDS: ENOXAPARIN 40MG/0.4ML SYRINGE (J1650 PER 10MG) SC SCH (21:05)
[2022-02-17] MEDS: LATANOPROST 0.005% OPHTH SOLN 2.5 ML OU SCH (21:05)
[2022-02-18 06:00] VITALS: BP 158/53
[2022-02-18 06:31] LABS: HEMATOCRIT 36.7 % (36.0-47.0); HEMOGLOBIN 11.6 g/dl (12.0-15.5); MEAN CORPUSCULAR HEMOGLOBIN 31.3 pg (27.0-33.0); MEAN CORPUSCULAR HGB CONC 31.6 g/dl (32.0-36.5); MEAN CORPUSCULAR VOLUME 98.9 fl (80.0-96.0); PLATELET COUNT, AUTOMATED 173 10^3/uL (150-450); RED BLOOD COUNT 3.71 10^6/uL (4.00-5.40); WHITE BLOOD COUNT 10.7 10^3/uL (4.0-10.0)
[2022-02-18 07:03] LABS: BLOOD UREA NITROGEN 22 MG/DL (7-18); C REACTIVE PROTEIN QUANTITATIV 7.23 MG/DL (0.00-0.30); CALCIUM LEVEL 8.7 MG/DL (8.8-10.2); CARBON DIOXIDE LEVEL 34 MEQ/L (21-32); CHLORIDE LEVEL 106 MEQ/L (98-107); CREATININE FOR GFR 0.83 MG/DL (0.55-1.30); GLOMERULAR FILTRATION RATE > 60.0 (>39); GLUCOSE, FASTING 77 MG/DL (70-100); SODIUM LEVEL 143 MEQ/L (136-145)
[2022-02-18] MEDS: DOCUSATE SODIUM 100MG CAPSULE PO SCH ×2 (08:28→21:10)
[2022-02-18] MEDS: BRIMONIDINE 0.15% OPHTH SOLN 5 ML OU SCH ×2 (08:34→21:10)
[2022-02-18] MEDS: MULTIVITAMINS/MINERALS THERAP 1 TAB PO SCH (08:34)
[2022-02-18] MEDS: FUROSEMIDE 40 MG TAB PO SCH ×2 (10:54→17:46)
[2022-02-18] MEDS: MOXIFLOXACIN 400 MG TAB PO SCH (11:56)
[2022-02-18] MEDS: ENOXAPARIN 40MG/0.4ML SYRINGE (J1650 PER 10MG) SC SCH (21:10)
[2022-02-18] MEDS: CETIRIZINE (ZyrTEC) 10 MG TAB PO SCH (21:10)
[2022-02-18] MEDS: SIMVASTATIN 40 MG TAB PO SCH (21:10)
[2022-02-18] MEDS: traZODone 50 MG TAB PO SCH (21:10)
[2022-02-18] MEDS: LATANOPROST 0.005% OPHTH SOLN 2.5 ML OU SCH (21:10)
[2022-02-18 21:11] VITALS: BP 151/53
[2022-02-18] MEDS: lisinopriL 5 MG TAB PO SCH (21:11)
[2022-02-19 05:10] VITALS: BP 142/50
[2022-02-19 06:12] LABS: HEMATOCRIT 36.1 % (36.0-47.0); HEMOGLOBIN 11.2 g/dl (12.0-15.5); MEAN CORPUSCULAR HEMOGLOBIN 30.9 pg (27.0-33.0); MEAN CORPUSCULAR VOLUME 99.4 fl (80.0-96.0); PLATELET COUNT, AUTOMATED 177 10^3/uL (150-450); RED BLOOD COUNT 3.63 10^6/uL (4.00-5.40); WHITE BLOOD COUNT 10.7 10^3/uL (4.0-10.0)
[2022-02-19 06:40] LABS: BLOOD UREA NITROGEN 22 MG/DL (7-18); C REACTIVE PROTEIN QUANTITATIV 3.68 MG/DL (0.00-0.30); CALCIUM LEVEL 8.8 MG/DL (8.8-10.2); CARBON DIOXIDE LEVEL 29 MEQ/L (21-32); CHLORIDE LEVEL 109 MEQ/L (98-107); CREATININE FOR GFR 0.77 MG/DL (0.55-1.30); GLOMERULAR FILTRATION RATE > 60.0 (>39); GLUCOSE, FASTING 74 MG/DL (70-100); POTASSIUM SERUM 4.2 MEQ/L (3.5-5.1); SODIUM LEVEL 144 MEQ/L (136-145)
[2022-02-19] MEDS: MULTIVITAMINS/MINERALS THERAP 1 TAB PO SCH (08:43)
[2022-02-19] MEDS: FUROSEMIDE 40 MG TAB PO SCH (08:44)
[2022-02-19] MEDS: DOCUSATE SODIUM 100MG CAPSULE PO SCH (08:44)
[2022-02-19] MEDS: BRIMONIDINE 0.15% OPHTH SOLN 5 ML OU SCH (08:44)
[2022-02-19] MEDS ORDERED: MOXI400T11 PO (09:29)
[2022-02-19] MEDS ORDERED: FURO40TA2 PO (09:29)
[2022-02-19] MEDS: MOXIFLOXACIN 400 MG TAB PO SCH (11:31)
== END 2022-02-19 15:33 | disposition home or self-care (01) | DRG 178 ==
LOC: EDBD 06:55 → M ED 06:55 → UNDOADMOB 10:38 → M ED INP 10:38 → OBSVTOIN 10:44 → ENRESERV 14:19 → M MSPAV 15:41 → M ED INP 15:41
PROVIDERS: ADMIT Family Medicine; ATTEND Internal Medicine
DX: J69.0 Pneumonitis due to inhalation of food and vomit (principal); F72 Severe intellectual disabilities; E87.5 Hyperkalemia; E78.5 Hyperlipidemia, unspecified; E11.9 Type 2 diabetes mellitus without complications; M81.0 Age-related osteoporosis without current pathological fracture; I10 Essential (primary) hypertension; G47.00 Insomnia, unspecified; R60.0 Localized edema; R13.10 Dysphagia, unspecified; R00.1 Bradycardia, unspecified; Z79.84 Long term (current) use of oral hypoglycemic drugs; Z79.899 Other long term (current) drug therapy

== ENCOUNTER 2022-03-02 04:38 | Inpatient (IN) | payer MEDICARE, MEDICAID ==
[~2022-03-02] VITALS: Ht 165.1 cm; Wt 78.3 kg
[~2022-03-02 04:38] MED LIST changes: +CETI-24 PO; -DEBR6.5S4 OU; +FURO40TA2 PO; +MILKSUS3 PO; +MOXI400T11 PO; +TIMO1DRO OU
[2022-03-02 05:57] LABS: BASO # 0.1 10^3/uL (0.0-0.2); BASO % 0.4 % (0.0-1.0); EOS % 0.2 % (0.0-3.0); HEMATOCRIT 37.2 % (36.0-47.0); HEMOGLOBIN 11.9 g/dl (12.0-15.5); LYMPH # 1.5 10^3/uL (1.5-5.0); LYMPH % 10.8 % (24.0-44.0); MEAN CORPUSCULAR HEMOGLOBIN 31.1 pg (27.0-33.0); MEAN CORPUSCULAR VOLUME 97.1 fl (80.0-96.0); MONO # 1.3 10^3/uL (0.0-0.8); MONO % 9.6 % (2.0-8.0); NEUTROPHILS # 10.7 10^3/uL (1.5-8.5); NEUTROPHILS % 77.5 % (36.0-66.0); PLATELET COUNT, AUTOMATED 263 10^3/uL (150-450); RED BLOOD COUNT 3.83 10^6/uL (4.00-5.40); WHITE BLOOD COUNT 13.8 10^3/uL (4.0-10.0)
[2022-03-02 06:00] LABS: VENOUS BASE EXCESS 9.3 (-2.0-2.0); VENOUS HCO3 36.5 MEQ/L (23.0-27.0); VENOUS O2 SATURATION 71.9 % (60.0-80.0); VENOUS PARTIAL PRESSURE CO2 62.1 mmHg (38.0-50.0); VENOUS PARTIAL PRESSURE O2 37.9 mmHg (30.0-50.0); VENOUS PH 7.387 UNITS (7.330-7.430); VENOUS STANDARD HCO3 32.5 MEQ/L; VENOUS TOTAL CO2 38.4 MEQ/L (24.0-28.0)
[2022-03-02 06:22] LABS: CK-MB VALUE MASS 1.5 NG/ML (<3.6); MB/CK RELATIVE INDEX 0.24 (< OR =4)
[2022-03-02 06:34] LABS: ALBUMIN 2.7 GM/DL (3.2-5.2); BILIRUBIN,DIRECT 0.1 MG/DL (0.0-0.2); BILIRUBIN,TOTAL 0.4 MG/DL (0.2-1.0); CALCIUM LEVEL 9.6 MG/DL (8.8-10.2); CREATININE FOR GFR 1.1 MG/DL (0.55-1.30); GLOMERULAR FILTRATION RATE 51.5 (>39); POTASSIUM SERUM 4.5 MEQ/L (3.5-5.1); TOTAL PROTEIN 7.1 GM/DL (6.4-8.2)
[2022-03-02] MEDS ORDERED: ISOVUE-370 76% 100ML VIAL As Ordered ONE (06:55)
[2022-03-02 07:36] LABS: CK-MB VALUE MASS 1.3 NG/ML (<3.6); MB/CK RELATIVE INDEX 0.29 (< OR =4)
[2022-03-02] MEDS ORDERED: TIMO0.5S29 OU (14:14)
[2022-03-02] MEDS ORDERED: FURO40TA2 PO (14:14)
[2022-03-02] MEDS ORDERED: NYST1POW9 TOP (14:14)
[2022-03-02] MEDS ORDERED: HOME MED LIST COMPLETE! XX SCH (14:20)
[2022-03-02] MEDS ORDERED: MILKSUS3 PO (14:20)
[2022-03-02] MEDS ORDERED: DEXTROSE 50% 50 ML SYRINGE IV PRN (14:25)
[2022-03-02] MEDS ORDERED: ACETAMINOPHEN TAB 650MG DOSE (2X325MG) PO PRN (14:25)
[2022-03-02] MEDS ORDERED: ALBUTEROL 90 MCG/ACT 8GM HFA INHALER INH PRN (14:25)
[2022-03-02] MEDS ORDERED: MOM 30ML SUSPENSION UDC PO PRN (14:25)
[2022-03-02] MEDS ORDERED: GLUCOSE 4GM CHEW TABLET PO PRN (14:25)
[2022-03-02] MEDS ORDERED: MAALOX 30 ML SUSP *UDC PO PRN (14:25)
[2022-03-02] MEDS ORDERED: GLUCAGON INJ 1MG VIAL SC PRN (14:25)
[2022-03-02] MEDS ORDERED: LevoFLOXacin IV 750 MG in IV 1 EA IV SCH (15:00)
[2022-03-02] MEDS ORDERED: ONDANSETRON 4MG 2ML VIAL IV PRN (15:45)
[2022-03-02] MEDS ORDERED: INSULIN LISPRO (NovoLOG) PER UNIT SC SCH ×2 (17:30→21:00)
[2022-03-02 18:01] VITALS: BP 118/62
[2022-03-02 20:00] VITALS: BP 138/78
[2022-03-02] MEDS: D5W/0.9% SODIUM CHLORIDE 1,000 ML IV SCH (20:04)
[2022-03-02] MEDS: metroNIDAZOLE 500 MG in IV 1 EA IV SCH (20:04)
[2022-03-02] MEDS: BRIMONIDINE 0.15% OPHTH SOLN 5 ML OU SCH (20:31)
[2022-03-02] MEDS: LATANOPROST 0.005% OPHTH SOLN 2.5 ML OU SCH (20:31)
[2022-03-02] MEDS: TIMOLOL MALEATE 0.5% OPHTH SOLN 5 ML OU SCH (20:32)
[2022-03-02] MEDS: ENOXAPARIN 40MG/0.4ML SYRINGE (J1650 PER 10MG) SC SCH (20:32)
[2022-03-02] MEDS: SIMVASTATIN 40 MG TAB PO SCH (20:33)
[2022-03-02] MEDS: DOCUSATE SODIUM 100MG CAPSULE PO SCH (20:33)
[2022-03-02] MEDS: CETIRIZINE (ZyrTEC) 10 MG TAB PO SCH (20:33)
[2022-03-02] MEDS: traZODone 50 MG TAB PO SCH (20:33)
[2022-03-02] MEDS: lisinopriL 5 MG TAB PO SCH (20:34)
[2022-03-03] VITALS (15 sets, daily range): BP systolic 114–159; BP diastolic 56–80; O2SAT 92–96
[2022-03-03] MEDS: metroNIDAZOLE 500 MG in IV 1 EA IV SCH ×3 (00:51→15:39)
[2022-03-03] MEDS: INSULIN LISPRO (NovoLOG) PER UNIT SC SCH ×4 (06:00→23:32)
[2022-03-03] MEDS: DOCUSATE SODIUM 100MG CAPSULE PO SCH ×2 (07:49→20:12)
[2022-03-03] MEDS: MULTIVITAMINS/MINERALS THERAP 1 TAB PO SCH (07:49)
[2022-03-03] MEDS ORDERED: BISACODYL 10 MG SUPP PR ONE (08:10)
[2022-03-03] MEDS: BRIMONIDINE 0.15% OPHTH SOLN 5 ML OU SCH ×2 (08:17→20:12)
[2022-03-03] MEDS: NYSTATIN 100,000 UNITS/GM TOPICAL PWD 15 GM TOP SCH (08:17)
[2022-03-03] MEDS: TIMOLOL MALEATE 0.5% OPHTH SOLN 5 ML OU SCH ×2 (08:17→20:11)
[2022-03-03 08:43] LABS: BASO # 0.1 10^3/uL (0.0-0.2); BASO % 0.4 % (0.0-1.0); EOS % 0.3 % (0.0-3.0); HEMATOCRIT 33.5 % (36.0-47.0); HEMOGLOBIN 11.1 g/dl (12.0-15.5); LYMPH % 7.9 % (24.0-44.0); MEAN CORPUSCULAR HEMOGLOBIN 32.1 pg (27.0-33.0); MEAN CORPUSCULAR HGB CONC 33.1 g/dl (32.0-36.5); MEAN CORPUSCULAR VOLUME 96.8 fl (80.0-96.0); MONO # 1.1 10^3/uL (0.0-0.8); MONO % 8.7 % (2.0-8.0); NEUTROPHILS # 10.3 10^3/uL (1.5-8.5); NEUTROPHILS % 81.6 % (36.0-66.0); PLATELET COUNT, AUTOMATED 255 10^3/uL (150-450); RED BLOOD COUNT 3.46 10^6/uL (4.00-5.40); WHITE BLOOD COUNT 12.6 10^3/uL (4.0-10.0)
[2022-03-03 08:53] LABS: BLOOD UREA NITROGEN 19 MG/DL (7-18); CALCIUM LEVEL 8.8 MG/DL (8.8-10.2); CARBON DIOXIDE LEVEL 33 MEQ/L (21-32); CHLORIDE LEVEL 99 MEQ/L (98-107); CREATININE FOR GFR 0.76 MG/DL (0.55-1.30); GLOMERULAR FILTRATION RATE > 60.0 (>39); GLUCOSE, FASTING 129 MG/DL (70-100); POTASSIUM SERUM 4.4 MEQ/L (3.5-5.1); SODIUM LEVEL 135 MEQ/L (136-145)
[2022-03-03] MEDS ORDERED: VARIBAR PUDDING 40% w/v 230ML TUBE As Ordered ONE (10:03)
[2022-03-03] MEDS ORDERED: VARIBAR NECTAR 40% w/v 240ML SUSP BTL As Ordered ONE (10:04)
[2022-03-03] MEDS ORDERED: BARIUM SULFATE 700 MG TABLET (E-Z-DISK) As Ordered ONE (10:04)
[2022-03-03] MEDS ORDERED: E-Z-PAQUE 96% w/w SUSP 176GM BTL As Ordered ONE (10:04)
[2022-03-03] MEDS ORDERED: LevoFLOXacin IV 750 MG in IV 1 EA IV SCH (15:00)
[2022-03-03] MEDS: PIPERACILLIN/TAZOBACTAM SOD 3.375 GM in D5W MINI-BAG PLUS 50 ML IV SCH ×2 (17:10→23:29)
[2022-03-03] MEDS ORDERED: ISOVUE-370 76% 100ML VIAL As Ordered ONE (17:32)
[2022-03-03] MEDS: ENOXAPARIN 40MG/0.4ML SYRINGE (J1650 PER 10MG) SC SCH (20:11)
[2022-03-03] MEDS: SIMVASTATIN 40 MG TAB PO SCH (20:12)
[2022-03-03] MEDS: LATANOPROST 0.005% OPHTH SOLN 2.5 ML OU SCH (20:12)
[2022-03-03] MEDS: lisinopriL 5 MG TAB PO SCH (20:12)
[2022-03-03] MEDS: traZODone 50 MG TAB PO SCH (20:12)
[2022-03-03] MEDS: CETIRIZINE (ZyrTEC) 10 MG TAB PO SCH (20:12)
[2022-03-03] MEDS: D5W/0.9% SODIUM CHLORIDE 1,000 ML IV SCH (20:14)
[2022-03-04] VITALS (10 sets, daily range): BP systolic 134–169; BP diastolic 62–90; O2SAT 94–96
[2022-03-04] MEDS: D5W/0.9% SODIUM CHLORIDE 1,000 ML IV SCH (01:50)
[2022-03-04] MEDS: INSULIN LISPRO (NovoLOG) PER UNIT SC SCH ×4 (06:00→23:39)
[2022-03-04] MEDS: PIPERACILLIN/TAZOBACTAM SOD 3.375 GM in D5W MINI-BAG PLUS 50 ML IV SCH ×4 (06:02→23:39)
[2022-03-04 06:36] LABS: BASO # 0.1 10^3/uL (0.0-0.2); BASO % 0.4 % (0.0-1.0); EOS % 0.3 % (0.0-3.0); HEMATOCRIT 33.3 % (36.0-47.0); HEMOGLOBIN 10.8 g/dl (12.0-15.5); LYMPH % 7.6 % (24.0-44.0); MEAN CORPUSCULAR HEMOGLOBIN 31.4 pg (27.0-33.0); MEAN CORPUSCULAR HGB CONC 32.4 g/dl (32.0-36.5); MEAN CORPUSCULAR VOLUME 96.8 fl (80.0-96.0); MONO # 1.1 10^3/uL (0.0-0.8); MONO % 8.3 % (2.0-8.0); NEUTROPHILS # 11.3 10^3/uL (1.5-8.5); NEUTROPHILS % 82.7 % (36.0-66.0); PLATELET COUNT, AUTOMATED 260 10^3/uL (150-450); RED BLOOD COUNT 3.44 10^6/uL (4.00-5.40); WHITE BLOOD COUNT 13.6 10^3/uL (4.0-10.0)
[2022-03-04 07:11] LABS: BLOOD UREA NITROGEN 16 MG/DL (7-18); CALCIUM LEVEL 8.7 MG/DL (8.8-10.2); CARBON DIOXIDE LEVEL 28 MEQ/L (21-32); CHLORIDE LEVEL 102 MEQ/L (98-107); CREATININE FOR GFR 0.71 MG/DL (0.55-1.30); GLOMERULAR FILTRATION RATE > 60.0 (>39); GLUCOSE, FASTING 112 MG/DL (70-100); POTASSIUM SERUM 3.8 MEQ/L (3.5-5.1); SODIUM LEVEL 139 MEQ/L (136-145)
[2022-03-04] MEDS: PANTOPRAZOLE 40MG VIAL IV SCH (08:58)
[2022-03-04] MEDS: MULTIVITAMINS/MINERALS THERAP 1 TAB PO SCH (09:00)
[2022-03-04] MEDS: NYSTATIN 100,000 UNITS/GM TOPICAL PWD 15 GM TOP SCH (09:00)
[2022-03-04] MEDS: DOCUSATE SODIUM 100MG CAPSULE PO SCH ×2 (09:00→21:00)
[2022-03-04] MEDS: TIMOLOL MALEATE 0.5% OPHTH SOLN 5 ML OU SCH ×2 (09:00→22:13)
[2022-03-04] MEDS: BRIMONIDINE 0.15% OPHTH SOLN 5 ML OU SCH ×2 (09:00→22:13)
[2022-03-04] MEDS ORDERED: LIDOCAINE 1% MDV 20ML VIAL As Ordered ONE (14:04)
[2022-03-04] MEDS ORDERED: SODIUM CHLORIDE 0.9% INJ 10 ML SYR IV PRN (16:45)
[2022-03-04] MEDS: hydrALAZINE 20MG/ML 1ML VIAL (J0360 PER 20MG) IV SCH ×2 (17:20→22:33)
[2022-03-04] MEDS: SODIUM CHLORIDE 0.9% INJ 10 ML SYR IV SCH (17:58)
[2022-03-04] MEDS ORDERED: AMINO AC/ELECTROLYTE/DEX/CALC 2,566 ML IV SCH (18:00)
[2022-03-04] MEDS: traZODone 50 MG TAB PO SCH (21:00)
[2022-03-04] MEDS: CETIRIZINE (ZyrTEC) 10 MG TAB PO SCH (21:00)
[2022-03-04] MEDS: SIMVASTATIN 40 MG TAB PO SCH (21:00)
[2022-03-04] MEDS: LATANOPROST 0.005% OPHTH SOLN 2.5 ML OU SCH (22:13)
[2022-03-04] MEDS: ENOXAPARIN 40MG/0.4ML SYRINGE (J1650 PER 10MG) SC SCH (22:33)
[2022-03-05 04:00] VITALS: BP 135/63
[2022-03-05] MEDS: hydrALAZINE 20MG/ML 1ML VIAL (J0360 PER 20MG) IV SCH ×4 (04:33→22:00)
[2022-03-05] MEDS: SODIUM CHLORIDE 0.9% INJ 10 ML SYR IV SCH ×2 (05:26→18:48)
[2022-03-05] MEDS: INSULIN LISPRO (NovoLOG) PER UNIT SC SCH ×4 (05:26→17:33)
[2022-03-05] MEDS: PIPERACILLIN/TAZOBACTAM SOD 3.375 GM in D5W MINI-BAG PLUS 50 ML IV SCH ×3 (05:26→17:31)
[2022-03-05 06:34] LABS: BASO # 0.1 10^3/uL (0.0-0.2); BASO % 0.5 % (0.0-1.0); EOS # 0.1 10^3/uL (0.0-0.5); EOS % 0.9 % (0.0-3.0); HEMATOCRIT 31.5 % (36.0-47.0); HEMOGLOBIN 10.1 g/dl (12.0-15.5); LYMPH # 1.5 10^3/uL (1.5-5.0); LYMPH % 11.3 % (24.0-44.0); MEAN CORPUSCULAR HEMOGLOBIN 31.4 pg (27.0-33.0); MEAN CORPUSCULAR HGB CONC 32.1 g/dl (32.0-36.5); MEAN CORPUSCULAR VOLUME 97.8 fl (80.0-96.0); MONO # 1.1 10^3/uL (0.0-0.8); MONO % 8.2 % (2.0-8.0); NEUTROPHILS # 10.1 10^3/uL (1.5-8.5); NEUTROPHILS % 78.1 % (36.0-66.0); PLATELET COUNT, AUTOMATED 274 10^3/uL (150-450); RED BLOOD COUNT 3.22 10^6/uL (4.00-5.40)
[2022-03-05 06:54] LABS: BLOOD UREA NITROGEN 21 MG/DL (7-18); CALCIUM LEVEL 8.7 MG/DL (8.8-10.2); CARBON DIOXIDE LEVEL 28 MEQ/L (21-32); CHLORIDE LEVEL 104 MEQ/L (98-107); CREATININE FOR GFR 0.74 MG/DL (0.55-1.30); GLOMERULAR FILTRATION RATE > 60.0 (>39); GLUCOSE, FASTING 128 MG/DL (70-100); MAGNESIUM LEVEL 2.3 MG/DL (1.8-2.4); POTASSIUM SERUM 3.4 MEQ/L (3.5-5.1); SODIUM LEVEL 139 MEQ/L (136-145)
[2022-03-05] MEDS: NYSTATIN 100,000 UNITS/GM TOPICAL PWD 15 GM TOP SCH ×2 (08:09→21:59)
[2022-03-05] MEDS: PANTOPRAZOLE 40MG VIAL IV SCH (08:09)
[2022-03-05] MEDS: BRIMONIDINE 0.15% OPHTH SOLN 5 ML OU SCH ×2 (08:09→22:00)
[2022-03-05] MEDS: KCL 10MEQ/100ML SWI (KRUN) 10 MEQ in IV 1 EA IV SCH ×2 (08:09→09:55)
[2022-03-05] MEDS: TIMOLOL MALEATE 0.5% OPHTH SOLN 5 ML OU SCH ×2 (08:09→22:01)
[2022-03-05] MEDS: DOCUSATE SODIUM 100MG CAPSULE PO SCH ×2 (08:10→21:59)
[2022-03-05] MEDS: MULTIVITAMINS/MINERALS THERAP 1 TAB PO SCH (08:10)
[2022-03-05 08:25] VITALS: BP 135/56
[2022-03-05 11:12] VITALS: BP 174/74
[2022-03-05 12:03] VITALS: BP 127/60
[2022-03-05 16:05] VITALS: BP 142/66
[2022-03-05] MEDS ORDERED: MULTIVITAMIN -ADULT INJECTION 10 ML, ZINC/COPPER/MANGANESE/SELENIUM 1 ML in AMINO AC/EL... IV SCH (18:00)
[2022-03-05 20:00] VITALS: BP 151/80
[2022-03-05] MEDS: CETIRIZINE (ZyrTEC) 10 MG TAB PO SCH (21:59)
[2022-03-05] MEDS: ENOXAPARIN 40MG/0.4ML SYRINGE (J1650 PER 10MG) SC SCH (22:00)
[2022-03-05] MEDS: traZODone 50 MG TAB PO SCH (22:00)
[2022-03-05] MEDS: SIMVASTATIN 40 MG TAB PO SCH (22:00)
[2022-03-05] MEDS: LATANOPROST 0.005% OPHTH SOLN 2.5 ML OU SCH (22:01)
[2022-03-06] VITALS: BP 113/57
[2022-03-06] MEDS: PIPERACILLIN/TAZOBACTAM SOD 3.375 GM in D5W MINI-BAG PLUS 50 ML IV SCH ×4 (00:41→18:34)
[2022-03-06] MEDS: INSULIN LISPRO (NovoLOG) PER UNIT SC SCH ×7 (00:41→18:00)
[2022-03-06 04:00] VITALS: BP 158/70
[2022-03-06] MEDS: hydrALAZINE 20MG/ML 1ML VIAL (J0360 PER 20MG) IV SCH ×4 (04:00→21:57)
[2022-03-06] MEDS: SODIUM CHLORIDE 0.9% INJ 10 ML SYR IV SCH ×2 (06:03→18:34)
[2022-03-06 06:13] LABS: BASO # 0.1 10^3/uL (0.0-0.2); BASO % 0.6 % (0.0-1.0); EOS # 0.2 10^3/uL (0.0-0.5); EOS % 1.4 % (0.0-3.0); HEMATOCRIT 30.1 % (36.0-47.0); HEMOGLOBIN 9.8 g/dl (12.0-15.5); LYMPH % 15.7 % (24.0-44.0); MEAN CORPUSCULAR HEMOGLOBIN 31.6 pg (27.0-33.0); MEAN CORPUSCULAR HGB CONC 32.6 g/dl (32.0-36.5); MEAN CORPUSCULAR VOLUME 97.1 fl (80.0-96.0); MONO # 1.1 10^3/uL (0.0-0.8); MONO % 8.9 % (2.0-8.0); NEUTROPHILS % 72.1 % (36.0-66.0); PLATELET COUNT, AUTOMATED 273 10^3/uL (150-450); WHITE BLOOD COUNT 12.5 10^3/uL (4.0-10.0)
[2022-03-06 06:37] LABS: BLOOD UREA NITROGEN 25 MG/DL (7-18); CALCIUM LEVEL 8.3 MG/DL (8.8-10.2); CARBON DIOXIDE LEVEL 31 MEQ/L (21-32); CHLORIDE LEVEL 102 MEQ/L (98-107); CREATININE FOR GFR 0.78 MG/DL (0.55-1.30); GLOMERULAR FILTRATION RATE > 60.0 (>39); GLUCOSE, FASTING 121 MG/DL (70-100); MAGNESIUM LEVEL 2.1 MG/DL (1.8-2.4); POTASSIUM SERUM 3.4 MEQ/L (3.5-5.1); SODIUM LEVEL 137 MEQ/L (136-145)
[2022-03-06 07:14] VITALS: BP 127/54
[2022-03-06] MEDS: KCL 20MEQ IN 100ML SWI (KRUN) 20 MEQ in IV 1 EA IV SCH ×4 (08:07→09:19)
[2022-03-06] MEDS: TIMOLOL MALEATE 0.5% OPHTH SOLN 5 ML OU SCH ×2 (08:08→20:14)
[2022-03-06] MEDS: PANTOPRAZOLE 40MG VIAL IV SCH (08:08)
[2022-03-06] MEDS: BRIMONIDINE 0.15% OPHTH SOLN 5 ML OU SCH ×2 (08:08→20:13)
[2022-03-06] MEDS: MULTIVITAMINS/MINERALS THERAP 1 TAB PO SCH (08:14)
[2022-03-06] MEDS: DOCUSATE SODIUM 100MG CAPSULE PO SCH (09:00)
[2022-03-06 11:23] VITALS: BP 127/61
[2022-03-06 16:20] VITALS: BP 146/76
[2022-03-06] MEDS ORDERED: AMINO AC/ELECTROLYTE/DEX/CALC 2,566 ML IV SCH (18:00)
[2022-03-06 20:00] VITALS: BP 135/63
[2022-03-06] MEDS ORDERED: GLYCERIN ADULT SUPP PR ONE (20:00)
[2022-03-06] MEDS: ENOXAPARIN 40MG/0.4ML SYRINGE (J1650 PER 10MG) SC SCH (20:13)
[2022-03-06] MEDS: LATANOPROST 0.005% OPHTH SOLN 2.5 ML OU SCH (20:14)
[2022-03-07] MEDS: PIPERACILLIN/TAZOBACTAM SOD 3.375 GM in D5W MINI-BAG PLUS 50 ML IV SCH ×4 (00:13→18:10)
[2022-03-07] MEDS: INSULIN LISPRO (NovoLOG) PER UNIT SC SCH ×4 (00:13→17:56)
[2022-03-07 00:14] VITALS: BP 193/81
[2022-03-07] MEDS: hydrALAZINE 20MG/ML 1ML VIAL (J0360 PER 20MG) IV SCH ×4 (00:14→21:01)
[2022-03-07 01:11] VITALS: BP 116/56
[2022-03-07] MEDS: SODIUM CHLORIDE 0.9% INJ 10 ML SYR IV SCH ×2 (05:20→18:09)
[2022-03-07 05:33] LABS: BASO # 0.1 10^3/uL (0.0-0.2); BASO % 0.5 % (0.0-1.0); EOS # 0.2 10^3/uL (0.0-0.5); EOS % 1.6 % (0.0-3.0); HEMATOCRIT 31.1 % (36.0-47.0); HEMOGLOBIN 10.1 g/dl (12.0-15.5); LYMPH # 1.8 10^3/uL (1.5-5.0); LYMPH % 16.9 % (24.0-44.0); MEAN CORPUSCULAR HEMOGLOBIN 31.8 pg (27.0-33.0); MEAN CORPUSCULAR HGB CONC 32.5 g/dl (32.0-36.5); MEAN CORPUSCULAR VOLUME 97.8 fl (80.0-96.0); MONO # 1.2 10^3/uL (0.0-0.8); MONO % 10.9 % (2.0-8.0); NEUTROPHILS # 7.3 10^3/uL (1.5-8.5); NEUTROPHILS % 68.6 % (36.0-66.0); PLATELET COUNT, AUTOMATED 275 10^3/uL (150-450); RED BLOOD COUNT 3.18 10^6/uL (4.00-5.40); WHITE BLOOD COUNT 10.6 10^3/uL (4.0-10.0)
[2022-03-07 06:18] LABS: BLOOD UREA NITROGEN 22 MG/DL (7-18); CALCIUM LEVEL 8.3 MG/DL (8.8-10.2); CARBON DIOXIDE LEVEL 28 MEQ/L (21-32); CHLORIDE LEVEL 106 MEQ/L (98-107); CREATININE FOR GFR 0.72 MG/DL (0.55-1.30); GLOMERULAR FILTRATION RATE > 60.0 (>39); GLUCOSE, FASTING 118 MG/DL (70-100); MAGNESIUM LEVEL 2.1 MG/DL (1.8-2.4); POTASSIUM SERUM 4.1 MEQ/L (3.5-5.1); SODIUM LEVEL 140 MEQ/L (136-145)
[2022-03-07 07:49] VITALS: BP 142/69
[2022-03-07] MEDS: NYSTATIN 100,000 UNITS/GM TOPICAL PWD 15 GM TOP SCH (09:33)
[2022-03-07] MEDS: BRIMONIDINE 0.15% OPHTH SOLN 5 ML OU SCH ×2 (09:33→21:08)
[2022-03-07] MEDS: PANTOPRAZOLE 40MG VIAL IV SCH (09:44)
[2022-03-07] MEDS: TIMOLOL MALEATE 0.5% OPHTH SOLN 5 ML OU SCH ×2 (09:45→21:09)
[2022-03-07 11:57] VITALS: BP 169/70
[2022-03-07 16:32] VITALS: BP 162/65
[2022-03-07] MEDS ORDERED: AMINO AC/ELECTROLYTE/DEX/CALC 2,566 ML IV SCH (18:00)
[2022-03-07 20:00] VITALS: BP 134/65
[2022-03-07] MEDS: ENOXAPARIN 40MG/0.4ML SYRINGE (J1650 PER 10MG) SC SCH (21:08)
[2022-03-07] MEDS: LATANOPROST 0.005% OPHTH SOLN 2.5 ML OU SCH (21:09)
[2022-03-08] VITALS (7 sets, daily range): BP systolic 131–176; BP diastolic 56–78
[2022-03-08] MEDS: INSULIN LISPRO (NovoLOG) PER UNIT SC SCH ×4 (00:43→18:00)
[2022-03-08] MEDS: PIPERACILLIN/TAZOBACTAM SOD 3.375 GM in D5W MINI-BAG PLUS 50 ML IV SCH ×4 (00:43→18:29)
[2022-03-08] MEDS: hydrALAZINE 20MG/ML 1ML VIAL (J0360 PER 20MG) IV SCH ×4 (04:19→21:40)
[2022-03-08] MEDS: SODIUM CHLORIDE 0.9% INJ 10 ML SYR IV SCH ×2 (05:30→18:30)
[2022-03-08 05:35] LABS: BASO # 0.1 10^3/uL (0.0-0.2); BASO % 0.6 % (0.0-1.0); EOS # 0.2 10^3/uL (0.0-0.5); EOS % 1.6 % (0.0-3.0); HEMATOCRIT 31.1 % (36.0-47.0); LYMPH # 1.7 10^3/uL (1.5-5.0); LYMPH % 17.4 % (24.0-44.0); MEAN CORPUSCULAR HEMOGLOBIN 31.6 pg (27.0-33.0); MEAN CORPUSCULAR HGB CONC 32.2 g/dl (32.0-36.5); MEAN CORPUSCULAR VOLUME 98.4 fl (80.0-96.0); MONO % 10.1 % (2.0-8.0); NEUTROPHILS # 6.9 10^3/uL (1.5-8.5); NEUTROPHILS % 68.9 % (36.0-66.0); PLATELET COUNT, AUTOMATED 278 10^3/uL (150-450); RED BLOOD COUNT 3.16 10^6/uL (4.00-5.40)
[2022-03-08 06:08] LABS: BLOOD UREA NITROGEN 20 MG/DL (7-18); CALCIUM LEVEL 8.1 MG/DL (8.8-10.2); CARBON DIOXIDE LEVEL 28 MEQ/L (21-32); CHLORIDE LEVEL 106 MEQ/L (98-107); CREATININE FOR GFR 0.69 MG/DL (0.55-1.30); GLOMERULAR FILTRATION RATE > 60.0 (>39); GLUCOSE, FASTING 111 MG/DL (70-100); MAGNESIUM LEVEL 1.9 MG/DL (1.8-2.4); POTASSIUM SERUM 4.3 MEQ/L (3.5-5.1); SODIUM LEVEL 141 MEQ/L (136-145)
[2022-03-08] MEDS: TIMOLOL MALEATE 0.5% OPHTH SOLN 5 ML OU SCH ×2 (08:06→20:14)
[2022-03-08] MEDS: PANTOPRAZOLE 40MG VIAL IV SCH (08:06)
[2022-03-08] MEDS: BRIMONIDINE 0.15% OPHTH SOLN 5 ML OU SCH ×2 (08:06→20:14)
[2022-03-08] MEDS: NYSTATIN 100,000 UNITS/GM TOPICAL PWD 15 GM TOP SCH (08:07)
[2022-03-08] MEDS ORDERED: AMINO AC/ELECTROLYTE/DEX/CALC 2,566 ML IV SCH (18:00)
[2022-03-08] MEDS: ENOXAPARIN 40MG/0.4ML SYRINGE (J1650 PER 10MG) SC SCH (20:14)
[2022-03-08] MEDS: LATANOPROST 0.005% OPHTH SOLN 2.5 ML OU SCH (20:15)
[2022-03-09] VITALS (9 sets, daily range): BP systolic 117–171; BP diastolic 64–72
[2022-03-09] MEDS: PIPERACILLIN/TAZOBACTAM SOD 3.375 GM in D5W MINI-BAG PLUS 50 ML IV SCH ×4 (00:08→18:17)
[2022-03-09] MEDS: INSULIN LISPRO (NovoLOG) PER UNIT SC SCH ×4 (00:08→18:16)
[2022-03-09] MEDS: hydrALAZINE 20MG/ML 1ML VIAL (J0360 PER 20MG) IV SCH ×4 (04:15→21:48)
[2022-03-09 05:17] LABS: BASO # 0.1 10^3/uL (0.0-0.2); BASO % 0.7 % (0.0-1.0); EOS # 0.2 10^3/uL (0.0-0.5); EOS % 1.6 % (0.0-3.0); HEMATOCRIT 31.4 % (36.0-47.0); HEMOGLOBIN 10.3 g/dl (12.0-15.5); LYMPH # 1.8 10^3/uL (1.5-5.0); LYMPH % 16.7 % (24.0-44.0); MEAN CORPUSCULAR HEMOGLOBIN 31.9 pg (27.0-33.0); MEAN CORPUSCULAR HGB CONC 32.8 g/dl (32.0-36.5); MEAN CORPUSCULAR VOLUME 97.2 fl (80.0-96.0); MONO # 0.9 10^3/uL (0.0-0.8); MONO % 8.8 % (2.0-8.0); NEUTROPHILS # 7.6 10^3/uL (1.5-8.5); NEUTROPHILS % 70.8 % (36.0-66.0); PLATELET COUNT, AUTOMATED 270 10^3/uL (150-450); RED BLOOD COUNT 3.23 10^6/uL (4.00-5.40); WHITE BLOOD COUNT 10.7 10^3/uL (4.0-10.0)
[2022-03-09] MEDS: SODIUM CHLORIDE 0.9% INJ 10 ML SYR IV SCH ×2 (05:29→20:43)
[2022-03-09 05:59] LABS: BLOOD UREA NITROGEN 19 MG/DL (7-18); CALCIUM LEVEL 8.6 MG/DL (8.8-10.2); CARBON DIOXIDE LEVEL 30 MEQ/L (21-32); CHLORIDE LEVEL 105 MEQ/L (98-107); GLOMERULAR FILTRATION RATE > 60.0 (>39); GLUCOSE, FASTING 134 MG/DL (70-100); POTASSIUM SERUM 4.3 MEQ/L (3.5-5.1); SODIUM LEVEL 138 MEQ/L (136-145)
[2022-03-09] MEDS: TIMOLOL MALEATE 0.5% OPHTH SOLN 5 ML OU SCH (08:25)
[2022-03-09] MEDS: BRIMONIDINE 0.15% OPHTH SOLN 5 ML OU SCH ×2 (08:25→20:42)
[2022-03-09] MEDS: NYSTATIN 100,000 UNITS/GM TOPICAL PWD 15 GM TOP SCH (08:25)
[2022-03-09] MEDS: PANTOPRAZOLE 40MG VIAL IV SCH (08:25)
[2022-03-09] MEDS ORDERED: fentaNYL 100 MCG/2 ML INJECTION As Ordered ONE (11:38)
[2022-03-09] MEDS ORDERED: MIDAZOLAM INJ 2MG/2ML VIAL (J2250 PER 1MG) As Ordered ONE (11:38)
[2022-03-09] MEDS ORDERED: LIDOCAINE 2% 100MG/5ML SDV (FOR ANES.) As Ordered ONE (11:39)
[2022-03-09] MEDS ORDERED: propofoL 200 MG/20 ML VIAL As Ordered ONE (11:39)
[2022-03-09] MEDS ORDERED: ZOSYN 3.375GM VIAL As Ordered ONE (12:08)
[2022-03-09] MEDS ORDERED: ATROPINE SULF 0.4 MG/ML 1ML VIAL (J0461) As Ordered ONE (12:21)
[2022-03-09 15:51] LABS: HEMATOCRIT 33.3 % (36.0-47.0); HEMOGLOBIN 10.9 g/dl (12.0-15.5); MEAN CORPUSCULAR HEMOGLOBIN 31.9 pg (27.0-33.0); MEAN CORPUSCULAR HGB CONC 32.7 g/dl (32.0-36.5); MEAN CORPUSCULAR VOLUME 97.4 fl (80.0-96.0); PLATELET COUNT, AUTOMATED 313 10^3/uL (150-450); RED BLOOD COUNT 3.42 10^6/uL (4.00-5.40); WHITE BLOOD COUNT 9.6 10^3/uL (4.0-10.0)
[2022-03-09 16:50] LABS: ALT/SGPT 26 U/L (12-78); BILIRUBIN,TOTAL 0.3 MG/DL (0.2-1.0); BLOOD UREA NITROGEN 19 MG/DL (7-18); CALCIUM LEVEL 8.9 MG/DL (8.8-10.2); CARBON DIOXIDE LEVEL 28 MEQ/L (21-32); CHLORIDE LEVEL 100 MEQ/L (98-107); CREATININE FOR GFR 0.63 MG/DL (0.55-1.30); GLOMERULAR FILTRATION RATE > 60.0 (>39); GLUCOSE, FASTING 116 MG/DL (70-100); MAGNESIUM LEVEL 1.9 MG/DL (1.8-2.4); POTASSIUM SERUM 4.2 MEQ/L (3.5-5.1); SODIUM LEVEL 135 MEQ/L (136-145); TOTAL PROTEIN 5.7 GM/DL (6.4-8.2)
[2022-03-09] MEDS ORDERED: INSULIN LISPRO (NovoLOG) PER UNIT SC SCH (18:00)
[2022-03-09] MEDS ORDERED: AMINO AC/ELECTROLYTE/DEX/CALC 2,566 ML IV SCH (18:00)
[2022-03-09] MEDS: ENOXAPARIN 40MG/0.4ML SYRINGE (J1650 PER 10MG) SC SCH (20:42)
[2022-03-09] MEDS: LATANOPROST 0.005% OPHTH SOLN 2.5 ML OU SCH (20:42)
[2022-03-10] VITALS: BP 148/62
[2022-03-10] MEDS: INSULIN LISPRO (NovoLOG) PER UNIT SC SCH ×3 (00:25→12:28)
[2022-03-10 04:00] VITALS: BP 153/66
[2022-03-10] MEDS: hydrALAZINE 20MG/ML 1ML VIAL (J0360 PER 20MG) IV SCH (04:59)
[2022-03-10] MEDS: SODIUM CHLORIDE 0.9% INJ 10 ML SYR IV SCH ×2 (06:10→09:13)
[2022-03-10 07:59] VITALS: BP 160/72
[2022-03-10 08:32] LABS: HEMATOCRIT 34.3 % (36.0-47.0); HEMOGLOBIN 10.9 g/dl (12.0-15.5); MEAN CORPUSCULAR HEMOGLOBIN 30.4 pg (27.0-33.0); MEAN CORPUSCULAR HGB CONC 31.8 g/dl (32.0-36.5); MEAN CORPUSCULAR VOLUME 95.8 fl (80.0-96.0); PLATELET COUNT, AUTOMATED 335 10^3/uL (150-450); RED BLOOD COUNT 3.58 10^6/uL (4.00-5.40); WHITE BLOOD COUNT 13.1 10^3/uL (4.0-10.0)
[2022-03-10 08:48] LABS: BLOOD UREA NITROGEN 22 MG/DL (7-18); CARBON DIOXIDE LEVEL 27 MEQ/L (21-32); CHLORIDE LEVEL 105 MEQ/L (98-107); CREATININE FOR GFR 0.79 MG/DL (0.55-1.30); GLOMERULAR FILTRATION RATE > 60.0 (>39); GLUCOSE, FASTING 105 MG/DL (70-100); POTASSIUM SERUM 4.8 MEQ/L (3.5-5.1); SODIUM LEVEL 139 MEQ/L (136-145)
[2022-03-10] MEDS ORDERED: MULTIVITAMINS/MINERALS THERAP 1 TAB PEG SCH (09:00)
[2022-03-10] MEDS ORDERED: MULTIVITAMIN/MINERALS LIQUID 15ML ORAL SYRINGE PEG SCH (09:00)
[2022-03-10] MEDS ORDERED: MOM 30ML SUSPENSION UDC PEG PRN (09:00)
[2022-03-10] MEDS ORDERED: lisinopriL 5 MG TAB PEG SCH (09:00)
[2022-03-10] MEDS ORDERED: DOCUSATE SOD LIQ 100MG/10ML UDC PEG SCH (09:00)
[2022-03-10] MEDS: BRIMONIDINE 0.15% OPHTH SOLN 5 ML OU SCH (09:12)
[2022-03-10] MEDS: NYSTATIN 100,000 UNITS/GM TOPICAL PWD 15 GM TOP SCH (09:12)
[2022-03-10] MEDS: PANTOPRAZOLE 40MG VIAL IV SCH (09:13)
[2022-03-10] MEDS ORDERED: METF500T13 PEG (10:08)
[2022-03-10] MEDS ORDERED: TRAZ-252 PEG (10:08)
[2022-03-10] MEDS ORDERED: MULT1TAB7 PEG (10:08)
[2022-03-10] MEDS ORDERED: ZOCO40TA PEG (10:08)
[2022-03-10] MEDS ORDERED: LISI5TAB11 PEG (10:08)
[2022-03-10] MEDS ORDERED: CETI-24 PEG (10:08)
[2022-03-10] MEDS ORDERED: CALC600C3 PEG (10:12)
[2022-03-10] MEDS ORDERED: COLA100C5 PEG (10:12)
[2022-03-10] MEDS ORDERED: MILKSUS3 PEG (10:12)
[2022-03-10] MEDS ORDERED: ACETAMINOPHEN TAB 650MG DOSE (2X325MG) PEG PRN (10:25)
[2022-03-10 11:01] VITALS: BP 160/72
[2022-03-10 11:47] VITALS: BP 166/76
[2022-03-10] MEDS ORDERED: DOCU5LIQ PEG (13:32)
[2022-03-10] MEDS ORDERED: [UNRECOGNIZED DRUG - CODE] PEG (13:32)
[2022-03-10] MEDS ORDERED: NEOSPORIN OINT 0.9 GM PKT TOP ONE (14:20)
[2022-03-10 16:00] VITALS: BP 157/70
[2022-03-10] MEDS ORDERED: CETIRIZINE (ZyrTEC) 10 MG TAB PEG SCH (21:00)
[2022-03-10] MEDS ORDERED: SIMVASTATIN 40 MG TAB PEG SCH (21:00)
[2022-03-10] MEDS ORDERED: traZODone 50 MG TAB PEG SCH (21:00)
[2022-03-11] MEDS ORDERED: AMOX875T2 PEG (23:33)
== END 2022-03-10 17:15 | disposition home or self-care (01) | DRG 178 ==
LOC: M ED 04:38 → M ED INP 04:39 → ENRESERV 16:32 → M PCU 17:40 → OBSVTOIN 03-03 12:04 → M PCU 03-09 15:23
PROVIDERS: ADMIT Internal Medicine; ATTEND Internal Medicine
PROC: B246ZZZ Ultrasonography of Right and Left Heart (ICD-10-PCS; 2022-03-02)
PROC: 02HV33Z Insertion of Infusion Device into Superior Vena Cava, Percutaneous Approach (ICD-10-PCS; principal; 2022-03-04 16:00)
PROC: 0DH63UZ Insertion of Feeding Device into Stomach, Percutaneous Approach (ICD-10-PCS; 2022-03-09)
DX: J69.0 Pneumonitis due to inhalation of food and vomit (principal); F72 Severe intellectual disabilities; K56.7 Ileus, unspecified; E78.5 Hyperlipidemia, unspecified; M81.0 Age-related osteoporosis without current pathological fracture; I10 Essential (primary) hypertension; E11.9 Type 2 diabetes mellitus without complications; M19.90 Unspecified osteoarthritis, unspecified site; Z90.79 Acquired absence of other genital organ(s); R09.02 Hypoxemia; I25.10 Atherosclerotic heart disease of native coronary artery without angina pectoris; G47.00 Insomnia, unspecified; Z79.84 Long term (current) use of oral hypoglycemic drugs; Z79.899 Other long term (current) drug therapy; G40.909 Epilepsy, unspecified, not intractable, without status epilepticus; Z20.822 Contact with and (suspected) exposure to COVID-19

== ENCOUNTER 2022-03-11 16:58 | Emergency (ER) | payer MEDICARE, MEDICAID ==
[~2022-03-11] VITALS: Ht 157.5 cm; Wt 75.0 kg
[~2022-03-11 16:58] MED LIST changes: +CALC600C3 PEG; +CETI-24 PEG; +COLA100C5 PEG; +DOCU5LIQ PEG; +LISI5TAB11 PEG; +METF500T13 PEG; +MILKSUS3 PEG; +MULT1TAB7 PEG; +NYST1POW9 TOP; +TIMO0.5S29 OU; +TRAZ-252 PEG; +ZOCO40TA PEG; +[UNRECOGNIZED DRUG - CODE] PEG
[2022-03-11 20:21] LABS: BASO # 0.1 10^3/uL (0.0-0.2); BASO % 0.5 % (0.0-1.0); EOS # 0.1 10^3/uL (0.0-0.5); EOS % 0.7 % (0.0-3.0); HEMATOCRIT 36.1 % (36.0-47.0); HEMOGLOBIN 11.3 g/dl (12.0-15.5); LYMPH # 1.7 10^3/uL (1.5-5.0); LYMPH % 11.7 % (24.0-44.0); MEAN CORPUSCULAR HEMOGLOBIN 30.7 pg (27.0-33.0); MEAN CORPUSCULAR HGB CONC 31.3 g/dl (32.0-36.5); MEAN CORPUSCULAR VOLUME 98.1 fl (80.0-96.0); MONO # 1.5 10^3/uL (0.0-0.8); MONO % 10.1 % (2.0-8.0); NEUTROPHILS # 11.1 10^3/uL (1.5-8.5); NEUTROPHILS % 75.5 % (36.0-66.0); PLATELET COUNT, AUTOMATED 308 10^3/uL (150-450); RED BLOOD COUNT 3.68 10^6/uL (4.00-5.40); WHITE BLOOD COUNT 14.7 10^3/uL (4.0-10.0)
[2022-03-11 20:57] LABS: ALBUMIN 2.4 GM/DL (3.2-5.2); ALT/SGPT 54 U/L (12-78); BILIRUBIN,TOTAL 0.3 MG/DL (0.2-1.0); BLOOD UREA NITROGEN 24 MG/DL (7-18); CALCIUM LEVEL 9.3 MG/DL (8.8-10.2); CARBON DIOXIDE LEVEL 26 MEQ/L (21-32); CHLORIDE LEVEL 105 MEQ/L (98-107); CREATININE FOR GFR 0.62 MG/DL (0.55-1.30); GLOMERULAR FILTRATION RATE > 60.0 (>39); GLUCOSE, FASTING 98 MG/DL (70-100); LIPASE 207 U/L (73-393); POTASSIUM SERUM 4.7 MEQ/L (3.5-5.1); SODIUM LEVEL 139 MEQ/L (136-145); TOTAL PROTEIN 6.3 GM/DL (6.4-8.2)
[2022-03-11 21:05] LABS: ERYTHROCYTE SEDIMENTATION RATE 106 mm/hr (0-30)
[2022-03-11 22:28] LABS: BILIRUBIN, URINE MANUAL NEGATIVE (NEGATIVE); GLUCOSE, URINE (UA) MANUAL NEGATIVE (NEGATIVE); KETONE, URINE MANUAL NEGATIVE (NEGATIVE); UROBILINOGEN, URINE MANUAL 1 MG mg/dl (NORMAL)
[2022-03-11 22:36] LABS: BACTERIA, URINE NONE SEEN; RBC, URINE 0-1 /hpf (0-3); SQUAMOUS EPITHELIAL CELL URINE SMALL AMOUNT /hpf (SMALL AMT)
[2022-03-11 22:37] LABS: AMORPHOUS SEDIMENT, URINE SMALL AMOUNT (NEGATIVE); HYALINE CAST, URINE 0-1 /lpf (0-1); MUCUS, URINE SMALL AMOUNT (NEGATIVE)
[2022-03-11 22:53] VITALS: BP 164/65
[2022-03-11] MEDS ORDERED: AUGMENTIN 875 MG TAB PEG ONE (23:30)
[2022-03-11] MEDS ORDERED: AMOX875T2 PEG (23:33)
== END 2022-03-12 00:48 | disposition home or self-care (01) ==
LOC: M ED 16:58
DX: J18.9 Pneumonia, unspecified organism (principal); E11.9 Type 2 diabetes mellitus without complications; I10 Essential (primary) hypertension; E78.5 Hyperlipidemia, unspecified; K59.00 Constipation, unspecified; Z79.899 Other long term (current) drug therapy; Z79.84 Long term (current) use of oral hypoglycemic drugs

== ENCOUNTER 2022-03-19 09:24 | Emergency (ER) | payer MEDICARE, MEDICAID ==
[~2022-03-19] VITALS: Ht 152.4 cm; Wt 75.0 kg
[~2022-03-19 09:24] MED LIST changes: +AMOX875T2 PEG
[2022-03-19 09:37] VITALS: BP 163/68
[2022-03-19] MEDS ORDERED: GASTROGRAFIN SOLUTION 30ML (Q9963) GT ONE (13:15)
[2022-03-19] MEDS ORDERED: SILVER SULFADIAZINE 1% CR 50 GM JAR TOP ONE (14:25)
[2022-03-19] MEDS ORDERED: ONDANSETRON 4MG TAB GT ONE (14:35)
[2022-03-19] MEDS ORDERED: SILV40CR TOP (17:19)
== END 2022-03-19 19:32 | disposition home or self-care (01) ==
LOC: M ED 09:24 → EDBD 09:24 → M ED 19:32
DX: K94.29 Other complications of gastrostomy (principal); E11.9 Type 2 diabetes mellitus without complications; I10 Essential (primary) hypertension; E78.5 Hyperlipidemia, unspecified; Z79.899 Other long term (current) drug therapy; Z79.84 Long term (current) use of oral hypoglycemic drugs
CPT/HCPCS: 74018; 99283; Q9963

== ENCOUNTER 2022-05-25 13:00 | Emergency (ER) | payer MEDICARE, MEDICAID ==
[~2022-05-25] VITALS: Ht 157.5 cm; Wt 71.9 kg
[~2022-05-25 13:00] MED LIST changes: +SILV40CR TOP
[2022-05-25 18:47] VITALS: BP 172/70
== END 2022-05-25 19:04 | disposition home or self-care (01) ==
LOC: M ED 13:00
DX: K94.23 Gastrostomy malfunction (principal); E11.9 Type 2 diabetes mellitus without complications; Z79.51 Long term (current) use of inhaled steroids; Z79.84 Long term (current) use of oral hypoglycemic drugs; Z79.899 Other long term (current) drug therapy

== ENCOUNTER 2022-06-09 04:16 | Observation (INO) | payer MEDICARE, MEDICAID ==
[~2022-06-09] VITALS: Ht 157.5 cm; Wt 74.2 kg
[2022-06-09 04:44] LABS: BASO # 0.1 10^3/uL (0.0-0.2); BASO % 0.5 % (0.0-1.0); EOS # 0.4 10^3/uL (0.0-0.5); EOS % 2.6 % (0.0-3.0); HEMATOCRIT 39.2 % (36.0-47.0); HEMOGLOBIN 12.3 g/dl (12.0-15.5); LYMPH # 1.2 10^3/uL (1.5-5.0); LYMPH % 8.3 % (24.0-44.0); MEAN CORPUSCULAR HEMOGLOBIN 29.1 pg (27.0-33.0); MEAN CORPUSCULAR HGB CONC 31.4 g/dl (32.0-36.5); MEAN CORPUSCULAR VOLUME 92.9 fl (80.0-96.0); MONO # 1.3 10^3/uL (0.0-0.8); MONO % 8.4 % (2.0-8.0); NEUTROPHILS # 11.8 10^3/uL (1.5-8.5); NEUTROPHILS % 79.3 % (36.0-66.0); PLATELET COUNT, AUTOMATED 295 10^3/uL (150-450); RED BLOOD COUNT 4.22 10^6/uL (4.00-5.40); WHITE BLOOD COUNT 14.9 10^3/uL (4.0-10.0)
[2022-06-09 04:52] LABS: VENOUS HCO3 30.2 MEQ/L (23.0-27.0); VENOUS PARTIAL PRESSURE CO2 49.7 mmHg (38.0-50.0); VENOUS PARTIAL PRESSURE O2 51.9 mmHg (30.0-50.0); VENOUS PH 7.402 UNITS (7.330-7.430); VENOUS TOTAL CO2 31.8 MEQ/L (24.0-28.0)
[2022-06-09 04:53] LABS: VENOUS BASE EXCESS 4.5 (-2.0-2.0); VENOUS STANDARD HCO3 28.2 MEQ/L
[2022-06-09 04:55] LABS: INR 0.91; PROTHROMBIN TIME 12.4 SECONDS (12.5-14.5)
[2022-06-09 05:20] LABS: MB/CK RELATIVE INDEX 1.27 (< OR =4)
[2022-06-09 05:28] LABS: ALBUMIN 3.2 GM/DL (3.2-5.2); ALT/SGPT 18 U/L (12-78); BILIRUBIN,DIRECT < 0.1 MG/DL (0.0-0.2); BILIRUBIN,TOTAL 0.3 MG/DL (0.2-1.0); BLOOD UREA NITROGEN 28 MG/DL (7-18); CALCIUM LEVEL 9.3 MG/DL (8.8-10.2); CARBON DIOXIDE LEVEL 28 MEQ/L (21-32); CHLORIDE LEVEL 102 MEQ/L (98-107); GLOMERULAR FILTRATION RATE > 60.0 (>39); GLUCOSE, FASTING 115 MG/DL (70-100); NT-PRO BNP 295 PG/ML (<450); POTASSIUM SERUM 4.8 MEQ/L (3.5-5.1); SODIUM LEVEL 137 MEQ/L (136-145); TOTAL PROTEIN 7.3 GM/DL (6.4-8.2)
[2022-06-09] MEDS ORDERED: PIPERACILLIN/TAZOBACTAM SOD 4.5 GM in D5W MINI-BAG PLUS 50 ML IV ONE (06:10)
[2022-06-09] MEDS ORDERED: IPRATROPIUM 0.5MG/ALBUTEROL 2.5MG INH SOL UD 3ML (DUONEB) NEB ONE ×2 (06:35→09:55)
[2022-06-09 06:58] LABS: CK-MB VALUE MASS 1.1 NG/ML (<3.6); MB/CK RELATIVE INDEX 1.86 (< OR =4)
[2022-06-09] MEDS ORDERED: PRED20TA PO (07:23)
[2022-06-09] MEDS ORDERED: SIMV40TA20 PEG (08:30)
[2022-06-09] MEDS ORDERED: CETI5SOL3 PEG (08:30)
[2022-06-09] MEDS ORDERED: TRAZ-252 PEG (08:30)
[2022-06-09] MEDS ORDERED: METF500S3 PEG (08:30)
[2022-06-09] MEDS ORDERED: ZINC28PA TOP ×2 (08:30)
[2022-06-09] MEDS ORDERED: LISI10TA22 PEG (08:30)
[2022-06-09] MEDS ORDERED: BPRO1LIQ PO (08:30)
[2022-06-09] MEDS ORDERED: ALBU2.5V10 NEB (08:30)
[2022-06-09] MEDS ORDERED: MILKSUS3 PO (08:30)
[2022-06-09] MEDS ORDERED: DOCU5LIQ PEG (08:50)
[2022-06-09] MEDS ORDERED: CALC200T15 PEG (08:50)
[2022-06-09] MEDS ORDERED: BABY400D2 PEG (08:50)
[2022-06-09] MEDS: DIAPER RELIEF PASTE (DESITIN) 60GM TOP SCH ×2 (09:00→20:12)
[2022-06-09] MEDS: DOCUSATE SOD LIQ 100MG/10ML UDC PEG SCH ×2 (09:00→20:12)
[2022-06-09] MEDS ORDERED: HOME MED LIST COMPLETE! XX SCH (09:10)
[2022-06-09] MEDS ORDERED: ACETAMINOPHEN TAB 650MG DOSE (2X325MG) PO PRN (10:10)
[2022-06-09] MEDS ORDERED: MOM 30ML SUSPENSION UDC PO PRN (10:10)
[2022-06-09] MEDS ORDERED: ONDANSETRON 4MG 2ML VIAL IV PRN (10:10)
[2022-06-09] MEDS ORDERED: ALBUTEROL SULFATE 2.5 MG/0.5 ML INH NEB SOLN NEB PRN (10:10)
[2022-06-09] MEDS ORDERED: DIAPER RELIEF PASTE (DESITIN) 60GM TOP PRN (10:20)
[2022-06-09] MEDS: NS 1,000 ML IV SCH ×2 (10:47→20:14)
[2022-06-09] MEDS ORDERED: GLUCAGON INJ 1MG VIAL SC PRN (11:00)
[2022-06-09] MEDS ORDERED: DEXTROSE 50% 50 ML SYRINGE IV PRN (11:00)
[2022-06-09] MEDS ORDERED: GLUCOSE 4GM CHEW TABLET PO PRN (11:00)
[2022-06-09] MEDS: INSULIN LISPRO (NovoLOG) PER UNIT SC SCH ×2 (12:00→17:25)
[2022-06-09] MEDS: IPRATROPIUM 0.5MG/ALBUTEROL 2.5MG INH SOL UD 3ML (DUONEB) NEB SCH ×2 (12:51→20:00)
[2022-06-09 15:20] VITALS: BP 124/63
[2022-06-09 20:04] VITALS: BP 129/73
[2022-06-09] MEDS: guaiFENesin/CODEINE SYRUP 5 ML UDC GT PRN (20:12)
[2022-06-09 20:13] VITALS: BP 129/73
[2022-06-09] MEDS ORDERED: LATANOPROST 0.005% OPHTH SOLN 2.5 ML OU SCH (21:00)
[2022-06-09] MEDS ORDERED: SIMVASTATIN 40 MG TAB PEG SCH (21:00)
[2022-06-09] MEDS ORDERED: CETIRIZINE (ZyrTEC) 5 MG/5 ML UDC DYE FREE PEG SCH (21:00)
[2022-06-09] MEDS ORDERED: traZODone 50 MG TAB PEG SCH (21:00)
[2022-06-10] MEDS: guaiFENesin/CODEINE SYRUP 5 ML UDC GT PRN (02:58)
[2022-06-10] MEDS: NS 1,000 ML IV SCH (04:30)
[2022-06-10 05:58] LABS: HEMATOCRIT 33.6 % (36.0-47.0); MEAN CORPUSCULAR HEMOGLOBIN 29.4 pg (27.0-33.0); MEAN CORPUSCULAR HGB CONC 29.8 g/dl (32.0-36.5); MEAN CORPUSCULAR VOLUME 98.8 fl (80.0-96.0); PLATELET COUNT, AUTOMATED 173 10^3/uL (150-450); WHITE BLOOD COUNT 11.2 10^3/uL (4.0-10.0)
[2022-06-10 06:00] VITALS: BP 152/83
[2022-06-10] MEDS: INSULIN LISPRO (NovoLOG) PER UNIT SC SCH ×3 (06:00→12:00)
[2022-06-10 06:49] LABS: ALBUMIN 2.5 GM/DL (3.2-5.2); ALT/SGPT 16 U/L (12-78); BILIRUBIN,TOTAL 0.4 MG/DL (0.2-1.0); BLOOD UREA NITROGEN 24 MG/DL (7-18); CALCIUM LEVEL 8.1 MG/DL (8.8-10.2); CARBON DIOXIDE LEVEL 28 MEQ/L (21-32); CHLORIDE LEVEL 108 MEQ/L (98-107); CREATININE FOR GFR 0.67 MG/DL (0.55-1.30); GLOMERULAR FILTRATION RATE > 60.0 (>39); GLUCOSE, FASTING 91 MG/DL (70-100); POTASSIUM SERUM 4.5 MEQ/L (3.5-5.1); SODIUM LEVEL 140 MEQ/L (136-145)
[2022-06-10] MEDS: IPRATROPIUM 0.5MG/ALBUTEROL 2.5MG INH SOL UD 3ML (DUONEB) NEB SCH (07:31)
[2022-06-10] MEDS ORDERED: MULTIVITAMIN/MINERALS LIQUID 15ML ORAL SYRINGE PO SCH (09:00)
[2022-06-10] MEDS: DIAPER RELIEF PASTE (DESITIN) 60GM TOP SCH (10:13)
[2022-06-10] MEDS: DOCUSATE SOD LIQ 100MG/10ML UDC PEG SCH (10:13)
[2022-06-10] MEDS ORDERED: GUAI1SOL7 GT (10:30)
[2022-06-10] MEDS ORDERED: ACET1TAB55 GT (10:34)
[2022-06-10] MEDS ORDERED: MUCI600T31 PO (10:41)
[2022-06-10] MEDS ORDERED: ALBU2.5V10 NEB (13:54)
[2022-06-10] MEDS ORDERED: VENTAER INH (13:54)
[2022-06-10] MEDS ORDERED: GUAI100L6 PO (13:54)
[2022-06-10 14:00] VITALS: BP 159/62
== END 2022-06-10 14:30 | disposition home or self-care (01) ==
LOC: M ED 04:16 → M ED INP 04:17 → ENRESERV 13:37 → M MSPAV 15:19
PROVIDERS: ADMIT Internal Medicine; ATTEND Internal Medicine
DX: E87.20 Acidosis, unspecified (principal); B34.1 Enterovirus infection, unspecified; B34.8 Other viral infections of unspecified site; R11.10 Vomiting, unspecified; R05.8 Other specified cough; Z87.09 Personal history of other diseases of the respiratory system; Z93.1 Gastrostomy status; F72 Severe intellectual disabilities; G93.1 Anoxic brain damage, not elsewhere classified; E78.5 Hyperlipidemia, unspecified; I10 Essential (primary) hypertension; E11.9 Type 2 diabetes mellitus without complications; Z86.69 Personal history of other diseases of the nervous system and sense organs; M81.0 Age-related osteoporosis without current pathological fracture; M19.90 Unspecified osteoarthritis, unspecified site; Z79.899 Other long term (current) drug therapy; Z79.84 Long term (current) use of oral hypoglycemic drugs
CPT/HCPCS: 36415; 71045; 80048; 80053; 80076; 81002; 82550; 82553; 82803; 83605; 83880; 84145; 84443; 84484; 85025; 85027; 85610; 87040; 87486; 87581; 87633; 87798; 93005; 93041; 94640; 94760; 96361; 96365; 99285; G0378; J2543

== ENCOUNTER → 2022-07-28 | Outpatient (CLI) | payer MEDICARE, MEDICAID ==
[~2022-07-28] MED LIST changes: +ACET1TAB55 GT; +ALBU2.5V10 NEB; +BABY400D2 PEG; +BPRO1LIQ PO; +CALC200T15 PEG; +CETI5SOL3 PEG; +GUAI100L6 PO; +GUAI1SOL7 GT; +LISI10TA22 PEG; +METF500S3 PEG; +MUCI600T31 PO; +PRED20TA PO; +SIMV40TA20 PEG; +ZINC28PA TOP
== END ==
LOC: M WHC 13:42
PROVIDERS: ATTEND Family Medicine
DX: Z12.31 Encounter for screening mammogram for malignant neoplasm of breast (principal); Z13.820 Encounter for screening for osteoporosis; Z53.9 Procedure and treatment not carried out, unspecified reason

== ENCOUNTER → 2022-08-03 | Outpatient (CLI) | payer MEDICARE, MEDICAID ==
[2022-08-03 14:39] LABS: ALBUMIN 3.1 G/DL (3.2-5.2); ALKALINE PHOSPHATASE 179 U/L (46-116); ALT/SGPT 20 U/L (7.0-40); AST/SGOT 25 U/L (<34); BILIRUBIN,TOTAL 0.3 MG/DL (0.3-1.2); BLOOD UREA NITROGEN 36 MG/DL (9-23); CARBON DIOXIDE LEVEL 31 MMOL/L (20-31); CHLORIDE LEVEL 101 MMOL/L (98-107); CHOLESTEROL LEVEL 186 MG/DL (<200); CHOLESTEROL RISK RATIO 3.48 (<5); CREATININE FOR GFR 0.72 MG/DL (0.55-1.30); GLOMERULAR FILTRATION RATE > 60.0 (>39); GLUCOSE, FASTING 119 MG/DL (74-106); HDL CHOLESTEROL 53.3 MG/DL (>40); LDL CHOLESTEROL 73.9 MG/DL (<100); NON-HDL-C 133 MG/DL; SODIUM LEVEL 139 MMOL/L (136-145); TRIGLYCERIDES LEVEL 294 MG/DL (<150)
[2022-08-03 14:40] LABS: PREALBUMIN 24.7 MG/DL (10.0-40.0)
[2022-08-03 14:44] LABS: VITAMIN B12 LEVEL 867 PG/ML (211-911)
[2022-08-03 17:50] LABS: HEMOGLOBIN A1c 5.3 % (4.0-6.0)
== END ==
LOC: M PLALAB 10:28
PROVIDERS: ATTEND Family Medicine
DX: E11.9 Type 2 diabetes mellitus without complications (principal); I10 Essential (primary) hypertension; E78.5 Hyperlipidemia, unspecified; Z97.8 Presence of other specified devices

== ENCOUNTER → 2022-12-01 | Outpatient (CLI) | payer MEDICARE, MEDICAID ==
[~2022-12-01] MED LIST changes: +BARIUM SULFATE 700 MG TABLET (E-Z-DISK) As Ordered ONE; +E-Z-PAQUE 96% w/w SUSP 176GM BTL As Ordered ONE; +SIMV-254 PEG; +SIMV-254 PO; +TIMO0.5S20 OU; -TIMO0.5S29 OU; -TIMO1DRO OU; +TIMO1DRO5 OU; +VARIBAR NECTAR 40% w/v 240ML SUSP BTL As Ordered ONE; +VARIBAR PUDDING 40% w/v 230ML TUBE As Ordered ONE; -ZOCO40TA PEG
== END ==
LOC: M RAD 10:28
PROVIDERS: ATTEND Family Medicine
DX: R13.10 Dysphagia, unspecified (principal)

== ENCOUNTER → 2023-02-10 | Outpatient (CLI) | payer MEDICARE, MEDICAID ==
[~2023-02-10] MED LIST changes: -BARIUM SULFATE 700 MG TABLET (E-Z-DISK) As Ordered ONE; -E-Z-PAQUE 96% w/w SUSP 176GM BTL As Ordered ONE; +SULF1SUS10 PO; -VARIBAR NECTAR 40% w/v 240ML SUSP BTL As Ordered ONE; -VARIBAR PUDDING 40% w/v 230ML TUBE As Ordered ONE
== END ==
LOC: M WUC 14:28
PROVIDERS: ATTEND Family Medicine
DX: J69.0 Pneumonitis due to inhalation of food and vomit (principal); I51.7 Cardiomegaly; I70.0 Atherosclerosis of aorta

== ENCOUNTER 2023-02-12 10:38 | Inpatient (IN) | payer MEDICARE, MEDICAID ==
[~2023-02-12] VITALS: Ht 162.6 cm; Wt 82.0 kg
[~2023-02-12 10:38] MED LIST changes: -SULF1SUS10 PO
[2023-02-12 11:19] LABS: BASO # 0.1 10^3/uL (0.0-0.2); BASO % 0.5 % (0.0-1.0); EOS # 0.2 10^3/uL (0.0-0.5); HEMATOCRIT 38.4 % (36.0-47.0); HEMOGLOBIN 12.1 g/dl (12.0-15.5); LYMPH # 1.8 10^3/uL (1.5-5.0); LYMPH % 11.3 % (24.0-44.0); MEAN CORPUSCULAR HEMOGLOBIN 30.6 pg (27.0-33.0); MEAN CORPUSCULAR HGB CONC 31.5 g/dl (32.0-36.5); MONO % 6.5 % (2.0-8.0); NEUTROPHILS # 12.3 10^3/uL (1.5-8.5); NEUTROPHILS % 79.4 % (36.0-66.0); PLATELET COUNT, AUTOMATED 271 10^3/uL (150-450); RED BLOOD COUNT 3.96 10^6/uL (4.00-5.40); WHITE BLOOD COUNT 15.5 10^3/uL (4.0-10.0)
[2023-02-12 11:31] LABS: INR 0.91; PROTHROMBIN TIME 12.4 SECONDS (12.5-14.5)
[2023-02-12 11:36] LABS: CK-MB VALUE MASS < 1.0 NG/ML (<3.6)
[2023-02-12 11:38] LABS: ALKALINE PHOSPHATASE 125 U/L (46-116); ALT/SGPT 35 U/L (7.0-40); AST/SGOT 36 U/L (<34); BILIRUBIN,DIRECT < 0.1 MG/DL (<0.4); BILIRUBIN,TOTAL 0.2 MG/DL (0.3-1.2); BLOOD UREA NITROGEN 30 MG/DL (9-23); CALCIUM LEVEL 8.4 MG/DL (8.3-10.6); CARBON DIOXIDE LEVEL 30 MMOL/L (20-31); CHLORIDE LEVEL 96 MMOL/L (98-107); CPK CREATINE PHOSPHOKINASE 47 U/L (34-145); CREATININE FOR GFR 0.82 MG/DL (0.55-1.30); GLOMERULAR FILTRATION RATE > 60.0 (>39); GLUCOSE, FASTING 166 MG/DL (74-106); MB/CK RELATIVE INDEX 2.12 (< OR =4); POTASSIUM SERUM 4.5 MMOL/L (3.5-5.1); SODIUM LEVEL 133 MMOL/L (136-145); TOTAL PROTEIN 6.3 G/DL (5.7-8.2)
[2023-02-12 11:40] LABS: THYROID STIMULATING HORMONE 1.165 uIU/ML (0.55-4.78)
[2023-02-12 11:45] LABS: PROCALCITONIN 0.12 ng/ml
[2023-02-12 12:37] LABS: VENOUS BASE EXCESS 3.2 (-2.0-2.0); VENOUS HCO3 29.2 MMOL/L (23.0-27.0); VENOUS O2 SATURATION 94.5 % (60.0-80.0); VENOUS PARTIAL PRESSURE CO2 50.1 mmHg (38.0-50.0); VENOUS PARTIAL PRESSURE O2 69.5 mmHg (30.0-50.0); VENOUS PH 7.383 UNITS (7.330-7.430); VENOUS STANDARD HCO3 27.2 MMOL/L; VENOUS TOTAL CO2 30.7 MMOL/L (24.0-28.0)
[2023-02-12 13:03] LABS: CK-MB VALUE MASS < 1.0 NG/ML (<3.6)
[2023-02-12 13:04] LABS: CPK CREATINE PHOSPHOKINASE 47 U/L (34-145); MB/CK RELATIVE INDEX 2.12 (< OR =4)
[2023-02-12] MEDS ORDERED: PIPERACILLIN/TAZOBACTAM SOD 4.5 GM in D5W MINI-BAG PLUS 50 ML IV ONE (13:10)
[2023-02-12] MEDS ORDERED: ISOVUE-370 76% 100ML VIAL As Ordered ONE (13:28)
[2023-02-12] MEDS ORDERED: MED REC CURRENTLY UNOBTAINABLE XX SCH (15:20)
[2023-02-12] MEDS ORDERED: MED REC IN PROGRESS XX SCH (15:55)
[2023-02-12] MEDS ORDERED: NS 1,000 ML IV ONE ×2 (16:10→23:10)
[2023-02-12] MEDS ORDERED: GLUCAGON INJ 1MG VIAL SC PRN (16:20)
[2023-02-12] MEDS ORDERED: GLUCOSE 4GM CHEW TABLET PO PRN (16:20)
[2023-02-12] MEDS ORDERED: DEXTROSE 50% 50ML SYRINGE IV PRN (16:20)
[2023-02-12] MEDS ORDERED: ACETAMINOPHEN 325MG/10.15ML UDC GT PRN (16:25)
[2023-02-12] MEDS ORDERED: ALBUTEROL 90 MCG/ACT 8GM HFA INHALER INH PRN (16:25)
[2023-02-12] MEDS ORDERED: SULF1SUS10 PO (16:35)
[2023-02-12] MEDS ORDERED: HOME MED LIST COMPLETE! XX SCH (16:40)
[2023-02-12] MEDS: IPRATROPIUM 0.5MG/ALBUTEROL 2.5MG INH SOL UD 3ML (DUONEB) NEB SCH ×3 (16:43→22:43)
[2023-02-12] MEDS ORDERED: BISACODYL 10MG SUPP PR ONE (17:00)
[2023-02-12] MEDS ORDERED: THIAMINE 200MG 2ML VIAL IM ONE (18:00)
[2023-02-12] MEDS: INSULIN LISPRO (NovoLOG) PER UNIT SC SCH (18:00)
[2023-02-12 18:15] VITALS: BP 122/86; TEMP 98.6; O2SAT 96
[2023-02-12] MEDS: FLUTICASONE PROP 0.05% NASAL SPRAY 16 GM (FLONASE) NARES SCH (18:52)
[2023-02-12] MEDS: MIRALAX *UNIT DOSE* 17GM PACKET PEG SCH (18:59)
[2023-02-12 19:28] LABS: HEPATITIS B SURFACE ANTIGEN NEGATIVE (NEGATIVE)
[2023-02-12 19:48] LABS: HEPATITIS B CORE ANTIBODY IGM NEGATIVE (NEGATIVE); HEPATITIS C VIRUS ABY INDEX 0.08 INDEX (<0.8)
[2023-02-12 20:06] LABS: OSMOLALITY URINE 430 MOSM/KG (50-1400)
[2023-02-12 20:08] LABS: APPEARANCE, URINE CLEAR (CLEAR); BACTERIA, URINE AUTO NEGATIVE (NEGATIVE); BILIRUBIN, URINE AUTO NEGATIVE (NEGATIVE); BLOOD, URINE BLOOD NEGATIVE (NEGATIVE); COLOR, URINE YELLOW (YELLOW); GLUCOSE, URINE (UA) AUTO NEGATIVE (NEGATIVE); KETONE, URINE AUTO NEGATIVE (NEGATIVE); LEUKOCYTE ESTERASE, URINE AUTO NEGATIVE (NEGATIVE); NITRITE, URINE AUTO NEGATIVE (NEGATIVE); PROTEIN, URINE AUTO NEGATIVE (NEGATIVE); RBC, URINE AUTO 1 /HPF (0-3); SPECIFIC GRAVITY URINE AUTO 1.027 (1.002-1.035); SQUAMOUS EPITHELIAL CELL UR AU 1 /HPF (0-6); UROBILINOGEN, URINE AUTO 0.2 mg/dL (0.0-2.0); WBC, URINE AUTO 1 /HPF (0-3)
[2023-02-12 20:33] LABS: SODIUM,RANDOM URINE 52 MMOL/L
[2023-02-12 20:36] VITALS: BP 128/77; TEMP 98.1; O2SAT 96
[2023-02-12] MEDS: BRIMONIDINE 0.15% OPHTH SOLN 5 ML OU SCH (21:48)
[2023-02-12] MEDS: CETIRIZINE (ZyrTEC) 5 MG/5 ML UDC DYE FREE PEG SCH (21:48)
[2023-02-12] MEDS: DIAPER RELIEF PASTE (DESITIN) 60GM TOP SCH (21:48)
[2023-02-12] MEDS: SIMVASTATIN 40 MG TAB PEG SCH (21:48)
[2023-02-12] MEDS: traZODone 50 MG TAB PEG SCH (21:48)
[2023-02-12] MEDS: LATANOPROST 0.005% OPHTH SOLN 2.5 ML OU SCH (21:48)
[2023-02-12] MEDS: AMPICILLIN SOD/SULBACTAM SOD 3 GM in D5W MINI-BAG PLUS 100 ML IV SCH (21:52)
[2023-02-12 22:00] VITALS: BP 128/77; TEMP 98.1; O2SAT 96
[2023-02-12] MEDS ORDERED: guaiFENesin ER 600 MG TAB PO ONE (23:10)
[2023-02-12] MEDS ORDERED: DEXTROMETHORPHAN 60MG/10ML SUSP 90ML BTL(DELSYM) PO PRN (23:10)
[2023-02-12] MEDS ORDERED: guaiFENesin 200 MG TAB PO PRN (23:15)
[2023-02-13] VITALS (7 sets, daily range): BP systolic 80–145; BP diastolic 58–100; TEMP 97.3–98.2; O2SAT 91–97
[2023-02-13] MEDS: guaiFENesin/CODEINE SYRUP 5 ML UDC PEG PRN ×2 (00:25→08:26)
[2023-02-13] MEDS: AMPICILLIN SOD/SULBACTAM SOD 3 GM in D5W MINI-BAG PLUS 100 ML IV SCH ×4 (01:57→20:12)
[2023-02-13] MEDS: IPRATROPIUM 0.5MG/ALBUTEROL 2.5MG INH SOL UD 3ML (DUONEB) NEB SCH ×6 (03:10→23:09)
[2023-02-13] MEDS: INSULIN LISPRO (NovoLOG) PER UNIT SC SCH ×4 (05:55→17:39)
[2023-02-13 05:58] LABS: BASO # 0.1 10^3/uL (0.0-0.2); BASO % 0.4 % (0.0-1.0); EOS # 0.1 10^3/uL (0.0-0.5); EOS % 0.5 % (0.0-3.0); HEMATOCRIT 33.8 % (36.0-47.0); HEMOGLOBIN 10.4 g/dl (12.0-15.5); LYMPH # 1.6 10^3/uL (1.5-5.0); LYMPH % 11.6 % (24.0-44.0); MEAN CORPUSCULAR HEMOGLOBIN 30.8 pg (27.0-33.0); MEAN CORPUSCULAR HGB CONC 30.8 g/dl (32.0-36.5); MONO # 1.1 10^3/uL (0.0-0.8); MONO % 8.1 % (2.0-8.0); NEUTROPHILS # 10.6 10^3/uL (1.5-8.5); NEUTROPHILS % 78.2 % (36.0-66.0); PLATELET COUNT, AUTOMATED 240 10^3/uL (150-450); RED BLOOD COUNT 3.38 10^6/uL (4.00-5.40); WHITE BLOOD COUNT 13.5 10^3/uL (4.0-10.0)
[2023-02-13 06:39] LABS: CALCIUM LEVEL 8.2 MG/DL (8.3-10.6); CREATININE FOR GFR 1.02 MG/DL (0.55-1.30); GLOMERULAR FILTRATION RATE 56.1 (>39); MAGNESIUM LEVEL 2.1 MG/DL (1.8-2.4); PHOSPHORUS LEVEL 4.3 MG/DL (2.4-5.1); POTASSIUM SERUM 5.2 MMOL/L (3.5-5.1)
[2023-02-13] MEDS ORDERED: NS 1,000 ML IV ONE ×3 (08:00→12:00)
[2023-02-13 08:17] LABS: POTASSIUM SERUM 4.8 MMOL/L (3.5-5.1)
[2023-02-13] MEDS: MIRALAX *UNIT DOSE* 17GM PACKET PEG SCH (08:26)
[2023-02-13] MEDS: CALCIUM CARB SUSP 1250MG/5ML UNIT DOSE CUP PEG SCH (08:27)
[2023-02-13] MEDS: MULTIVITAMIN/MINERALS LIQUID 15ML ORAL SYRINGE PO SCH (08:28)
[2023-02-13] MEDS: DIAPER RELIEF PASTE (DESITIN) 60GM TOP SCH ×2 (08:28→20:22)
[2023-02-13] MEDS: BRIMONIDINE 0.15% OPHTH SOLN 5 ML OU SCH ×3 (08:28→20:21)
[2023-02-13] MEDS: FLUTICASONE PROP 0.05% NASAL SPRAY 16 GM (FLONASE) NARES SCH (08:28)
[2023-02-13] MEDS ORDERED: guaiFENesin ER 600 MG TAB PO SCH (09:00)
[2023-02-13 09:04] LABS: CHOLESTEROL RISK RATIO 3.54 (<5); LDL CHOLESTEROL 78.4 MG/DL (<100)
[2023-02-13 09:49] LABS: HEMOGLOBIN A1c 6.6 % (4.0-6.0)
[2023-02-13] MEDS ORDERED: THIAMINE INJection 500 MG in NS 100 ML IV SCH ×5 (10:00→18:00)
[2023-02-13] MEDS ORDERED: NS 1,000 ML IV SCH ×2 (10:45→12:00)
[2023-02-13] MEDS ORDERED: guaiFENesin SYRUP 200MG 10ML UDC PEG PRN (11:00)
[2023-02-13] MEDS ORDERED: ISOVUE-370 76% 100ML VIAL As Ordered ONE (13:34)
[2023-02-13] MEDS: NS 1,000 ML IV SCH (13:48)
[2023-02-13] MEDS ORDERED: SCOPOLAMINE 1MG TRANSDERMAL PATCH TOP ONE (16:00)
[2023-02-13] MEDS: THIAMINE INJection 500 MG in NS 100 ML IV SCH (17:44)
[2023-02-13] MEDS: ENOXAPARIN 40MG/0.4ML SYRINGE (J1650 PER 10MG) SC SCH (20:20)
[2023-02-13] MEDS: traZODone 50 MG TAB PEG SCH (20:21)
[2023-02-13] MEDS: SIMVASTATIN 40 MG TAB PEG SCH (20:21)
[2023-02-13] MEDS: CETIRIZINE (ZyrTEC) 5 MG/5 ML UDC DYE FREE PEG SCH (20:21)
[2023-02-13] MEDS: LATANOPROST 0.005% OPHTH SOLN 2.5 ML OU SCH (20:22)
[2023-02-14] MEDS: NS 1,000 ML IV SCH ×3 (01:34→15:37)
[2023-02-14] MEDS: INSULIN LISPRO (NovoLOG) PER UNIT SC SCH ×4 (01:37→18:00)
[2023-02-14] MEDS: THIAMINE INJection 500 MG in NS 100 ML IV SCH ×2 (01:42→10:41)
[2023-02-14 02:00] VITALS: BP 107/48; TEMP 98.1; O2SAT 96
[2023-02-14] MEDS: AMPICILLIN SOD/SULBACTAM SOD 3 GM in D5W MINI-BAG PLUS 100 ML IV SCH ×4 (02:39→20:09)
[2023-02-14] MEDS: IPRATROPIUM 0.5MG/ALBUTEROL 2.5MG INH SOL UD 3ML (DUONEB) NEB SCH ×5 (03:54→23:27)
[2023-02-14 05:46] LABS: HEMATOCRIT 35.7 % (36.0-47.0); HEMOGLOBIN 10.5 g/dl (12.0-15.5); MEAN CORPUSCULAR HEMOGLOBIN 30.1 pg (27.0-33.0); MEAN CORPUSCULAR HGB CONC 29.4 g/dl (32.0-36.5); MEAN CORPUSCULAR VOLUME 102.3 fl (80.0-96.0); PLATELET COUNT, AUTOMATED 239 10^3/uL (150-450); RED BLOOD COUNT 3.49 10^6/uL (4.00-5.40); WHITE BLOOD COUNT 14.7 10^3/uL (4.0-10.0)
[2023-02-14 06:00] VITALS: BP 105/60; TEMP 98.2; O2SAT 92
[2023-02-14 06:11] LABS: ALBUMIN 2.9 G/DL (3.2-5.2); ALKALINE PHOSPHATASE 140 U/L (46-116); ALT/SGPT 32 U/L (7.0-40); AST/SGOT 32 U/L (<34); BILIRUBIN,DIRECT < 0.1 MG/DL (<0.4); BILIRUBIN,TOTAL < 0.2 MG/DL (0.3-1.2); BLOOD UREA NITROGEN 33 MG/DL (9-23); CALCIUM LEVEL 8.6 MG/DL (8.3-10.6); CARBON DIOXIDE LEVEL 28 MMOL/L (20-31); CHLORIDE LEVEL 101 MMOL/L (98-107); CREATININE FOR GFR 1.17 MG/DL (0.55-1.30); GLOMERULAR FILTRATION RATE 47.9 (>39); GLUCOSE, FASTING 282 MG/DL (74-106); MAGNESIUM LEVEL 2.6 MG/DL (1.8-2.4); PHOSPHORUS LEVEL 4.1 MG/DL (2.4-5.1); POTASSIUM SERUM 5.2 MMOL/L (3.5-5.1); SODIUM LEVEL 135 MMOL/L (136-145); TOTAL PROTEIN 6.1 G/DL (5.7-8.2)
[2023-02-14 06:22] LABS: PROCALCITONIN 0.25 ng/ml
[2023-02-14] MEDS: MIRALAX *UNIT DOSE* 17GM PACKET PEG SCH (08:00)
[2023-02-14] MEDS: CALCIUM CARB SUSP 1250MG/5ML UNIT DOSE CUP PEG SCH (08:00)
[2023-02-14] MEDS: MULTIVITAMIN/MINERALS LIQUID 15ML ORAL SYRINGE PO SCH (08:02)
[2023-02-14] MEDS: DIAPER RELIEF PASTE (DESITIN) 60GM TOP SCH ×2 (08:04→20:10)
[2023-02-14] MEDS: FLUTICASONE PROP 0.05% NASAL SPRAY 16 GM (FLONASE) NARES SCH (08:05)
[2023-02-14] MEDS: BRIMONIDINE 0.15% OPHTH SOLN 5 ML OU SCH ×3 (08:05→20:09)
[2023-02-14 10:00] VITALS: BP 105/46; TEMP 97.5; O2SAT 97
[2023-02-14 10:13] LABS: CALCIUM LEVEL 8.2 MG/DL (8.3-10.6); CREATININE FOR GFR 1.22 MG/DL (0.55-1.30); GLOMERULAR FILTRATION RATE 45.6 (>39); POTASSIUM SERUM 5.3 MMOL/L (3.5-5.1)
[2023-02-14] MEDS ORDERED: HumuLIN R (REGULAR) INSULIN (NovoLIN R) **100U/ML** PER UNIT IV STA (12:28)
[2023-02-14] MEDS: DEXTROSE 50% 50ML SYRINGE IV STA ×2 (12:45→12:54)
[2023-02-14 14:00] VITALS: BP 105/50; TEMP 97.9; O2SAT 95
[2023-02-14] MEDS ORDERED: PATIROMER SORBITEX CALCIUM 8.4 GM POWDER PACKET (VELTASSA) PO ONE ×2 (14:00→15:00)
[2023-02-14] MEDS ORDERED: BISACODYL 10MG SUPP PR ONE (15:15)
[2023-02-14] MEDS ORDERED: REMOVE SCOPOLAMINE XX ONE (16:00)
[2023-02-14 18:17] LABS: CALCIUM LEVEL 8.4 MG/DL (8.3-10.6); CREATININE FOR GFR 1.46 MG/DL (0.55-1.30); GLOMERULAR FILTRATION RATE 37.1 (>39); POTASSIUM SERUM 5.1 MMOL/L (3.5-5.1)
[2023-02-14] MEDS ORDERED: NS 1,000 ML IV SCH (18:55)
[2023-02-14] MEDS: LATANOPROST 0.005% OPHTH SOLN 2.5 ML OU SCH (20:09)
[2023-02-14] MEDS: CETIRIZINE (ZyrTEC) 5 MG/5 ML UDC DYE FREE PEG SCH (20:09)
[2023-02-14] MEDS: traZODone 50 MG TAB PEG SCH (20:09)
[2023-02-14] MEDS: SIMVASTATIN 40 MG TAB PEG SCH (20:09)
[2023-02-14] MEDS: ENOXAPARIN 40MG/0.4ML SYRINGE (J1650 PER 10MG) SC SCH (20:09)
[2023-02-14 22:00] VITALS: BP 101/70; TEMP 97.9; O2SAT 93
[2023-02-15] MEDS: INSULIN LISPRO (NovoLOG) PER UNIT SC SCH ×2 (00:37→05:57)
[2023-02-15] MEDS: AMPICILLIN SOD/SULBACTAM SOD 3 GM in D5W MINI-BAG PLUS 100 ML IV SCH (01:29)
[2023-02-15] MEDS: IPRATROPIUM 0.5MG/ALBUTEROL 2.5MG INH SOL UD 3ML (DUONEB) NEB SCH ×2 (01:51→07:12)
[2023-02-15 02:00] VITALS: BP 118/64; TEMP 97.7; O2SAT 97
[2023-02-15 06:00] VITALS: BP 141/68; TEMP 97.5; O2SAT 97
[2023-02-15 06:09] LABS: HEMATOCRIT 37.1 % (36.0-47.0); HEMOGLOBIN 11.1 g/dl (12.0-15.5); MEAN CORPUSCULAR HGB CONC 29.9 g/dl (32.0-36.5); MEAN CORPUSCULAR VOLUME 103.6 fl (80.0-96.0); PLATELET COUNT, AUTOMATED 249 10^3/uL (150-450); RED BLOOD COUNT 3.58 10^6/uL (4.00-5.40)
[2023-02-15 06:23] LABS: C REACTIVE PROTEIN QUANTITATIV 3.4 MG/DL (<1.0)
[2023-02-15 06:34] LABS: ALBUMIN 2.8 G/DL (3.2-5.2); BILIRUBIN,TOTAL 0.2 MG/DL (0.3-1.2); CALCIUM LEVEL 8.6 MG/DL (8.3-10.6); CREATININE FOR GFR 2.03 MG/DL (0.55-1.30); GLOMERULAR FILTRATION RATE 25.3 (>39); MAGNESIUM LEVEL 2.9 MG/DL (1.8-2.4); PHOSPHORUS LEVEL 6.7 MG/DL (2.4-5.1); POTASSIUM SERUM 6.2 MMOL/L (3.5-5.1); TOTAL PROTEIN 6.2 G/DL (5.7-8.2)
[2023-02-15 07:16] LABS: LYMPHOCYTES 5 % (16-44); MONOCYTES 8 % (0-5); NEUTROPHILS 86 % (28-66); PLATELET ESTIMATE NORMAL (NORMAL)
[2023-02-15 07:18] LABS: ANISOCYTOSIS 1+; MICROCYTOSIS 1+
[2023-02-15] MEDS ORDERED: NS 1,000 ML IV SCH (07:30)
[2023-02-15] MEDS ORDERED: PIPERACILLIN/TAZOBACTAM SOD 3.375 GM in D5W MINI-BAG PLUS 50 ML IV SCH (08:00)
[2023-02-15] MEDS ORDERED: INSULIN LISPRO (NovoLOG) PER UNIT IV STA (08:30)
[2023-02-15] MEDS ORDERED: SODIUM BICARBONATE 8.4% INJ 50ML SYRINGE ONE (08:31)
[2023-02-15] MEDS ORDERED: DEXTROSE 50% 50ML SYRINGE ONE (08:31)
[2023-02-15] MEDS ORDERED: CALCIUM CHLORIDE 10% 1 GM/10 ML SYR ONE (08:31)
[2023-02-15] MEDS ORDERED: EPINEPHrine 1MG/10ML SYRINGE 1.5IN ONE (08:31)
[2023-02-15] MEDS ORDERED: LEVEMIR (INSULIN DETEMIR) 1 UNITS/0.01ML SC SCH (09:00)
[2023-02-17 15:08] LABS: BODY FLUID CULTURE Not indicated. (.); LEGIONELLA ANTIGEN URINE Negative (Negative); ORGANISM ID Not indicated. (.); SPECIMEN SOURCE Urine (.); URINE STREP PNEUMONIAE ANTIGEN Negative (Negative)
== END 2023-02-15 08:32 | disposition expired | DRG 177 ==
LOC: M ED 10:38 → EDBD 10:38 → M ED INP 15:45 → ENRESERV 16:34 → M MSPAV 18:23
PROVIDERS: ADMIT Internal Medicine; ATTEND Internal Medicine
DX: J69.0 Pneumonitis due to inhalation of food and vomit (principal); J96.01 Acute respiratory failure with hypoxia; F72 Severe intellectual disabilities; E87.20 Acidosis, unspecified; E87.1 Hypo-osmolality and hyponatremia; N17.9 Acute kidney failure, unspecified; E78.5 Hyperlipidemia, unspecified; I46.9 Cardiac arrest, cause unspecified; M81.0 Age-related osteoporosis without current pathological fracture; E87.5 Hyperkalemia; G40.909 Epilepsy, unspecified, not intractable, without status epilepticus; R13.12 Dysphagia, oropharyngeal phase; E11.9 Type 2 diabetes mellitus without complications; I10 Essential (primary) hypertension; M19.90 Unspecified osteoarthritis, unspecified site; K76.0 Fatty (change of) liver, not elsewhere classified; R74.01 Elevation of levels of liver transaminase levels; R11.10 Vomiting, unspecified; T37.0X5A Adverse effect of sulfonamides, initial encounter; Z79.84 Long term (current) use of oral hypoglycemic drugs; Z79.899 Other long term (current) drug therapy; Z87.820 Personal history of traumatic brain injury; Z90.79 Acquired absence of other genital organ(s); Z93.1 Gastrostomy status; Z86.69 Personal history of other diseases of the nervous system and sense organs